=== PATIENT | female | born 1965 | race Caucasian/White ===

== ENCOUNTER 2017-04-27 16:04 | Emergency (ER) | payer BC ==
[~2017-04-27] VITALS: Ht 172.7 cm; Wt 113.4 kg
[~2017-04-27 16:04] MED LIST: AMOX-355 PO; ATRV10T PO; CODE118S2 PO; DOXY-233 PO; EST025TD TD; ESTR0.5T PO; Hydrocodone Bit/Acetaminophen PO; IBP600T1 PO; IPRA3AMP INH; Ibuprofen PO; LACT1CAP8 PO; LEVO500T80 PO; LEVO750T39 PO; LORA10TA76 PO; LOSA1TAB19 PO; LOSA1TAB26 PO; NEBU-140 MC; Simethicone PO; VALS1TAB4 PO; VICODIN PO
--- OUTSIDE RECORDS SUMMARY | 2017-04-27 16:09 | XMS REPORT | Clinical Summary ---
Author Author [facility] Organization [facility] Address Unknown Phone Unavailable Care Team Providers Care Senior Project Manager Engineering Name Role Phone Raad Hernandez MD Unavailable Angely So MD Unavailable Source Comments Some departments are not documenting in the electronic medical record. If you do not see the information that you expected, contact Release of Information in the Health Information Management department at [phone] for further assistance in locating additional records.[facility] Allergies Active Allergy Reactions Severity Noted Date Comments Cephalexin HIVES Medium 08/06/2014 Current Medications Prescription Sig. Disp. Refills Start End Date Status Date losartan/hydrochlorothiaz Take by mouth daily. Active alex (HYZAAR) 100/12.5 mg tablet IBUPROFEN PO Take by mouth. Active cetirizine (ZYRTEC) 10 mg 02/25/19 Active tablet 17 fluticasone (FLONASE) 50 05/08/19 Active mcg/actuation nasal spray 17 Active Problems Problem Noted Date History of optic neuritis 08/06/2014 Overview: Onset May 2014 MRI head 2015 essentially normal- a few tiny scattered white matter lesions. 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 Discussed with patient that she continues to have about a 20% risk of going on to develop MS. Will repeat MRI brain in 1 year. Encouraged healthy lifestyle with diet and exercise. Family History Medical History Relation Name Comments Cataract Father Coronary Artery Disease Father Hypertension Father Neurologic Disorder Maternal Alzheimer's Grandfather Diabetes Maternal Uncle Diabetes Maternal Uncle Blindness Mother prism in glasses, bleed OS Stroke Mother Thyroid Disease Mother Cancer Paternal Aunt Leukemia Cancer Paternal Metastasis to bones Grandfather Neurologic Disorder Paternal Dementia Grandmother Relation Name Status Comments Father Maternal Grandfather Maternal Uncle Maternal Uncle Mother Paternal Aunt Paternal Grandfather Paternal Grandmother Social History Tobacco Use Types Packs/Day Years Used Date Never Smoker Smokeless Tobacco: Never Used Alcohol Use Drinks/Week oz/Week Comments Yes 0 Standard 0.0 ~2x/yr drinks or equivalent Sex Assigned at Date Recorded Not on file Last Filed Vital Signs Vital Sign Reading Time Taken Blood Pressure 138/96 01/20/2015 12:21 PM [facility] Pulse 63 01/20/2015 12:21 PM [facility] Temperature - - Respiratory Rate - - Oxygen Saturation - - Inhaled Oxygen - - Concentration Weight 115 kg (253 lb 8.5 oz) 05/13/2016 1:35 PM CDT Height 172.7 cm (5' 8") 05/13/2016 1:35 PM CDT Body Mass Index 38.55 05/13/2016 1:35 PM CDT Plan of Treatment Health Maintenance Due Date Last Done Comments PHYSICAL (COMPREHENSIVE) 1973 EXAM PERTUSSIS VACCINE 1977 TETANUS VACCINE 04/24/1983 CERVICAL CANCER SCREENING 1996 BREAST CANCER SCREENING 2006 COLORECTAL CANCER 2016 SCREENING INFLUENZA VACCINE 11/21/2017 Results Not on filefrom Last 3 Months
--- OUTSIDE RECORDS SUMMARY | 2017-04-27 16:11 | XMS REPORT | CCD ---
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 Name Role Phone PP Unavailable CCM Unavailable Summary Purpose Interface Exchange Insurance Providers Payer name Policy type / Coverage type Covered constitution party ID Effective Begin Date Effective End Date Blue Cross Blue [facility] Blue Cross/Blue [facility] [id number] Unknown Unknown Family history Grandfather Diagnosis Age At Onset No Family Disease Entered N/A Runs in the family Diagnosis Age At Onset No Family Disease Entered N/A Mother Diagnosis Age At Onset Hypertension Unknown Stroke Unknown Brother Diagnosis Age At Onset Denies: Hypertension Unknown Hyperlipidemia Unknown Father Diagnosis Age At Onset Hypertension Unknown Hypercholesterolemia Unknown Social History Social History Element Codes Description Effective Dates Marital status Unknown 10/03/2012 Employment Unknown Currently employed [employer] 10/03/[address]: 063749740 Never smoker 10/03/[address]: 102795872 Never drinks alcohol 10/03/2012 Has the patient ever used illegal drugs? Unknown Has never used illegal drugs 10/03/2012 Allergies, Adverse Reactions, Alerts Allergies, Adverse Reactions, Alerts data not found Past Medical History Illness Codes Condition Status Onset Date Resolved Date Abrasion of vagina and vulva, initial encounter ICD-9: 911.0 ICD-10: S30.814A Active 11/25/2016 Unknown Encounter for gynecological examination (general) (routine ) without abnormal findings ICD-9: V72.31 ICD-10: Z01.419 Active 11/25/2016 Unknown Allergic rhinitis due to pollen ICD-9: 477.0 ICD-10: J30.1 Active 07/09/2016 Unknown Low back pain ICD-9: 724.2 ICD-10: M54.5 Active 07/09/2016 Unknown Other allergic rhinitis ICD-9: 477.8 ICD-10: J30.89 Active 01/25/2016 Unknown Acute laryngopharyngitis ICD-9: 465.0 ICD-10: J06.0 Active 12/11/2015 Unknown Other acute sinusitis ICD-9: 461.8 ICD-10: J01.80 Active 11/25/2015 Unknown Acute recurrent maxillary sinusitis ICD-9: 461.0 ICD-10: J01.01 Active 06/24/2015 Unknown Acute upper respiratory infection, unspecified ICD-9: 465.9 ICD-10: J06.9 Active 06/24/2015 Unknown Other allergic rhinitis ICD-9: 477.9 ICD-10: J30.89 Active 06/24/2015 Unknown Other obesity due to excess calories ICD-9: 278.00 ICD-10: E66.09 Active 06/24/2015 Unknown Cough ICD-9: 786.2 ICD-10: R05 Active 05/01/2015 Unknown Encounter for follow-up examination after completed treatment for conditions other than malignant neoplasm ICD-9: V67.59 ICD-10: Z09 Active 05/01/2015 Unknown Other specified noninfective gastroenteritis and colitis ICD-9: 558.9 ICD-10: K52.89 Active 05/01/2015 Unknown Unspecified bacterial pneumonia ICD-9: 482.9 ICD-10: J15.9 Active 05/01/2015 Unknown Hypoxemia ICD-9: 799.02 ICD-10: R09.02 Active 04/20/2015 Unknown Nausea with vomiting, unspecified ICD-9: 787.01 ICD-10: R11.2 Active 04/20/2015 Unknown Other acute sinusitis ICD-9: 461.9 ICD-10: J01.80 Active 04/14/2015 Unknown ACUTE SINUSITIS ICD-9 : 461.9 Active 09/02/2014 Unknown ALLERGIC RHINITIS ICD- 9: 477.9 Active 09/02/2014 Unknown Sudden visual loss of left eye ICD-9: 368.11 Active 05/27/2014 Unknown ESSENTIAL HYPERTENSION ICD-9: 401.9 Active 04/30/2014 Unknown MALAISE AND FATIGUE ICD-9: 780.79 Active 04/30/2014 Unknown Menopausal symptoms ICD-9: 627.2 Active 04/30/2014 Unknown ACUTE FRONTAL SINUSITIS ICD-9: 461.1 Active 04/04/2014 Unknown COUGH ICD-9: 786.2 Active 04/04/2014 Unknown HEADACHE ICD-9: 784.0 Active 04/04/2014 Unknown Ovarian mass ICD-9: 620.9 Active 12/04/2013 Unknown Uterine fibroid ICD-9 : 218.9 Active 12/04/2013 Unknown Abdominal pain ICD-9: 789.00 Active 10/25/2013 Unknown Diarrhea ICD-9: 787.91 Active 10/25/2013 Unknown DYSURIA ICD-9: 788.1 Active 10/16/2013 Unknown Hyperlipidemia ICD-9: 272.4 Active 07/30/2013 Unknown ROUTINE GYNE EXAM ICD- 9: V72.31 Active 10/26/2012 Unknown epidural injections Unknown Active 08/21/2007 Unknown herniated disc Unknown Active 10/03/2012 Unknown Hyperlipidemia Unknown Active 10/03/2012 Unknown Hypertension Unknown Active 10/03/2012 Unknown OBESITY ICD-9: 278.00 Active 10/03/2012 Unknown Problems Condition Codes Effective Dates Condition Status Abrasion of vagina and vulva, initial encounter ICD-9: 911.0 ICD-10: S30.814A 11/25/2016 Active Encounter for gynecological examination (general) (routine ) without abnormal findings ICD-9: V72.31 ICD-10: Z01.419 11/25/2016 Active Allergic rhinitis due to pollen ICD-9: 477.0 ICD-10: J30.1 07/09/2016 Active Low back pain ICD-9: 724.2 ICD-10: M54.5 07/09/2016 Active Other allergic rhinitis ICD-9: 477.8 ICD-10: J30.89 01/25/2016 Active Acute laryngopharyngitis ICD-9: 465.0 ICD-10: J06.0 12/11/2015 Active Other acute sinusitis ICD-9: 461.8 ICD-10: J01.80 11/25/2015 Active Acute recurrent maxillary sinusitis ICD-9: 461.0 ICD-10: J01.01 06/24/2015 Active Acute upper respiratory infection, unspecified ICD-9: 465.9 ICD-10: J06.9 06/24/2015 Active Other allergic rhinitis ICD-9: 477.9 ICD-10: J30.89 06/24/2015 Active Other obesity due to excess calories ICD-9: 278.00 ICD-10: E66.09 06/24/2015 Active Cough ICD-9: 786.2 ICD-10: R05 05/01/2015 Active Encounter for follow-up examination after completed treatment for conditions other than malignant neoplasm ICD-9: V67.59 ICD-10: Z09 05/01/2015 Active Other specified noninfective gastroenteritis and colitis ICD-9: 558.9 ICD-10: K52.89 05/01/2015 Active Unspecified bacterial pneumonia ICD-9: 482.9 ICD-10: J15.9 05/01/2015 Active Hypoxemia ICD-9: 799.02 ICD-10: R09.02 04/20/2015 Active Nausea with vomiting, unspecified ICD-9: 787.01 ICD-10: R11.2 04/20/2015 Active Other acute sinusitis ICD-9: 461.9 ICD-10: J01.80 04/14/2015 Active ACUTE SINUSITIS ICD-9 : 461.9 09/02/2014 Active ALLERGIC RHINITIS ICD- 9: 477.9 09/02/2014 Active Sudden visual loss of left eye ICD-9: 368.11 05/27/2014 Active ESSENTIAL HYPERTENSION ICD-9: 401.9 04/30/2014 Active MALAISE AND FATIGUE ICD-9: 780.79 04/30/2014 Active Menopausal symptoms ICD-9: 627.2 04/30/2014 Active ACUTE FRONTAL SINUSITIS ICD-9: 461.1 04/04/2014 Active COUGH ICD-9: 786.2 04/04/2014 Active HEADACHE ICD-9: 784.0 04/04/2014 Active Ovarian mass ICD-9: 620.9 12/04/2013 Active Uterine fibroid ICD-9 : 218.9 12/04/2013 Active Abdominal pain ICD-9: 789.00 10/25/2013 Active Diarrhea ICD-9: 787.91 10/25/2013 Active DYSURIA ICD-9: 788.1 10/16/2013 Active Hyperlipidemia ICD-9: 272.4 07/30/2013 Active ROUTINE GYNE EXAM ICD- 9: V72.31 10/26/2012 Active epidural injections Unknown 08/21/2007 Active herniated disc Unknown 10/03/2012 Active Hyperlipidemia Unknown 10/03/2012 Active Hypertension Unknown 10/03/2012 Active OBESITY ICD-9: 278.00 10/03/2012 Active Medications Medication Codes Instructions Start Date Stop Date Status Fill Instructions Zyrtec 10 mg tablet RxNorm: 6407247 1 TABLET(S) PO DAILY 03/0712/01/2017 Active losartan 100 mg-hydrochlorothiazide 12.5 mg tablet RxNorm: 601717 1 TABLET(S) PO DAILY 02/10/2017 09/07/2017 Active ProAir HFA 90 mcg/actuation aerosol inhaler RxNorm: 907026 1-2 INH PRN shortness of breath 11/25/2016 No Stop Date Active Flonase Allergy Relief 50 mcg/actuation nasal spray, suspension RxNorm: 4733314 1 SPRAY NASAL BID 09/16/2016 No Stop Date Active prednisone 20 mg tablet RxNorm: 189524 1 Tablet(s) PO BID 07/1207/11/2016 Inactive Augmentin 875 mg-125 mg tablet RxNorm: 022892 1 Tablet(s) PO BID 07/12/2016 07/18/2016 Inactive prednisone 20 mg tablet RxNorm: 265681 1 Tablet(s) PO BID 07/1207/16/2016 Inactive Kenalog 40 mg/mL suspension for injection RxNorm: 3950431 1.5 Milliliter(s) Inj 07/09/2016 07/09/2016 Inactive losartan 100 mg-hydrochlorothiazide 12.5 mg tablet RxNorm: 268084 1 Tablet(s) PO daily 06/10/2016 02/04/2017 Inactive Flonase Allergy Relief 50 mcg/actuation nasal spray, suspension RxNorm: 0993405 1 SPRAY NASAL BID 05/07/20162016 Inactive Flonase Allergy Relief 50 mcg/actuation nasal spray, suspension RxNorm: 0006732 1 SPRAY NASAL BID 02/19/20162016 Inactive Levaquin 500 mg tablet RxNorm: 300165 1 Tablet(s) PO daily 08/201502/03/2016 Inactive Flonase Allergy Relief 50 mcg/actuation nasal spray, suspension RxNorm: 5477310 1 Alpha NASAL BID 01/26/20162015 Inactive Zyrtec 10 mg tablet RxNorm: 9468481 1 Tablet(s) PO daily 01/2511/20/2016 Inactive albuterol sulfate 2.5 mg/3 mL (0.083 %) solution for nebulization RxNorm: 410105 1 Milliliter(s) INH 12/12/20152016 Inactive Zyrtec 10 mg tablet RxNorm: 6117347 1 Tablet(s) PO daily 12/1101/10/2016 Inactive Augmentin 875 mg-125 mg tablet RxNorm: 142198 1 Tablet(s) PO BID 12/12/2015 12/21/2015 Inactive Levaquin 500 mg tablet RxNorm: 986655 1 Tablet(s) PO daily 06/201512/02/2015 Inactive Diflucan 150 mg tablet RxNorm: 896330 1 Tablet(s) PO daily start after finished with levaquin 11/26/2015 11/30/2015 Inactive Kenalog 40 mg/mL suspension for injection RxNorm: 7831169 1 Milliliter(s) Inj 11/26/2015 11/26/2015 Inactive losartan 100 mg-hydrochlorothiazide 12.5 mg tablet RxNorm: 895844 1 Tablet(s) PO daily 06/30/2015 06/09/2016 Inactive Augmentin 875 mg-125 mg tablet RxNorm: 007378 1 Tablet(s) PO BID 06/25/2015 07/04/2015 Inactive Kenalog 40 mg/mL suspension for injection RxNorm: 5531158 Milliliter(s) Inj 06/25/2015 06/25/2015 Inactive Levaquin 500 mg tablet RxNorm: 397089 1 Tablet(s) PO daily 04/21/2015 Inactive prednisone 20 mg tablet RxNorm: 392376 2 Tablet(s) PO daily 04/19/2015 Inactive Augmentin 875 mg-125 mg tablet RxNorm: 932277 1 Tablet(s) PO BID 03/11/2015 03/17/2015 Inactive Kenalog 40 mg/mL suspension for injection RxNorm: 8984428 Milliliter(s) Inj 03/11/2015 03/11/2015 Inactive losartan 100 mg-hydrochlorothiazide 12.5 mg tablet RxNorm: 862556 1 TABLET(S) DAILY 1 TABLET(S) PO DAILY 02/11/2015 Inactive losartan 100 mg-hydrochlorothiazide 12.5 mg tablet RxNorm: 532097 1 TABLET(S) DAILY 1 TABLET(S) PO DAILY 10/10/2014 Inactive Kenalog 40 mg/mL suspension for injection RxNorm: 0144040 Milliliter(s) Inj 09/03/2014 09/03/2014 Inactive amoxicillin 500 mg tablet RxNorm: 089335 1 Tablet(s) PO TID 09/12/2014 Inactive Kenalog 40 mg/mL suspension for injection RxNorm: 9980663 2 Milliliter(s) Inj 05/27/2014 05/27/2014 Inactive prednisone 10 mg tablet RxNorm: 351449 6pills days #1-3, 4pills days #4-6, 2pills days#7-9, 1pill days #10-13, 1/2 pill every other day x4 doses then stop taper 05/27/2014 11/25/2015 Inactive losartan 100 mg-hydrochlorothiazide 12.5 mg tablet RxNorm: 641252 1 Tablet(s) daily 1 TABLET(S) PO DAILY 05/06/201401/2015 Inactive estradiol 0.5 mg tablet RxNorm: 177239 1 Tablet(s) PO BID 04/3011/24/2016 Inactive Kenalog 40 mg/mL suspension for injection RxNorm: 1031903 Milliliter(s) Inj 04/04/2014 04/04/2014 Inactive sulfamethoxazole 800 mg-trimethoprim 160 mg tablet RxNorm: 424783 1 Tablet(s) PO BID 04/04/2014 04/13/2014 Inactive losartan 100 mg-hydrochlorothiazide 12.5 mg tablet RxNorm: 279334 1 TABLET(S) PO DAILY 11/05/2013 04/03/2014 Inactive Flagyl 500 mg tablet RxNorm: 947218 1 Tablet(s) PO TID 201310/20/2013 Inactive ciprofloxacin 500 mg tablet RxNorm: 679435 1 Tablet(s) PO BID 10/16/2013 10/22/2013 Inactive fluconazole 150 mg tablet RxNorm: 938258 1 Tablet(s) PO every other day 10/16/2013 10/24/2013 Inactive Lipitor 10 mg tablet RxNorm: 425459 1 TABLET(S) PO QPM TAKE 1 TABLET BY MOUTH DAILY 10/08/2013 10/08/2013 Inactive Lipitor 10 mg tablet RxNorm: 768899 1 Tablet(s) PO QPM TAKE 1 TABLET BY MOUTH DAILY 07/05/2013 10/02/2013 Inactive Lipitor 10 mg tablet RxNorm: 742505 Tablet(s) PO TAKE 1 TABLET BY MOUTH DAILY 07/05/2013 10/02/2013 Inactive Lipitor 10 mg tablet RxNorm: 625906 Tablet(s) PO TAKE 1 TABLET BY MOUTH DAILY 06/04/2013 07/04/2013 Inactive losartan 100 mg-hydrochlorothiazide 12.5 mg tablet RxNorm: 637349 1 Tablet(s) PO daily 05/16/2013 11/04/2013 Inactive Lipitor 10 mg tablet RxNorm: 474179 1 Tablet(s) PO daily 201210/05/2012 Inactive Lipitor 10 mg tablet RxNorm: 844336 1 Tablet(s) PO daily 201205/03/2013 Inactive losartan 100 mg-hydrochlorothiazide 12.5 mg tablet RxNorm: 781850 1 Tablet(s) PO daily No Start Date 05/15/2013 Inactive Medication Administered Medication Codes Instructions Start Date Status Kenalog 40 mg/mL suspension for injection RxNorm: 9397335 1.5Milliliter 07/09/2016 No longer Active Kenalog 40 mg/mL suspension for injection RxNorm: 3606337 1Milliliter 11/26/2015 No longer Active Kenalog 40 mg/mL suspension for injection RxNorm: 8026880 Milliliter 06/25/2015 No longer Active Kenalog 40 mg/mL suspension for injection RxNorm: 0381048 Milliliter 03/11/2015 No longer Active Kenalog 40 mg/mL suspension for injection RxNorm: 6357918 Milliliter 09/03/2014 No longer Active Kenalog 40 mg/mL suspension for injection RxNorm: 8326619 2Milliliter 05/27/2014 No longer Active Kenalog 40 mg/mL suspension for injection RxNorm: 7919534 Milliliter 04/04/2014 No longer Active Immunizations No Immunization data Assessments Condition Codes Effective Dates Encounter for gynecological examination (general) (routine) without abnormal findings ICD-10: Z01.419 ICD-9: V72.31 11/25/2016 Abrasion of vagina and vulva, initial encounter ICD-10: S30.814A ICD-9: 911.0 11/25/2016 Allergic rhinitis due to pollen ICD-10: J30.1 ICD-9: 477.0 07/09/2016 Low back pain ICD-10: M54.5 ICD-9: 724.2 07/09/2016 Other allergic rhinitis ICD-10: J30.89 ICD-9: 477.8 01/26/2016 Acute laryngopharyngitis ICD-10: J06.0 ICD-9: 465.0 12/12/2015 Other acute sinusitis ICD-10: J01.80 ICD-9: 461.8 11/26/2015 Other allergic rhinitis ICD-10: J30.89 ICD-9: 477.9 06/25/2015 Acute recurrent maxillary sinusitis ICD-10: J01.01 ICD-9: 461.0 06/25/2015 Acute upper respiratory infection, unspecified ICD-10: J06.9 ICD-9: 465.9 06/25/2015 Other obesity due to excess calories ICD-10: E66.09 ICD-9: 278.00 06/25/2015 Encounter for follow-up examination after completed treatment for conditions other than malignant neoplasm ICD-10: Z09 ICD-9: V67.59 05/02/2015 Cough ICD-10: R05 ICD-9: 786.2 05/02/2015 Other specified noninfective gastroenteritis and colitis ICD -10: K52.89 ICD-9: 558.9 05/02/2015 Unspecified bacterial pneumonia ICD-10: J15.9 ICD-9: 482.9 05/02/2015 Hypoxemia ICD-10: R09.02 ICD-9: 799.02 04/21/2015 Nausea with vomiting, unspecified ICD-10: R11.2 ICD-9: 787.01 04/21/2015 Other acute sinusitis ICD-10: J01.80 ICD-9: 461.9 04/15/2015 ALLERGIC RHINITIS ICD-9: 477.9 2014 ACUTE SINUSITIS ICD-9: 461.9 09/03/2014 Pentecostalism tenderness ICD-9: 784.0 2014 Sudden visual loss of left eye ICD-9: 368.11 05/27/2014 ESSENTIAL HYPERTENSION ICD-9: 401.9 04/30 MALAISE AND FATIGUE ICD-9: 780.79 2014 Menopausal symptoms ICD-9: 627.2 2014 ACUTE FRONTAL SINUSITIS ICD-9: 461.1 01/2015 COUGH ICD-9: 786.2 04/04/2014 Abdominal pain ICD-9: 789.00 12/04/2013 Uterine fibroid ICD-9: 218.9 12/04/2013 Ovarian mass ICD-9: 620.9 12/04/2013 Diarrhea ICD-9: 787.91 10/25/2013 DYSURIA ICD-9: 788.1 10/16/2013 Hyperlipidemia ICD-9: 272.4 07/30/2013 ROUTINE GYNE EXAM ICD-9: V72.31 2012 OBESITY ICD-9: 278.00 10/03/2012 Reason For Visit Reason For Visit Effective Dates Notes vaginal bleeding 11/25/2016 sinus congestion 07/09/2016 sinus congestion 01/26/2016 sinus congestion 12/12/2015 sinus congestion 11/26/2015 cough 06/25/2015 cough 05/02/2015 cough 04/21/2015 cough 04/15/2015 sinus congestion 03/11/2015 cough 09/03/2014 vision change 05/27/2014 fatigue 04/30/2014 hot flashes sinus congestion 04/04/2014 abdominal pain 12/04/2013 abdominal pain 10/25/2013 dysuria 10/16/2013 hypertension 07/30/2013 well woman exam (40-65 years) 10/26/2012 hypertension 10/03/2012 Results No Results data Review of Systems System Result Effective Dates Constitutional recent illness 11/25/2016 Constitutional No night sweats 2016 Constitutional No chills 11/25/2016 Constitutional No diaphoresis 11/25/2016 Constitutional fatigue 11/25/2016 Constitutional No insomnia 11/25/2016 Constitutional malaise 11/25/2016 Eyes No eye discharge 11/25/2016 Eyes No eye erythema 11/25/2016 Ears/Nose/Throat/Neck No dizziness 2016 Ears/Nose/Throat/Neck No nasal discharge 11/25/2016 Ears/Nose/Throat/Neck No otalgia 2016 Ears/Nose/Throat/Neck No sinus congestion 11/25/2016 Cardiovascular No chest pain/pressure 06/2016 Respiratory No productive sputum 2016 Respiratory No chest congestion 2016 Respiratory cough 11/25/2016 Gastrointestinal No abdominal pain 2016 Gastrointestinal No constipation 2016 Gastrointestinal No diarrhea 11/25/2016 Gastrointestinal No nausea 11/25/2016 Gastrointestinal No vomiting 11/25/2016 Dermatologic No sores 11/25/2016 Psychiatric No anxiety 11/25/2016 Psychiatric No depression 11/25/2016 Respiratory chest tightness 11/25/2016 Genitourinary/Nephrology vaginal discharge 11/25/2016 Constitutional recent illness 07/09/2016 Constitutional No anorexia 07/09/2016 Constitutional No night sweats 2016 Constitutional No chills 07/09/2016 Constitutional No diaphoresis 07/09/2016 Constitutional No fatigue 07/09/2016 Constitutional No fever 07/09/2016 Constitutional No insomnia 07/09/2016 Constitutional No malaise 07/09/2016 Constitutional No weight loss 07/09/2016 Constitutional No weight gain 07/09/2016 Eyes No eye discharge 07/09/2016 Eyes No eye erythema 07/09/2016 Ears/Nose/Throat/Neck nasal allergies Ears/Nose/Throat/Neck nasal discharge Ears/Nose/Throat/Neck otalgia 07/09/2016 Cardiovascular No chest pain/pressure Respiratory No cough 07/09/2016 Gastrointestinal No abdominal pain 2016 Gastrointestinal No constipation 2016 Gastrointestinal No diarrhea 07/09/2016 Musculoskeletal neck pain 07/09/2016 Musculoskeletal myalgias 07/09/2016 Dermatologic No rash 07/09/2016 Dermatologic No sores 07/09/2016 Neurologic No alteration of consciousness 07/09/2016 Constitutional No recent illness 2015 Constitutional No chills 01/26/2016 Constitutional No diaphoresis 01/26/2016 Constitutional No fever 01/26/2016 Eyes No eye erythema 01/26/2016 Ears/Nose/Throat/Neck nasal allergies 06/2015 Ears/Nose/Throat/Neck nasal discharge 06/2015 Cardiovascular No chest pain/pressure 06/2015 Cardiovascular No dyspnea 01/26/2016 Respiratory No cough 01/26/2016 Ears/Nose/Throat/Neck postnasal drip 06/2015 Neurologic No alteration of consciousness 01/26/2016 Neurologic No mental status change 2015 Constitutional recent illness 12/12/2015 Constitutional No chills 12/12/2015 Constitutional No diaphoresis 12/12/2015 Constitutional No fever 12/12/2015 Eyes No eye erythema 12/12/2015 Eyes No vision change 12/12/2015 Ears/Nose/Throat/Neck nasal allergies Ears/Nose/Throat/Neck nasal discharge Ears/Nose/Throat/Neck otalgia 12/12/2015 Ears/Nose/Throat/Neck postnasal drip Ears/Nose/Throat/Neck sinus congestion Cardiovascular No chest pain/pressure Cardiovascular No dyspnea 12/12/2015 Respiratory No chest congestion 2015 Respiratory cough 12/12/2015 Respiratory No dyspnea 12/12/2015 Gastrointestinal No nausea 12/12/2015 Gastrointestinal No vomiting 12/12/2015 Musculoskeletal No joint complaint 2015 Neurologic No alteration of consciousness 12/12/2015 Neurologic No mental status change 2015 Constitutional recent illness 11/26/2015 Constitutional No chills 11/26/2015 Constitutional No diaphoresis 11/26/2015 Constitutional No fever 11/26/2015 Constitutional malaise 11/26/2015 Eyes No vision change 11/26/2015 Ears/Nose/Throat/Neck nasal allergies 06/2015 Ears/Nose/Throat/Neck nasal discharge 06/2015 Ears/Nose/Throat/Neck otalgia 11/26/2015 Ears/Nose/Throat/Neck postnasal drip 06/2015 Ears/Nose/Throat/Neck sinus congestion Cardiovascular No chest pain/pressure 06/2015 Respiratory No chest congestion 2015 Respiratory cough 11/26/2015 Respiratory No dyspnea 11/26/2015 Musculoskeletal No joint complaint 2015 Dermatologic No rash 11/26/2015 Dermatologic No sores 11/26/2015 Neurologic No alteration of consciousness 11/26/2015 Neurologic No mental status change 2015 Eyes No eye erythema 11/26/2015 Ears/Nose/Throat/Neck No sore throat 06/2015 Cardiovascular No dyspnea 11/26/2015 Gastrointestinal No vomiting 11/26/2015 Gastrointestinal No nausea 11/26/2015 Constitutional recent illness 06/25/2015 Constitutional No chills 06/25/2015 Constitutional No diaphoresis 06/25/2015 Constitutional fatigue 06/25/2015 Constitutional No fever 06/25/2015 Constitutional No insomnia 06/25/2015 Constitutional No malaise 06/25/2015 Eyes No vision change 06/25/2015 Ears/Nose/Throat/Neck nasal allergies 05/2015 Ears/Nose/Throat/Neck nasal discharge 05/2015 Ears/Nose/Throat/Neck otalgia 06/25/2015 Ears/Nose/Throat/Neck sinus congestion Cardiovascular No chest pain/pressure 05/2015 Respiratory No chest congestion 2015 Respiratory cough 06/25/2015 Respiratory dyspnea on exertion 2015 Respiratory No dyspnea 06/25/2015 Gastrointestinal No constipation 2015 Genitourinary/Nephrology No dysuria 06/24 Musculoskeletal No joint complaint 2015 Dermatologic No rash 06/25/2015 Dermatologic No sores 06/25/2015 Psychiatric No anxiety 06/25/2015 Psychiatric No depression 06/25/2015 Ears/Nose/Throat/Neck postnasal drip 05/2015 Gastrointestinal No diarrhea 06/25/2015 Neurologic No alteration of consciousness 06/25/2015 Neurologic No mental status change 2015 Constitutional recent illness 05/02/2015 Constitutional No anorexia 05/02/2015 Constitutional night sweats 05/02/2015 Constitutional No chills 05/02/2015 Constitutional No diaphoresis 05/02/2015 Constitutional fatigue 05/02/2015 Constitutional No fever 05/02/2015 Constitutional No insomnia 05/02/2015 Constitutional No malaise 05/02/2015 Constitutional No weight loss 05/02/2015 Constitutional No weight gain 05/02/2015 Constitutional No obesity 05/02/2015 Ears/Nose/Throat/Neck No nasal discharge 05/02/2015 Ears/Nose/Throat/Neck No nasal allergies 05/02/2015 Ears/Nose/Throat/Neck No otalgia 2015 Ears/Nose/Throat/Neck No otitis media 12/2015 Ears/Nose/Throat/Neck No sinus congestion 05/02/2015 Cardiovascular No chest pain/pressure 12/2015 Respiratory cough 05/02/2015 Respiratory dyspnea on exertion 2015 Respiratory No dyspnea 05/02/2015 Respiratory No cigarette smoking 2015 Respiratory No chest tightness 2015 Respiratory No productive sputum 2015 Respiratory No chest congestion 2015 Gastrointestinal diarrhea 05/02/2015 Gastrointestinal No constipation 2015 Genitourinary/Nephrology No dysuria 05/01 Musculoskeletal No joint complaint 2015 Musculoskeletal No muscle weakness 2015 Musculoskeletal No myalgias 05/02/2015 Dermatologic No rash 05/02/2015 Dermatologic No sores 05/02/2015 Psychiatric No depression 05/02/2015 Psychiatric No anxiety 05/02/2015 Eyes No vision change 05/02/2015 Gastrointestinal No constipation 2015 Gastrointestinal diarrhea 04/21/2015 Gastrointestinal nausea 04/21/2015 Gastrointestinal vomiting 04/21/2015 Constitutional recent illness 04/21/2015 Constitutional anorexia 04/21/2015 Constitutional night sweats 04/21/2015 Constitutional chills 04/21/2015 Constitutional diaphoresis 04/21/2015 Constitutional fatigue 04/21/2015 Constitutional fever 04/21/2015 Constitutional insomnia 04/21/2015 Eyes No eye discharge 04/21/2015 Eyes No eye erythema 04/21/2015 Ears/Nose/Throat/Neck No dizziness 2015 Ears/Nose/Throat/Neck No headache 2015 Ears/Nose/Throat/Neck nasal discharge Ears/Nose/Throat/Neck otalgia 04/21/2015 Ears/Nose/Throat/Neck No sore throat Ears/Nose/Throat/Neck No sinus congestion 04/21/2015 Cardiovascular No chest pain/pressure Respiratory productive sputum 04/21/2015 Respiratory cough 04/21/2015 Respiratory dyspnea 04/21/2015 Genitourinary/Nephrology No dysuria Musculoskeletal No joint complaint 2015 Dermatologic No rash 04/21/2015 Neurologic No alteration of consciousness 04/21/2015 Gastrointestinal No abdominal pain 2015 Constitutional recent illness 04/15/2015 Constitutional chills 04/15/2015 Constitutional No diaphoresis 04/15/2015 Constitutional No fatigue 04/15/2015 Constitutional fever 04/15/2015 Constitutional No insomnia 04/15/2015 Eyes No eye discharge 04/15/2015 Eyes No eye erythema 04/15/2015 Ears/Nose/Throat/Neck No dizziness 2015 Ears/Nose/Throat/Neck No headache 2015 Ears/Nose/Throat/Neck nasal discharge Ears/Nose/Throat/Neck otalgia 04/15/2015 Ears/Nose/Throat/Neck sinus congestion Ears/Nose/Throat/Neck sore throat 2015 Cardiovascular No chest pain/pressure Respiratory cough 04/15/2015 Respiratory No dyspnea 04/15/2015 Gastrointestinal No abdominal pain 2015 Gastrointestinal No constipation 2015 Gastrointestinal No nausea 04/15/2015 Gastrointestinal No vomiting 04/15/2015 Genitourinary/Nephrology No dysuria 04/15 Musculoskeletal No joint complaint 2015 Dermatologic No rash 04/15/2015 Neurologic No alteration of consciousness 04/15/2015 Gastrointestinal No diarrhea 04/15/2015 Respiratory No productive sputum 2015 Constitutional recent illness 03/11/2015 Constitutional No anorexia 03/11/2015 Constitutional No night sweats 2015 Constitutional No chills 03/11/2015 Constitutional No diaphoresis 03/11/2015 Constitutional fatigue 03/11/2015 Constitutional No fever 03/11/2015 Constitutional No insomnia 03/11/2015 Constitutional No malaise 03/11/2015 Constitutional No weight loss 03/11/2015 Constitutional No weight gain 03/11/2015 Constitutional obesity 03/11/2015 Eyes No eye pain 03/11/2015 Eyes No eye foreign body 03/11/2015 Eyes eye discharge 03/11/2015 Ears/Nose/Throat/Neck No headache 2015 Ears/Nose/Throat/Neck No dental pain Ears/Nose/Throat/Neck No dizziness 2015 Ears/Nose/Throat/Neck nasal discharge Ears/Nose/Throat/Neck No nasal allergies 03/11/2015 Ears/Nose/Throat/Neck No oral pain 2015 Ears/Nose/Throat/Neck sinus congestion Ears/Nose/Throat/Neck sore throat 2015 Respiratory No cigarette smoking 2015 Respiratory cough 03/11/2015 Respiratory No chest congestion 2015 Respiratory No chest tightness 2015 Respiratory No dyspnea 03/11/2015 Respiratory No dyspnea on exertion 2015 Gastrointestinal No constipation 2015 Gastrointestinal diarrhea 03/11/2015 Gastrointestinal No nausea 03/11/2015 Cardiovascular No chest pain/pressure Genitourinary/Nephrology No dysuria 03/11 Musculoskeletal No joint complaint 2015 Musculoskeletal No muscle weakness 2015 Musculoskeletal No myalgias 03/11/2015 Dermatologic No rash 03/11/2015 Dermatologic No sores 03/11/2015 Psychiatric No depression 03/11/2015 Psychiatric No anxiety 03/11/2015 Constitutional recent illness 09/03/2014 Constitutional No anorexia 09/03/2014 Constitutional night sweats 09/03/2014 Constitutional chills 09/03/2014 Constitutional diaphoresis 09/03/2014 Constitutional fatigue 09/03/2014 Constitutional No fever 09/03/2014 Constitutional insomnia 09/03/2014 Constitutional No malaise 09/03/2014 Constitutional No weight loss 09/03/2014 Constitutional No weight gain 09/03/2014 Eyes No eye discharge 09/03/2014 Eyes No eye erythema 09/03/2014 Ears/Nose/Throat/Neck No dizziness 2014 Ears/Nose/Throat/Neck headache 2014 Ears/Nose/Throat/Neck nasal allergies Ears/Nose/Throat/Neck nasal discharge Ears/Nose/Throat/Neck otalgia 09/03/2014 Ears/Nose/Throat/Neck sinus congestion Ears/Nose/Throat/Neck sore throat 2014 Cardiovascular No chest pain/pressure Respiratory cough 09/03/2014 Gastrointestinal No abdominal pain 2014 Gastrointestinal No constipation 2014 Gastrointestinal No diarrhea 09/03/2014 Genitourinary/Nephrology No dysuria 09/03 Musculoskeletal No joint complaint 2014 Dermatologic No rash 09/03/2014 Constitutional No recent illness 2014 Constitutional No chills 05/27/2014 Constitutional fatigue 05/27/2014 Constitutional No fever 05/27/2014 Constitutional malaise 05/27/2014 Eyes vision change 05/27/2014 Eyes No eye discharge 05/27/2014 Eyes eye floaters 05/27/2014 Eyes eye pain 05/27/2014 Cardiovascular No dyspnea 05/27/2014 Cardiovascular No fatigue 05/27/2014 Cardiovascular hypertension 05/27/2014 Respiratory No cough 05/27/2014 Endocrine No dry or coarse skin 2014 Endocrine No hair loss 05/27/2014 Hematologic/Lymphatic No abnormal ecchymoses 05/27/2014 Hematologic/Lymphatic No abnormal bleeding and bruising 05/27/2014 Constitutional recent illness 04/30/2014 Constitutional No night sweats 2014 Constitutional No chills 04/30/2014 Constitutional No diaphoresis 04/30/2014 Constitutional fatigue 04/30/2014 Constitutional No insomnia 04/30/2014 Constitutional malaise 04/30/2014 Eyes No eye discharge 04/30/2014 Eyes No eye erythema 04/30/2014 Ears/Nose/Throat/Neck No dizziness 2014 Ears/Nose/Throat/Neck No nasal discharge 04/30/2014 Ears/Nose/Throat/Neck No otalgia 2014 Ears/Nose/Throat/Neck No sinus congestion 04/30/2014 Cardiovascular No chest pain/pressure 11/2014 Respiratory No productive sputum 2014 Respiratory No chest congestion 2014 Respiratory No cough 04/30/2014 Gastrointestinal No abdominal pain 2014 Gastrointestinal No constipation 2014 Gastrointestinal No diarrhea 04/30/2014 Gastrointestinal No nausea 04/30/2014 Gastrointestinal No vomiting 04/30/2014 Genitourinary/Nephrology No dysuria 04/30 Musculoskeletal back pain 04/30/2014 Dermatologic rash 04/30/2014 Dermatologic No sores 04/30/2014 Neurologic No alteration of consciousness 04/30/2014 Psychiatric No anxiety 04/30/2014 Psychiatric No depression 04/30/2014 Constitutional No anorexia 04/04/2014 Constitutional No night sweats 2014 Constitutional No chills 04/04/2014 Constitutional No diaphoresis 04/04/2014 Constitutional fatigue 04/04/2014 Eyes No eye discharge 04/04/2014 Eyes No eye erythema 04/04/2014 Ears/Nose/Throat/Neck No dizziness 2014 Ears/Nose/Throat/Neck nasal discharge 01/2015 Ears/Nose/Throat/Neck No otalgia 2014 Ears/Nose/Throat/Neck No sinus congestion 04/04/2014 Cardiovascular No chest pain/pressure 01/2015 Respiratory No productive sputum 2014 Respiratory No chest congestion 2014 Respiratory No cough 04/04/2014 Gastrointestinal No abdominal pain 2014 Gastrointestinal No constipation 2014 Gastrointestinal No diarrhea 04/04/2014 Gastrointestinal No nausea 04/04/2014 Gastrointestinal No vomiting 04/04/2014 Musculoskeletal back pain 04/04/2014 Dermatologic rash 04/04/2014 Dermatologic No sores 04/04/2014 Neurologic No alteration of consciousness 04/04/2014 Psychiatric No anxiety 04/04/2014 Psychiatric No depression 04/04/2014 Constitutional recent illness 04/04/2014 Ears/Nose/Throat/Neck facial pain 2014 Ears/Nose/Throat/Neck headache 2014 Ears/Nose/Throat/Neck sinusitis 2014 Ears/Nose/Throat/Neck sore throat 2014 Cardiovascular fatigue 04/04/2014 Cardiovascular No syncope 04/04/2014 Respiratory chest tightness 04/04/2014 Constitutional No chills 12/04/2013 Constitutional No fatigue 12/04/2013 Constitutional No fever 12/04/2013 Constitutional No insomnia 12/04/2013 Constitutional No malaise 12/04/2013 Ears/Nose/Throat/Neck No dizziness 2013 Ears/Nose/Throat/Neck No dysphagia 2013 Cardiovascular No dyspnea 12/04/2013 Cardiovascular No edema 12/04/2013 Cardiovascular No fatigue 12/04/2013 Respiratory No chest tightness 2013 Respiratory No cigarette smoking 2013 Respiratory No cough 12/04/2013 Respiratory No dyspnea 12/04/2013 Respiratory No pedal edema 12/04/2013 Gastrointestinal No hemorrhoids 2013 Gastrointestinal No constipation 2013 Gastrointestinal No gastroesophageal reflux 12/04/2013 Gastrointestinal No melena 12/04/2013 Gastrointestinal No nausea 12/04/2013 Gastrointestinal vomiting 12/04/2013 Genitourinary/Nephrology No dysuria 12/04 Genitourinary/Nephrology No nocturia Genitourinary/Nephrology No urinary incontinence 12/04/2013 Musculoskeletal No stiffness 12/04/2013 Musculoskeletal No swelling 12/04/2013 Musculoskeletal No muscle weakness 2013 Musculoskeletal No myalgias 12/04/2013 Dermatologic No rash 12/04/2013 Dermatologic No scar 12/04/2013 Neurologic No dizziness 12/04/2013 Neurologic No headache 12/04/2013 Neurologic No neck pain 12/04/2013 Neurologic No syncope 12/04/2013 Psychiatric No anxiety 12/04/2013 Psychiatric No depression 12/04/2013 Gastrointestinal abdominal pain 2013 Constitutional recent illness 10/25/2013 Constitutional No chills 10/25/2013 Constitutional No fatigue 10/25/2013 Constitutional No fever 10/25/2013 Constitutional No insomnia 10/25/2013 Constitutional No malaise 10/25/2013 Eyes No blindness 10/25/2013 Eyes No vision change 10/25/2013 Ears/Nose/Throat/Neck No dental pain 05/2013 Ears/Nose/Throat/Neck No dizziness 2013 Ears/Nose/Throat/Neck No dysphagia 2013 Ears/Nose/Throat/Neck No headache 2013 Ears/Nose/Throat/Neck No hearing loss 05/2013 Ears/Nose/Throat/Neck No nasal allergies 10/25/2013 Ears/Nose/Throat/Neck No sore throat 05/2013 Ears/Nose/Throat/Neck No postnasal drip 10/25/2013 Ears/Nose/Throat/Neck No sinus congestion 10/25/2013 Cardiovascular No chest pain/pressure 05/2013 Cardiovascular No dyspnea 10/25/2013 Cardiovascular No edema 10/25/2013 Cardiovascular No exercise intolerance Cardiovascular No fatigue 10/25/2013 Cardiovascular No near-syncope/dizziness 10/25/2013 Respiratory No chest tightness 2013 Respiratory No cigarette smoking 2013 Respiratory No cough 10/25/2013 Respiratory No dyspnea 10/25/2013 Respiratory No pedal edema 10/25/2013 Respiratory No snoring 10/25/2013 Respiratory No wheezing 10/25/2013 Gastrointestinal No hemorrhoids 2013 Gastrointestinal abdominal pain 2013 Gastrointestinal No constipation 2013 Gastrointestinal diarrhea 10/25/2013 Gastrointestinal No gastroesophageal reflux 10/25/2013 Gastrointestinal No melena 10/25/2013 Gastrointestinal No nausea 10/25/2013 Gastrointestinal vomiting 10/25/2013 Genitourinary/Nephrology No dysuria 10/25 Genitourinary/Nephrology No nocturia 05/2013 Genitourinary/Nephrology No urinary incontinence 10/25/2013 Musculoskeletal No stiffness 10/25/2013 Musculoskeletal No swelling 10/25/2013 Musculoskeletal No muscle weakness 2013 Musculoskeletal No myalgias 10/25/2013 Dermatologic No rash 10/25/2013 Dermatologic No scar 10/25/2013 Neurologic No dizziness 10/25/2013 Neurologic No headache 10/25/2013 Neurologic No neck pain 10/25/2013 Neurologic No syncope 10/25/2013 Psychiatric No anxiety 10/25/2013 Psychiatric No depression 10/25/2013 Genitourinary/Nephrology dysuria 2013 Genitourinary/Nephrology No nocturia Genitourinary/Nephrology No urinary incontinence 10/16/2013 Constitutional recent illness 10/16/2013 Constitutional No anorexia 10/16/2013 Constitutional No night sweats 2013 Constitutional No chills 10/16/2013 Constitutional No diaphoresis 10/16/2013 Constitutional No fatigue 10/16/2013 Constitutional No fever 10/16/2013 Constitutional No insomnia 10/16/2013 Constitutional No malaise 10/16/2013 Constitutional No weight loss 10/16/2013 Constitutional weight gain 10/16/2013 Eyes No eye discharge 10/16/2013 Eyes No eye erythema 10/16/2013 Ears/Nose/Throat/Neck No dizziness 2013 Ears/Nose/Throat/Neck No nasal discharge 10/16/2013 Ears/Nose/Throat/Neck No otalgia 2013 Ears/Nose/Throat/Neck No sinus congestion 10/16/2013 Cardiovascular No chest pain/pressure Respiratory No productive sputum 2013 Respiratory No chest congestion 2013 Respiratory No cough 10/16/2013 Gastrointestinal No abdominal pain 2013 Gastrointestinal No constipation 2013 Gastrointestinal No diarrhea 10/16/2013 Gastrointestinal No nausea 10/16/2013 Gastrointestinal No vomiting 10/16/2013 Musculoskeletal back pain 10/16/2013 Dermatologic No sores 10/16/2013 Neurologic No alteration of consciousness 10/16/2013 Psychiatric No anxiety 10/16/2013 Psychiatric No depression 10/16/2013 Constitutional No recent illness 2013 Constitutional No anorexia 07/30/2013 Constitutional No night sweats 2013 Constitutional No chills 07/30/2013 Constitutional No diaphoresis 07/30/2013 Constitutional No fatigue 07/30/2013 Constitutional No fever 07/30/2013 Constitutional No insomnia 07/30/2013 Constitutional No malaise 07/30/2013 Constitutional No weight loss 07/30/2013 Constitutional weight gain 07/30/2013 Eyes No eye discharge 07/30/2013 Eyes No eye erythema 07/30/2013 Ears/Nose/Throat/Neck No dizziness 2013 Ears/Nose/Throat/Neck No nasal discharge 07/30/2013 Cardiovascular No chest pain/pressure 10/2013 Respiratory No productive sputum 2013 Respiratory No chest congestion 2013 Respiratory No cough 07/30/2013 Ears/Nose/Throat/Neck No otalgia 2013 Ears/Nose/Throat/Neck No sinus congestion 07/30/2013 Gastrointestinal No abdominal pain 2013 Gastrointestinal No constipation 2013 Gastrointestinal No diarrhea 07/30/2013 Gastrointestinal No vomiting 07/30/2013 Gastrointestinal No nausea 07/30/2013 Genitourinary/Nephrology No dysuria 07/30 Dermatologic rash 07/30/2013 Dermatologic No sores 07/30/2013 Musculoskeletal back pain 07/30/2013 Neurologic No alteration of consciousness 07/30/2013 Psychiatric No anxiety 07/30/2013 Psychiatric No depression 07/30/2013 Constitutional No fatigue 10/26/2012 Constitutional No fever 10/26/2012 Constitutional No insomnia 10/26/2012 Constitutional No recent illness 2012 Eyes No eye discharge 10/26/2012 Eyes No eye erythema 10/26/2012 Ears/Nose/Throat/Neck No headache 2012 Cardiovascular No chest pain/pressure 06/2012 Cardiovascular No edema 10/26/2012 Cardiovascular No near-syncope/dizziness 10/26/2012 Cardiovascular No syncope 10/26/2012 Respiratory No chest congestion 2012 Respiratory No chest tightness 2012 Respiratory No cough 10/26/2012 Respiratory No dyspnea 10/26/2012 Respiratory No productive sputum 2012 Gastrointestinal No abdominal pain 2012 Gastrointestinal No constipation 2012 Gastrointestinal No diarrhea 10/26/2012 Genitourinary/Nephrology No breast complaint 10/26/2012 Genitourinary/Nephrology No dysuria 10/26 Genitourinary/Nephrology No hematuria 06/2012 Genitourinary/Nephrology No urinary frequency 10/26/2012 Genitourinary/Nephrology No urinary incontinence 10/26/2012 Genitourinary/Nephrology No urinary urgency 10/26/2012 Genitourinary/Nephrology No vaginal discharge 10/26/2012 Genitourinary/Nephrology No menopausal symptoms 10/26/2012 Genitourinary/Nephrology No nocturia 06/2012 Genitourinary/Nephrology No Pap smear abnormality 10/26/2012 Musculoskeletal No joint complaint 2012 Neurologic No alteration of consciousness 10/26/2012 Constitutional No recent illness 2012 Constitutional No chills 10/03/2012 Constitutional No fatigue 10/03/2012 Constitutional No fever 10/03/2012 Constitutional No insomnia 10/03/2012 Constitutional No malaise 10/03/2012 Eyes No blindness 10/03/2012 Eyes No vision change 10/03/2012 Ears/Nose/Throat/Neck No dental pain Ears/Nose/Throat/Neck No dizziness 2012 Ears/Nose/Throat/Neck No dysphagia 2012 Ears/Nose/Throat/Neck No headache 2012 Ears/Nose/Throat/Neck No hearing loss Ears/Nose/Throat/Neck No nasal allergies 10/03/2012 Ears/Nose/Throat/Neck No sore throat Ears/Nose/Throat/Neck No postnasal drip 10/03/2012 Ears/Nose/Throat/Neck No sinus congestion 10/03/2012 Respiratory No chest tightness 2012 Respiratory No cigarette smoking 2012 Respiratory No cough 10/03/2012 Respiratory No dyspnea 10/03/2012 Respiratory No pedal edema 10/03/2012 Respiratory No snoring 10/03/2012 Respiratory No wheezing 10/03/2012 Genitourinary/Nephrology No dysuria 10/03 Genitourinary/Nephrology No nocturia Genitourinary/Nephrology No urinary incontinence 10/03/2012 Musculoskeletal No stiffness 10/03/2012 Musculoskeletal No swelling 10/03/2012 Musculoskeletal No muscle weakness 2012 Musculoskeletal No myalgias 10/03/2012 Dermatologic No rash 10/03/2012 Dermatologic No scar 10/03/2012 Neurologic No dizziness 10/03/2012 Neurologic No headache 10/03/2012 Neurologic No neck pain 10/03/2012 Neurologic No syncope 10/03/2012 Psychiatric No anxiety 10/03/2012 Psychiatric No depression 10/03/2012 Physical Exam Exam Name System Name Item Name Status Result Effective Dates Notes Full Exam - General 1994 Constitutional general appearance Overall: well developed 11/25/2016 None Full Exam - General 1994 Constitutional general appearance Overall: in no acute distress 11/25/2016 None Full Exam - General 1994 Constitutional general appearance Overall: well nourished 11/25/2016 None Full Exam - General 1994 Eyes pupils and irises Overall: pupils equal, round, reactive to light and accomodation 11/25/2016 None Full Exam - General 1994 Ears/Nose/Throat otoscopic exam Overall: external auditory canals clear 11/25/2016 None Full Exam - General 1994 Ears/Nose/Throat otoscopic exam Overall: tympanic membranes clear 11/25/2016 None Full Exam - General 1994 Ears/Nose/Throat oral cavity/pharynx/larynx Overall: oral mucosa clear 11/25/2016 None Full Exam - General 1994 Ears/Nose/Throat oral cavity/pharynx/larynx Overall: oropharyngeal mucosa clear 11/25/2016 None Full Exam - General 1994 Ears/Nose/Throat oral cavity/pharynx/larynx Overall: no masses 11/25/2016 None Full Exam - General 1994 Respiratory auscultation Overall: breath sounds clear bilaterally 11/25/2016 None Full Exam - General 1994 Cardiovascular extremities Overall: no clubbing 11/25/2016 None Full Exam - General 1994 Cardiovascular auscultation of heart Overall: regular rate 11/25/2016 None Full Exam - General 1994 Cardiovascular auscultation of heart Overall: normal heart sounds 11/25/2016 None Full Exam - General 1994 Cardiovascular auscultation of heart Overall: no murmurs 11/25/2016 None Full Exam - General 1994 Abdomen abdominal exam Overall: no tenderness 11/25/2016 None Full Exam - General 1994 Abdomen abdominal exam Overall: normal bowel sounds 11/25/2016 None Full Exam - General 1994 Musculoskeletal head and neck Overall: head atraumatic 11/25/2016 None Full Exam - General 1994 Musculoskeletal head and neck Overall: cervical spine benign 11/25/2016 None Full Exam - General 1994 Psychiatric mood and affect Overall: normal mood and affect 11/25/2016 None Full Exam - General 1994 Psychiatric mood and affect Mood: happy 11/25/2016 None Full Exam - General 1994 Genitourinary cervix Overall: surgically absent 11/25/2016 None Full Exam - General 1994 Genitourinary uterus Overall: surgically absent 11/25/2016 None Full Exam - General 1994 Genitourinary labia and vagina Overall: normal hair distribution 11/25/2016 None Full Exam - General 1994 Genitourinary labia and vagina Labia: lesions present 11/25/2016 left labia minora - abrasion at 3 oclock Full Exam - ENT Constitutional general appearance Overall: well nourished 07/09/2016 None Full Exam - ENT Constitutional general appearance Overall: well developed 07/09/2016 None Full Exam - ENT Constitutional general appearance Overall: in no acute distress 07/09/2016 None Full Exam - ENT Ears/Nose/Throat otoscopic exam Overall: external auditory canals normal 07/09/2016 None Full Exam - ENT Ears/Nose/Throat otoscopic exam Left tympanic membrane: air -fluid level 07/09/2016 None Full Exam - ENT Ears/Nose/Throat otoscopic exam Right tympanic membrane: air-fluid level 07/09/2016 None Full Exam - ENT Ears/Nose/Throat lips/ teeth/gingiva Overall: benign lips 07/09/2016 None Full Exam - ENT Ears/Nose/Throat oropharynx Overall: oral mucosa clear 07/09/2016 None Full Exam - ENT Ears/Nose/Throat oropharynx Posterior Pharynx: clear post nasal drainage 07/09/2016 None Full Exam - ENT Respiratory inspection Overall: no retractions 07/09/2016 None Full Exam - ENT Respiratory inspection Overall: normal rate None Full Exam - ENT Respiratory auscultation Overall: breath sounds clear bilaterally 07/09/2016 None Full Exam - ENT Cardiovascular auscultation of heart Overall: regular rate 07/09/2016 None Full Exam - ENT Cardiovascular auscultation of heart Overall: normal heart sounds 07/09/2016 None Full Exam - ENT Neurologic mood and affect Overall: normal mood 07/09/2016 None Full Exam - ENT Neurologic mood and affect Overall: normal affect 07/09/2016 None Full Exam - ENT Neurologic orientation Overall: oriented to person, place and time 07/09/2016 None Full Exam - ENT Lymphatic palpation of lymph nodes Overall: shotty lymphadenopathy 07/09/2016 on the right , no rash noted Full Exam - ENT Musculoskeletal head and neck Overall: cervical spine benign 07/09/2016 right neck muscles tender to palpation Full Exam - ENT Constitutional general appearance Overall: well nourished 01/26/2016 None Full Exam - ENT Constitutional general appearance Overall: well developed 01/26/2016 None Full Exam - ENT Constitutional general appearance Overall: in no acute distress 01/26/2016 None Full Exam - ENT Ears/Nose/Throat lips/ teeth/gingiva Overall: benign lips 01/26/2016 None Full Exam - ENT Ears/Nose/Throat otoscopic exam Overall: external auditory canals normal 01/26/2016 None Full Exam - ENT Ears/Nose/Throat otoscopic exam Left tympanic membrane: air -fluid level 01/26/2016 None Full Exam - ENT Ears/Nose/Throat otoscopic exam Right tympanic membrane: air-fluid level 01/26/2016 None Full Exam - ENT Ears/Nose/Throat oropharynx Overall: oral mucosa clear 01/26/2016 None Full Exam - ENT Ears/Nose/Throat oropharynx Posterior Pharynx: clear post nasal drainage 01/26/2016 None Full Exam - ENT Respiratory inspection Overall: no retractions 01/26/2016 None Full Exam - ENT Respiratory inspection Overall: normal rate 06/2015 None Full Exam - ENT Respiratory auscultation Overall: breath sounds clear bilaterally 01/26/2016 None Full Exam - ENT Cardiovascular auscultation of heart Overall: regular rate 01/26/2016 None Full Exam - ENT Cardiovascular auscultation of heart Overall: normal heart sounds 01/26/2016 None Full Exam - ENT Lymphatic palpation of lymph nodes Overall: anterior cervical chain benign 01/26/2016 None Full Exam - ENT Lymphatic palpation of lymph nodes Overall: posterior cervical chain benign 01/26/2016 None Full Exam - ENT Neurologic mood and affect Overall: normal mood 01/26/2016 None Full Exam - ENT Neurologic mood and affect Overall: normal affect 01/26/2016 None Full Exam - ENT Neurologic orientation Overall: oriented to person, place and time 01/26/2016 None Full Exam - General 1994 Constitutional general appearance Overall: well developed 12/12/2015 None Full Exam - General 1994 Constitutional general appearance Overall: in no acute distress 12/12/2015 None Full Exam - General 1994 Constitutional general appearance Overall: well nourished 12/12/2015 None Full Exam - General 1994 Eyes conjunctiva /eyelids Overall: conjunctiva clear 12/12/2015 None Full Exam - General 1994 Eyes conjunctiva /eyelids Overall: cornea clear 12/12/2015 None Full Exam - General 1994 Eyes conjunctiva /eyelids Overall: eyelids normal 12/12/2015 None Full Exam - General 1994 Eyes pupils and irises Overall: pupils equal, round, reactive to light and accomodation 12/12/2015 None Full Exam - General 1994 Ears/Nose/Throat otoscopic exam Overall: external auditory canals clear 12/12/2015 None Full Exam - General 1994 Ears/Nose/Throat lips/teeth/gingiva Overall: benign lips 12/12/2015 None Full Exam - General 1994 Ears/Nose/Throat lips/teeth/gingiva Overall: normal dentition 12/12/2015 None Full Exam - General 1994 Ears/Nose/Throat oral cavity/pharynx/larynx Overall: oral mucosa clear 12/12/2015 None Full Exam - General 1994 Ears/Nose/Throat oral cavity/pharynx/larynx Posterior Pharynx: clear post nasal drainage 12/12/2015 None Full Exam - General 1994 Respiratory auscultation Overall: breath sounds clear bilaterally 12/12/2015 None Full Exam - General 1994 Respiratory respiratory effort/rhythm Overall: no retractions 12/12/2015 None Full Exam - General 1994 Respiratory respiratory effort/rhythm Overall: normal rate 12/12/2015 None Full Exam - General 1994 Cardiovascular extremities Overall: no clubbing 12/12/2015 None Full Exam - General 1994 Cardiovascular auscultation of heart Overall: regular rate 12/12/2015 None Full Exam - General 1994 Cardiovascular auscultation of heart Overall: normal heart sounds 12/12/2015 None Full Exam - General 1994 Musculoskeletal gait and station Overall: normal gait 12/12/2015 None Full Exam - General 1994 Musculoskeletal gait and station Overall: normal station 12/12/2015 None Full Exam - General 1994 Neurologic cranial nerves Overall: crainial nerves 2 - 12 grossly intact 12/12/2015 None Full Exam - General 1994 Psychiatric orientation/consciousness Overall: oriented to person, place and time 12/12/2015 None Full Exam - General 1994 Psychiatric mood and affect Overall: normal mood and affect 12/12/2015 None Full Exam - General 1994 Psychiatric appearance Overall: well-groomed, good eye contact 12/12/2015 None Full Exam - General 1994 Ears/Nose/Throat otoscopic exam Tympanic membrane: air- fluid level 12/12/2015 None Full Exam - General 1994 Ears/Nose/Throat internal nose Sinus tenderness: right maxillary 12/12/2015 None Full Exam - General 1994 Ears/Nose/Throat internal nose Sinus tenderness: left maxillary 12/12/2015 None Full Exam - General 1994 Musculoskeletal head and neck Overall: head atraumatic 12/12/2015 None Full Exam - General 1994 Respiratory auscultation Lower lung field: expiratory wheezes 12/12/2015 None Full Exam - General 1994 Constitutional general appearance Overall: well developed 11/26/2015 None Full Exam - General 1994 Constitutional general appearance Overall: in no acute distress 11/26/2015 None Full Exam - General 1994 Constitutional general appearance Overall: well nourished 11/26/2015 None Full Exam - General 1994 Eyes conjunctiva /eyelids Overall: conjunctiva clear 11/26/2015 None Full Exam - General 1994 Eyes conjunctiva /eyelids Overall: cornea clear 11/26/2015 None Full Exam - General 1994 Eyes conjunctiva /eyelids Overall: eyelids normal 11/26/2015 None Full Exam - General 1994 Eyes pupils and irises Overall: pupils equal, round, reactive to light and accomodation 11/26/2015 None Full Exam - General 1994 Ears/Nose/Throat otoscopic exam Overall: external auditory canals clear 11/26/2015 None Full Exam - General 1994 Ears/Nose/Throat internal nose Sinus tenderness: left maxillary 11/26/2015 None Full Exam - General 1994 Ears/Nose/Throat internal nose Sinus tenderness: right maxillary 11/26/2015 None Full Exam - General 1994 Ears/Nose/Throat lips/teeth/gingiva Overall: benign lips 11/26/2015 None Full Exam - General 1994 Ears/Nose/Throat lips/teeth/gingiva Overall: normal dentition 11/26/2015 None Full Exam - General 1994 Ears/Nose/Throat oral cavity/pharynx/larynx Overall: oral mucosa clear 11/26/2015 None Full Exam - General 1994 Ears/Nose/Throat oral cavity/pharynx/larynx Posterior Pharynx: clear post nasal drainage 11/26/2015 None Full Exam - General 1994 Respiratory auscultation Overall: breath sounds clear bilaterally 11/26/2015 None Full Exam - General 1994 Respiratory respiratory effort/rhythm Overall: no retractions 11/26/2015 None Full Exam - General 1994 Respiratory respiratory effort/rhythm Overall: normal rate 11/26/2015 None Full Exam - General 1994 Cardiovascular extremities Overall: no clubbing 11/26/2015 None Full Exam - General 1994 Cardiovascular auscultation of heart Overall: regular rate 11/26/2015 None Full Exam - General 1994 Cardiovascular auscultation of heart Overall: normal heart sounds 11/26/2015 None Full Exam - General 1994 Musculoskeletal gait and station Overall: normal gait 11/26/2015 None Full Exam - General 1994 Musculoskeletal gait and station Overall: normal station 11/26/2015 None Full Exam - General 1994 Integument inspection of skin Overall: no rash, lesions 11/26/2015 None Full Exam - General 1994 Psychiatric orientation/consciousness Overall: oriented to person, place and time 11/26/2015 None Full Exam - General 1994 Psychiatric mood and affect Overall: normal mood and affect 11/26/2015 None Full Exam - General 1994 Psychiatric appearance Overall: well-groomed, good eye contact 11/26/2015 None Full Exam - General 1994 Ears/Nose/Throat otoscopic exam Tympanic membrane: bulging 11/26/2015 None Full Exam - General 1994 Ears/Nose/Throat otoscopic exam Tympanic membrane: air- fluid level 11/26/2015 None Full Exam - General 1994 Ears/Nose/Throat otoscopic exam Tympanic membrane: effusion 11/26/2015 None Full Exam - General 1994 Ears/Nose/Throat internal nose Sinus tenderness: right frontal 11/26/2015 None Full Exam - General 1994 Ears/Nose/Throat internal nose Sinus tenderness: left frontal 11/26/2015 None Full Exam - General 1994 Ears/Nose/Throat oral cavity/pharynx/larynx Oropharynx: erythema 11/26/2015 None Full Exam - General 1994 Neurologic cranial nerves Overall: crainial nerves 2 - 12 grossly intact 11/26/2015 None Full Exam - General 1994 Constitutional general appearance Overall: well developed 06/25/2015 None Full Exam - General 1994 Constitutional general appearance Overall: in no acute distress 06/25/2015 None Full Exam - General 1994 Constitutional general appearance Overall: well nourished 06/25/2015 None Full Exam - General 1994 Constitutional general appearance Hygiene/Attention to Grooming: good hygiene 06/25/2015 None Full Exam - General 1994 Eyes conjunctiva /eyelids Overall: conjunctiva clear 06/25/2015 None Full Exam - General 1994 Eyes conjunctiva /eyelids Overall: cornea clear 06/25/2015 None Full Exam - General 1994 Eyes conjunctiva /eyelids Overall: eyelids normal 06/25/2015 None Full Exam - General 1994 Eyes pupils and irises Overall: pupils equal, round, reactive to light and accomodation 06/25/2015 None Full Exam - General 1994 Ears/Nose/Throat otoscopic exam Overall: external auditory canals clear 06/25/2015 None Full Exam - General 1994 Ears/Nose/Throat lips/teeth/gingiva Overall: benign lips 06/25/2015 None Full Exam - General 1994 Ears/Nose/Throat oral cavity/pharynx/larynx Overall: oral mucosa clear 06/25/2015 None Full Exam - General 1994 Respiratory auscultation Overall: breath sounds clear bilaterally 06/25/2015 None Full Exam - General 1994 Cardiovascular extremities Overall: no clubbing 06/25/2015 None Full Exam - General 1994 Cardiovascular auscultation of heart Overall: regular rate 06/25/2015 None Full Exam - General 1994 Cardiovascular auscultation of heart Overall: normal heart sounds 06/25/2015 None Full Exam - General 1994 Musculoskeletal gait and station Overall: normal gait 06/25/2015 None Full Exam - General 1994 Musculoskeletal gait and station Overall: normal station 06/25/2015 None Full Exam - General 1994 Integument inspection of skin Overall: no rash, lesions 06/25/2015 None Full Exam - General 1994 Psychiatric orientation/consciousness Overall: oriented to person, place and time 06/25/2015 None Full Exam - General 1994 Psychiatric mood and affect Overall: normal mood and affect 06/25/2015 None Full Exam - General 1994 Psychiatric appearance Overall: well-groomed, good eye contact 06/25/2015 None Full Exam - General 1994 Ears/Nose/Throat otoscopic exam Tympanic membrane: air- fluid level 06/25/2015 None Full Exam - General 1994 Ears/Nose/Throat lips/teeth/gingiva Overall: normal dentition 06/25/2015 None Full Exam - General 1994 Ears/Nose/Throat oral cavity/pharynx/larynx Overall: oropharyngeal mucosa clear 06/25/2015 None Full Exam - General 1994 Ears/Nose/Throat oral cavity/pharynx/larynx Posterior Pharynx: clear post nasal drainage 06/25/2015 None Full Exam - General 1994 Respiratory respiratory effort/rhythm Overall: no retractions 06/25/2015 None Full Exam - General 1994 Respiratory respiratory effort/rhythm Overall: normal rate 06/25/2015 None Full Exam - General 1994 Ears/Nose/Throat internal nose Sinus tenderness: left maxillary 06/25/2015 None Full Exam - General 1994 Ears/Nose/Throat internal nose Sinus tenderness: right maxillary 06/25/2015 None Full Exam - General 1994 Constitutional general appearance Overall: well nourished 05/02/2015 None Full Exam - General 1994 Constitutional general appearance Overall: well developed 05/02/2015 None Full Exam - General 1994 Constitutional general appearance Overall: in no acute distress 05/02/2015 None Full Exam - General 1994 Constitutional general appearance Hygiene/Attention to Grooming: good hygiene 05/02/2015 None Full Exam - General 1994 Eyes pupils and irises Overall: pupils equal, round, reactive to light and accomodation 05/02/2015 None Full Exam - General 1994 Eyes conjunctiva /eyelids Overall: conjunctiva clear 05/02/2015 None Full Exam - General 1994 Eyes conjunctiva /eyelids Overall: eyelids normal 05/02/2015 None Full Exam - General 1994 Eyes conjunctiva /eyelids Overall: cornea clear 05/02/2015 None Full Exam - General 1994 Ears/Nose/Throat oral cavity/pharynx/larynx Overall: oropharyngeal mucosa clear 05/02/2015 None Full Exam - General 1994 Ears/Nose/Throat oral cavity/pharynx/larynx Overall: no masses 05/02/2015 None Full Exam - General 1994 Ears/Nose/Throat oral cavity/pharynx/larynx Overall: oral mucosa clear 05/02/2015 None Full Exam - General 1994 Ears/Nose/Throat lips/teeth/gingiva Overall: benign gingiva 05/02/2015 None Full Exam - General 1994 Ears/Nose/Throat lips/teeth/gingiva Overall: no masses 05/02/2015 None Full Exam - General 1994 Ears/Nose/Throat lips/teeth/gingiva Overall: normal dentition 05/02/2015 None Full Exam - General 1994 Ears/Nose/Throat lips/teeth/gingiva Overall: benign lips 05/02/2015 None Full Exam - General 1994 Ears/Nose/Throat otoscopic exam Overall: tympanic membranes clear 05/02/2015 None Full Exam - General 1994 Ears/Nose/Throat otoscopic exam Overall: external auditory canals clear 05/02/2015 None Full Exam - General 1994 Respiratory auscultation Overall: breath sounds clear bilaterally 05/02/2015 None Full Exam - General 1994 Cardiovascular auscultation of heart Overall: regular rate 05/02/2015 None Full Exam - General 1994 Cardiovascular auscultation of heart Overall: normal heart sounds 05/02/2015 None Full Exam - General 1994 Cardiovascular auscultation of heart Overall: no murmurs 05/02/2015 None Full Exam - General 1994 Cardiovascular extremities Overall: no clubbing 05/02/2015 None Full Exam - General 1994 Integument inspection of skin Overall: no rash, lesions 05/02/2015 None Full Exam - General 1994 Musculoskeletal gait and station Overall: normal station 05/02/2015 None Full Exam - General 1994 Musculoskeletal gait and station Overall: normal gait 05/02/2015 None Full Exam - General 1994 Psychiatric orientation/consciousness Overall: oriented to person, place and time 05/02/2015 None Full Exam - General 1994 Psychiatric appearance Overall: well-groomed, good eye contact 05/02/2015 None Full Exam - General 1994 Psychiatric mood and affect Overall: normal mood and affect 05/02/2015 None Full Exam - General 1994 Constitutional general appearance Overall: well developed 04/21/2015 None Full Exam - General 1994 Constitutional general appearance Overall: well nourished 04/21/2015 None Full Exam - General 1994 Eyes pupils and irises Overall: pupils equal, round, reactive to light and accomodation 04/21/2015 None Full Exam - General 1994 Ears/Nose/Throat otoscopic exam Overall: external auditory canals clear 04/21/2015 None Full Exam - General 1994 Ears/Nose/Throat otoscopic exam Overall: tympanic membranes clear 04/21/2015 None Full Exam - General 1994 Cardiovascular extremities Overall: no clubbing 04/21/2015 None Full Exam - General 1994 Cardiovascular auscultation of heart Overall: regular rate 04/21/2015 None Full Exam - General 1994 Cardiovascular auscultation of heart Overall: normal heart sounds 04/21/2015 None Full Exam - General 1994 Cardiovascular auscultation of heart Overall: no murmurs 04/21/2015 None Full Exam - General 1994 Abdomen abdominal exam Overall: no tenderness 04/21/2015 None Full Exam - General 1994 Abdomen abdominal exam Overall: normal bowel sounds 04/21/2015 None Full Exam - General 1994 Musculoskeletal head and neck Overall: head atraumatic 04/21/2015 None Full Exam - General 1994 Musculoskeletal head and neck Overall: cervical spine benign 04/21/2015 None Full Exam - General 1994 Psychiatric mood and affect Overall: normal mood and affect 04/21/2015 None Full Exam - General 1994 Psychiatric mood and affect Mood: happy 04/21/2015 None Full Exam - General 1994 Constitutional general appearance Evidence of Distress: mild distress 04/21/2015 ill appearing Full Exam - General 1994 Respiratory auscultation Lower lung field: crackles 04/21/2015 None Full Exam - General 1994 Integument inspection of skin Overall: few scattered moles, no gross abnormalities 04/21/2015 None Full Exam - General 1994 Respiratory auscultation Right middle lung field: crackles 04/21/2015 None Full Exam - General 1994 Respiratory respiratory effort/rhythm Overall: no retractions 04/21/2015 None Full Exam - General 1994 Respiratory respiratory effort/rhythm Overall: normal rate 04/21/2015 None Full Exam - General 1994 Neurologic deep tendon reflexes Overall: deep tendon reflexes intact 04/21/2015 None Full Exam - General 1994 Lymphatic neck nodes Overall: anterior cervical chain benign 04/21/2015 None Full Exam - General 1994 Lymphatic neck nodes Overall: posterior cervical chain benign 04/21/2015 None Full Exam - General 1994 Respiratory auscultation Right lower lung field: crackles 04/21/2015 None Full Exam - General 1994 Constitutional general appearance Overall: well developed 04/15/2015 None Full Exam - General 1994 Constitutional general appearance Overall: well nourished 04/15/2015 None Full Exam - General 1994 Eyes pupils and irises Overall: pupils equal, round, reactive to light and accomodation 04/15/2015 None Full Exam - General 1994 Ears/Nose/Throat otoscopic exam Overall: external auditory canals clear 04/15/2015 None Full Exam - General 1994 Ears/Nose/Throat otoscopic exam Overall: tympanic membranes clear 04/15/2015 None Full Exam - General 1994 Respiratory respiratory effort/rhythm Overall: no retractions 04/15/2015 None Full Exam - General 1994 Respiratory respiratory effort/rhythm Overall: normal rate 04/15/2015 None Full Exam - General 1994 Cardiovascular extremities Overall: no clubbing 04/15/2015 None Full Exam - General 1994 Cardiovascular auscultation of heart Overall: regular rate 04/15/2015 None Full Exam - General 1994 Cardiovascular auscultation of heart Overall: normal heart sounds 04/15/2015 None Full Exam - General 1994 Cardiovascular auscultation of heart Overall: no murmurs 04/15/2015 None Full Exam - General 1994 Abdomen abdominal exam Overall: no tenderness 04/15/2015 None Full Exam - General 1994 Abdomen abdominal exam Overall: normal bowel sounds 04/15/2015 None Full Exam - General 1994 Lymphatic neck nodes Overall: anterior cervical chain benign 04/15/2015 None Full Exam - General 1994 Lymphatic neck nodes Overall: posterior cervical chain benign 04/15/2015 None Full Exam - General 1994 Musculoskeletal head and neck Overall: head atraumatic 04/15/2015 None Full Exam - General 1994 Musculoskeletal head and neck Overall: cervical spine benign 04/15/2015 None Full Exam - General 1994 Integument inspection of skin Overall: few scattered moles, no gross abnormalities 04/15/2015 None Full Exam - General 1994 Psychiatric mood and affect Overall: normal mood and affect 04/15/2015 None Full Exam - General 1994 Constitutional general appearance Overall: in no acute distress 04/15/2015 None Full Exam - General 1994 Ears/Nose/Throat internal nose Sinus tenderness: left maxillary 04/15/2015 None Full Exam - General 1994 Ears/Nose/Throat internal nose Sinus tenderness: right maxillary 04/15/2015 None Full Exam - General 1994 Ears/Nose/Throat oral cavity/pharynx/larynx Overall: oral mucosa clear 04/15/2015 None Full Exam - General 1994 Ears/Nose/Throat oral cavity/pharynx/larynx Overall: oropharyngeal mucosa clear 04/15/2015 None Full Exam - General 1994 Ears/Nose/Throat oral cavity/pharynx/larynx Overall: no masses 04/15/2015 None Full Exam - General 1994 Respiratory auscultation Overall: breath sounds clear bilaterally 04/15/2015 None Full Exam - General 1994 Neurologic cranial nerves Overall: crainial nerves 2 - 12 grossly intact 04/15/2015 None Full Exam - General 1994 Psychiatric orientation/consciousness Overall: oriented to person, place and time 04/15/2015 None Full Exam - General 1994 Respiratory auscultation Right lower lung field: expiratory wheezes 04/15/2015 None Full Exam - General 1994 Constitutional general appearance Overall: well nourished 03/11/2015 None Full Exam - General 1994 Constitutional general appearance Overall: well developed 03/11/2015 None Full Exam - General 1994 Constitutional general appearance Overall: in no acute distress 03/11/2015 None Full Exam - General 1994 Eyes pupils and irises Overall: pupils equal, round, reactive to light and accomodation 03/11/2015 None Full Exam - General 1994 Ears/Nose/Throat otoscopic exam Overall: external auditory canals clear 03/11/2015 None Full Exam - General 1994 Ears/Nose/Throat otoscopic exam Overall: tympanic membranes clear 03/11/2015 None Full Exam - General 1994 Ears/Nose/Throat oral cavity/pharynx/larynx Overall: no masses 03/11/2015 None Full Exam - General 1994 Respiratory auscultation Overall: breath sounds clear bilaterally 03/11/2015 None Full Exam - General 1994 Cardiovascular extremities Overall: no clubbing 03/11/2015 None Full Exam - General 1994 Cardiovascular auscultation of heart Overall: regular rate 03/11/2015 None Full Exam - General 1994 Cardiovascular auscultation of heart Overall: normal heart sounds 03/11/2015 None Full Exam - General 1994 Cardiovascular auscultation of heart Overall: no murmurs 03/11/2015 None Full Exam - General 1994 Psychiatric mood and affect Overall: normal mood and affect 03/11/2015 None Full Exam - General 1994 Psychiatric mood and affect Mood: happy 03/11/2015 None Full Exam - General 1994 Eyes conjunctiva /eyelids Overall: conjunctiva clear 03/11/2015 None Full Exam - General 1994 Eyes conjunctiva /eyelids Overall: eyelids normal 03/11/2015 None Full Exam - General 1994 Eyes conjunctiva /eyelids Overall: cornea clear 03/11/2015 None Full Exam - General 1994 Eyes conjunctiva /eyelids Conjunctiva: erythema 03/11/2015 MILD Full Exam - General 1994 Respiratory respiratory effort/rhythm Overall: normal rate 03/11/2015 None Full Exam - General 1994 Respiratory respiratory effort/rhythm Overall: no retractions 03/11/2015 None Full Exam - General 1994 Ears/Nose/Throat oral cavity/pharynx/larynx Oropharynx: erythema 03/11/2015 None Full Exam - General 1994 Ears/Nose/Throat oral cavity/pharynx/larynx Overall: oral mucosa clear 03/11/2015 None Full Exam - General 1994 Ears/Nose/Throat external ear Overall: no masses 03/11/2015 None Full Exam - General 1994 Ears/Nose/Throat external ear Overall: normal appearance 03/11/2015 None Full Exam - General 1994 Ears/Nose/Throat external ear Overall: normal mastoids 03/11/2015 None Full Exam - General 1994 Ears/Nose/Throat external nose Overall: benign appearance 03/11/2015 None Full Exam - General 1994 Ears/Nose/Throat external nose Overall: non-tender 03/11/2015 None Full Exam - General 1994 Ears/Nose/Throat external nose Overall: no masses 03/11/2015 None Full Exam - General 1994 Ears/Nose/Throat lips/teeth/gingiva Overall: benign gingiva 03/11/2015 None Full Exam - General 1994 Ears/Nose/Throat lips/teeth/gingiva Overall: no masses 03/11/2015 None Full Exam - General 1994 Ears/Nose/Throat lips/teeth/gingiva Overall: normal dentition 03/11/2015 None Full Exam - General 1994 Ears/Nose/Throat lips/teeth/gingiva Overall: benign lips 03/11/2015 None Full Exam - General 1994 Ears/Nose/Throat internal nose Sinus tenderness: right maxillary 03/11/2015 None Full Exam - General 1994 Ears/Nose/Throat internal nose Sinus tenderness: left maxillary 03/11/2015 None Full Exam - General 1994 Ears/Nose/Throat internal nose Drainage: thick 03/11/2015 GREEN Full Exam - General 1994 Integument inspection of skin Overall: no rash, lesions 03/11/2015 None Full Exam - General 1994 Lymphatic neck nodes Overall: anterior cervical chain benign 03/11/2015 None Full Exam - General 1994 Lymphatic neck nodes Overall: posterior cervical chain benign 03/11/2015 None Full Exam - General 1994 Musculoskeletal gait and station Overall: normal station 03/11/2015 None Full Exam - General 1994 Musculoskeletal gait and station Overall: normal gait 03/11/2015 None Full Exam - General 1994 Ears/Nose/Throat oral cavity/pharynx/larynx Submandibular gland: nontender 03/11/2015 None Full Exam - General 1994 Constitutional general appearance Overall: well developed 09/03/2014 None Full Exam - General 1994 Constitutional general appearance Overall: in no acute distress 09/03/2014 None Full Exam - General 1994 Constitutional general appearance Overall: well nourished 09/03/2014 None Full Exam - General 1994 Eyes pupils and irises Overall: pupils equal, round, reactive to light and accomodation 09/03/2014 None Full Exam - General 1994 Ears/Nose/Throat otoscopic exam Overall: external auditory canals clear 09/03/2014 None Full Exam - General 1994 Ears/Nose/Throat otoscopic exam Overall: tympanic membranes clear 09/03/2014 None Full Exam - General 1994 Ears/Nose/Throat oral cavity/pharynx/larynx Overall: oral mucosa clear 09/03/2014 None Full Exam - General 1994 Ears/Nose/Throat oral cavity/pharynx/larynx Overall: oropharyngeal mucosa clear 09/03/2014 None Full Exam - General 1994 Ears/Nose/Throat oral cavity/pharynx/larynx Overall: no masses 09/03/2014 None Full Exam - General 1994 Respiratory auscultation Overall: breath sounds clear bilaterally 09/03/2014 None Full Exam - General 1994 Cardiovascular extremities Overall: no clubbing 09/03/2014 None Full Exam - General 1994 Cardiovascular auscultation of heart Overall: regular rate 09/03/2014 None Full Exam - General 1994 Cardiovascular auscultation of heart Overall: normal heart sounds 09/03/2014 None Full Exam - General 1994 Cardiovascular auscultation of heart Overall: no murmurs 09/03/2014 None Full Exam - General 1994 Psychiatric mood and affect Overall: normal mood and affect 09/03/2014 None Full Exam - General 1994 Psychiatric mood and affect Mood: happy 09/03/2014 None Full Exam - General 1994 Constitutional general appearance Overall: well nourished 05/27/2014 None Full Exam - General 1994 Constitutional general appearance Overall: well developed 05/27/2014 None Full Exam - General 1994 Constitutional general appearance Overall: in no acute distress 05/27/2014 None Full Exam - General 1994 Eyes conjunctiva /eyelids Overall: conjunctiva clear 05/27/2014 None Full Exam - General 1994 Eyes conjunctiva /eyelids Overall: eyelids normal 05/27/2014 pupils dilated from recent eye exam at Dr. Ford's office Full Exam - General 1994 Ears/Nose/Throat otoscopic exam Overall: tympanic membranes clear 05/27/2014 None Full Exam - General 1994 Ears/Nose/Throat otoscopic exam Overall: external auditory canals clear 05/27/2014 None Full Exam - General 1994 Ears/Nose/Throat oral cavity/pharynx/larynx Overall: oropharyngeal mucosa clear 05/27/2014 None Full Exam - General 1994 Ears/Nose/Throat oral cavity/pharynx/larynx Overall: no masses 05/27/2014 None Full Exam - General 1994 Ears/Nose/Throat oral cavity/pharynx/larynx Overall: oral mucosa clear 05/27/2014 None Full Exam - General 1994 Psychiatric orientation/consciousness Overall: oriented to person, place and time 05/27/2014 None Full Exam - General 1994 Cardiovascular auscultation of heart Overall: regular rate 05/27/2014 None Full Exam - General 1994 Cardiovascular auscultation of heart Overall: normal heart sounds 05/27/2014 None Full Exam - General 1994 Cardiovascular auscultation of heart Overall: no murmurs 05/27/2014 None Full Exam - General 1994 Cardiovascular extremities Overall: no clubbing 05/27/2014 None Full Exam - General 1994 Respiratory respiratory effort/rhythm Overall: normal rate 05/27/2014 None Full Exam - General 1994 Respiratory respiratory effort/rhythm Overall: no retractions 05/27/2014 None Full Exam - General 1994 Respiratory auscultation Overall: breath sounds clear bilaterally 05/27/2014 None Full Exam - General 1994 Lymphatic neck nodes Overall: anterior cervical chain benign 05/27/2014 None Full Exam - General 1994 Lymphatic neck nodes Overall: posterior cervical chain benign 05/27/2014 None Full Exam - General 1994 Musculoskeletal head and neck Overall: cervical spine benign 05/27/2014 None Full Exam - General 1994 Musculoskeletal head and neck Overall: head atraumatic 05/27/2014 None Full Exam - General 1994 Musculoskeletal gait and station Overall: normal station 05/27/2014 None Full Exam - General 1994 Musculoskeletal gait and station Overall: normal gait 05/27/2014 None Full Exam - General 1994 Musculoskeletal spine, ribs and pelvis Overall: good posture 05/27/2014 None Full Exam - General 1994 Musculoskeletal spine, ribs and pelvis Overall: sacroiliac joint benign 05/27/2014 None Full Exam - General 1994 Musculoskeletal spine, ribs and pelvis Overall: spine benign 05/27/2014 None Full Exam - General 1994 Neurologic deep tendon reflexes Overall: deep tendon reflexes intact 05/27/2014 None Full Exam - General 1994 Neurologic gait Overall: no ataxia, no unsteadiness 05/27/2014 None Full Exam - General 1994 Neurologic cranial nerves Overall: crainial nerves 2 - 12 grossly intact 05/27/2014 None Full Exam - General 1994 Neurologic coordination Overall: no tremors 05/27/2014 None Full Exam - General 1994 Neurologic coordination Overall: no dysdiadochokinesis, no dysmetria 05/27/2014 None Full Exam - General 1994 Neurologic motor Overall: normal bulk, tone 05/27/2014 None Full Exam - General 1994 Constitutional general appearance Overall: well developed 04/30/2014 None Full Exam - General 1994 Constitutional general appearance Overall: in no acute distress 04/30/2014 None Full Exam - General 1994 Constitutional general appearance Overall: well nourished 04/30/2014 None Full Exam - General 1994 Eyes pupils and irises Overall: pupils equal, round, reactive to light and accomodation 04/30/2014 None Full Exam - General 1994 Ears/Nose/Throat otoscopic exam Overall: external auditory canals clear 04/30/2014 None Full Exam - General 1994 Ears/Nose/Throat otoscopic exam Overall: tympanic membranes clear 04/30/2014 None Full Exam - General 1994 Ears/Nose/Throat oral cavity/pharynx/larynx Overall: oral mucosa clear 04/30/2014 None Full Exam - General 1994 Ears/Nose/Throat oral cavity/pharynx/larynx Overall: oropharyngeal mucosa clear 04/30/2014 None Full Exam - General 1994 Ears/Nose/Throat oral cavity/pharynx/larynx Overall: no masses 04/30/2014 None Full Exam - General 1994 Respiratory auscultation Overall: breath sounds clear bilaterally 04/30/2014 None Full Exam - General 1994 Cardiovascular extremities Overall: no clubbing 04/30/2014 None Full Exam - General 1994 Cardiovascular auscultation of heart Overall: regular rate 04/30/2014 None Full Exam - General 1994 Cardiovascular auscultation of heart Overall: normal heart sounds 04/30/2014 None Full Exam - General 1994 Cardiovascular auscultation of heart Overall: no murmurs 04/30/2014 None Full Exam - General 1994 Psychiatric mood and affect Overall: normal mood and affect 04/30/2014 None Full Exam - General 1994 Psychiatric mood and affect Mood: happy 04/30/2014 None Full Exam - General 1994 Abdomen abdominal exam Overall: no tenderness 04/30/2014 None Full Exam - General 1994 Abdomen abdominal exam Overall: normal bowel sounds 04/30/2014 None Full Exam - General 1994 Musculoskeletal head and neck Overall: cervical spine benign 04/30/2014 None Full Exam - General 1994 Musculoskeletal head and neck Overall: head atraumatic 04/30/2014 None Full Exam - General 1994 Constitutional general appearance Overall: well developed 04/04/2014 None Full Exam - General 1994 Constitutional general appearance Overall: in no acute distress 04/04/2014 None Full Exam - General 1994 Constitutional general appearance Overall: well nourished 04/04/2014 None Full Exam - General 1994 Eyes pupils and irises Overall: pupils equal, round, reactive to light and accomodation 04/04/2014 None Full Exam - General 1994 Ears/Nose/Throat otoscopic exam Overall: external auditory canals clear 04/04/2014 None Full Exam - General 1994 Ears/Nose/Throat otoscopic exam Overall: tympanic membranes clear 04/04/2014 None Full Exam - General 1994 Ears/Nose/Throat oral cavity/pharynx/larynx Overall: oral mucosa clear 04/04/2014 None Full Exam - General 1994 Ears/Nose/Throat oral cavity/pharynx/larynx Overall: oropharyngeal mucosa clear 04/04/2014 None Full Exam - General 1994 Ears/Nose/Throat oral cavity/pharynx/larynx Overall: no masses 04/04/2014 None Full Exam - General 1994 Respiratory auscultation Overall: breath sounds clear bilaterally 04/04/2014 None Full Exam - General 1994 Cardiovascular extremities Overall: no clubbing 04/04/2014 None Full Exam - General 1994 Cardiovascular auscultation of heart Overall: regular rate 04/04/2014 None Full Exam - General 1994 Cardiovascular auscultation of heart Overall: normal heart sounds 04/04/2014 None Full Exam - General 1994 Cardiovascular auscultation of heart Overall: no murmurs 04/04/2014 None Full Exam - General 1994 Psychiatric mood and affect Overall: normal mood and affect 04/04/2014 None Full Exam - General 1994 Psychiatric mood and affect Mood: happy 04/04/2014 None Full Exam - General 1994 Constitutional general appearance Overall: well developed 12/04/2013 None Full Exam - General 1994 Constitutional general appearance Overall: in no acute distress 12/04/2013 None Full Exam - General 1994 Constitutional general appearance Overall: well nourished 12/04/2013 None Full Exam - General 1994 Eyes pupils and irises Overall: pupils equal, round, reactive to light and accomodation 12/04/2013 None Full Exam - General 1994 Ears/Nose/Throat oral cavity/pharynx/larynx Overall: oral mucosa clear 12/04/2013 None Full Exam - General 1994 Ears/Nose/Throat oral cavity/pharynx/larynx Overall: oropharyngeal mucosa clear 12/04/2013 None Full Exam - General 1994 Ears/Nose/Throat oral cavity/pharynx/larynx Overall: no masses 12/04/2013 None Full Exam - General 1994 Respiratory auscultation Overall: breath sounds clear bilaterally 12/04/2013 None Full Exam - General 1994 Cardiovascular extremities Overall: no clubbing 12/04/2013 None Full Exam - General 1994 Cardiovascular auscultation of heart Overall: regular rate 12/04/2013 None Full Exam - General 1994 Cardiovascular auscultation of heart Overall: normal heart sounds 12/04/2013 None Full Exam - General 1994 Cardiovascular auscultation of heart Overall: no murmurs 12/04/2013 None Full Exam - General 1994 Abdomen abdominal exam Bowel sounds: a normal exam 12/04/2013 None Full Exam - General 1994 Abdomen abdominal exam Lower quadrant: tender to palpation 12/04/2013 None Full Exam - General 1994 Psychiatric mood and affect Overall: normal mood and affect 12/04/2013 None Full Exam - General 1994 Psychiatric mood and affect Mood: happy 12/04/2013 None Full Exam - General 1994 Constitutional general appearance Overall: well developed 10/25/2013 None Full Exam - General 1994 Constitutional general appearance Overall: in no acute distress 10/25/2013 None Full Exam - General 1994 Constitutional general appearance Overall: well nourished 10/25/2013 None Full Exam - General 1994 Eyes pupils and irises Overall: pupils equal, round, reactive to light and accomodation 10/25/2013 None Full Exam - General 1994 Ears/Nose/Throat otoscopic exam Overall: external auditory canals clear 10/25/2013 None Full Exam - General 1994 Ears/Nose/Throat otoscopic exam Overall: tympanic membranes clear 10/25/2013 None Full Exam - General 1994 Ears/Nose/Throat oral cavity/pharynx/larynx Overall: oral mucosa clear 10/25/2013 None Full Exam - General 1994 Ears/Nose/Throat oral cavity/pharynx/larynx Overall: oropharyngeal mucosa clear 10/25/2013 None Full Exam - General 1994 Ears/Nose/Throat oral cavity/pharynx/larynx Overall: no masses 10/25/2013 None Full Exam - General 1994 Respiratory auscultation Overall: breath sounds clear bilaterally 10/25/2013 None Full Exam - General 1994 Cardiovascular extremities Overall: no clubbing 10/25/2013 None Full Exam - General 1994 Cardiovascular auscultation of heart Overall: regular rate 10/25/2013 None Full Exam - General 1994 Cardiovascular auscultation of heart Overall: normal heart sounds 10/25/2013 None Full Exam - General 1994 Cardiovascular auscultation of heart Overall: no murmurs 10/25/2013 None Full Exam - General 1994 Psychiatric mood and affect Overall: normal mood and affect 10/25/2013 None Full Exam - General 1994 Psychiatric mood and affect Mood: happy 10/25/2013 None Full Exam - General 1994 Abdomen abdominal exam Bowel sounds: a normal exam 10/25/2013 None Full Exam - General 1994 Abdomen abdominal exam Upper quadrant: tender to palpation 10/25/2013 None Full Exam - General 1994 Abdomen abdominal exam Lower quadrant: tender to palpation 10/25/2013 None Full Exam - General 1994 Constitutional general appearance Overall: well developed 10/16/2013 None Full Exam - General 1994 Constitutional general appearance Overall: in no acute distress 10/16/2013 None Full Exam - General 1994 Constitutional general appearance Overall: well nourished 10/16/2013 None Full Exam - General 1994 Eyes pupils and irises Overall: pupils equal, round, reactive to light and accomodation 10/16/2013 None Full Exam - General 1994 Ears/Nose/Throat otoscopic exam Overall: external auditory canals clear 10/16/2013 None Full Exam - General 1994 Ears/Nose/Throat otoscopic exam Overall: tympanic membranes clear 10/16/2013 None Full Exam - General 1994 Ears/Nose/Throat oral cavity/pharynx/larynx Overall: oral mucosa clear 10/16/2013 None Full Exam - General 1994 Ears/Nose/Throat oral cavity/pharynx/larynx Overall: oropharyngeal mucosa clear 10/16/2013 None Full Exam - General 1994 Ears/Nose/Throat oral cavity/pharynx/larynx Overall: no masses 10/16/2013 None Full Exam - General 1994 Respiratory auscultation Overall: breath sounds clear bilaterally 10/16/2013 None Full Exam - General 1994 Cardiovascular extremities Overall: no clubbing 10/16/2013 None Full Exam - General 1994 Cardiovascular auscultation of heart Overall: regular rate 10/16/2013 None Full Exam - General 1994 Cardiovascular auscultation of heart Overall: normal heart sounds 10/16/2013 None Full Exam - General 1994 Cardiovascular auscultation of heart Overall: no murmurs 10/16/2013 None Full Exam - General 1994 Psychiatric mood and affect Overall: normal mood and affect 10/16/2013 None Full Exam - General 1994 Psychiatric mood and affect Mood: happy 10/16/2013 None Full Exam - General 1994 Constitutional general appearance Overall: well developed 07/30/2013 None Full Exam - General 1994 Constitutional general appearance Overall: in no acute distress 07/30/2013 None Full Exam - General 1994 Constitutional general appearance Overall: well nourished 07/30/2013 None Full Exam - General 1994 Eyes pupils and irises Overall: pupils equal, round, reactive to light and accomodation 07/30/2013 None Full Exam - General 1994 Ears/Nose/Throat otoscopic exam Overall: external auditory canals clear 07/30/2013 None Full Exam - General 1994 Ears/Nose/Throat otoscopic exam Overall: tympanic membranes clear 07/30/2013 None Full Exam - General 1994 Ears/Nose/Throat oral cavity/pharynx/larynx Overall: oral mucosa clear 07/30/2013 None Full Exam - General 1994 Ears/Nose/Throat oral cavity/pharynx/larynx Overall: oropharyngeal mucosa clear 07/30/2013 None Full Exam - General 1994 Ears/Nose/Throat oral cavity/pharynx/larynx Overall: no masses 07/30/2013 None Full Exam - General 1994 Psychiatric mood and affect Mood: happy 07/30/2013 None Full Exam - General 1994 Psychiatric mood and affect Overall: normal mood and affect 07/30/2013 None Full Exam - General 1994 Respiratory auscultation Overall: breath sounds clear bilaterally 07/30/2013 None Full Exam - General 1994 Cardiovascular extremities Overall: no clubbing 07/30/2013 None Full Exam - General 1994 Cardiovascular auscultation of heart Overall: regular rate 07/30/2013 None Full Exam - General 1994 Cardiovascular auscultation of heart Overall: normal heart sounds 07/30/2013 None Full Exam - General 1994 Cardiovascular auscultation of heart Overall: no murmurs 07/30/2013 None Full Exam - Genitourinary/Female Constitutional general appearance Overall: well nourished 10/26/2012 None Full Exam - Genitourinary/Female Constitutional general appearance Overall: well developed 10/26/2012 None Full Exam - Genitourinary/Female Constitutional general appearance Overall: in no acute distress 10/26/2012 None Full Exam - Genitourinary/Female Eyes conjunctiva/eyelids Overall: conjunctiva clear 10/26/2012 None Full Exam - Genitourinary/Female Eyes pupils and irises Overall: pupils equal, round, reactive to light and accomodation 10/26/2012 None Full Exam - Genitourinary/Female Ears/Nose/Throat otoscopic exam Overall: external auditory canals clear 10/26/2012 None Full Exam - Genitourinary/Female Ears/Nose/Throat otoscopic exam Overall: tympanic membranes clear 10/26/2012 None Full Exam - Genitourinary/Female Ears/Nose/Throat oral cavity/pharynx/larynx Overall: oral mucosa clear 10/26/2012 None Full Exam - Genitourinary/Female Respiratory auscultation Overall: breath sounds clear bilaterally 10/26/2012 None Full Exam - Genitourinary/Female Respiratory respiratory effort/rhythm Overall: no retractions 10/26/2012 None Full Exam - Genitourinary/Female Respiratory respiratory effort/rhythm Overall: normal rate 10/26/2012 None Full Exam - Genitourinary/Female Cardiovascular auscultation of heart Overall: regular rate 10/26/2012 None Full Exam - Genitourinary/Female Cardiovascular auscultation of heart Overall: normal heart sounds 10/26/2012 None Full Exam - Genitourinary/Female Cardiovascular examination of vasculature Overall: no clubbing, cyanosis, edema 10/26/2012 None Full Exam - Genitourinary/Female Abdomen abdominal exam Overall: non tender, non distended 10/26/2012 None Full Exam - Genitourinary/Female Abdomen abdominal exam Overall: normal bowel sounds 10/26/2012 None Full Exam - Genitourinary/Female Abdomen abdominal exam Overall: no mass lesions 10/26/2012 None Full Exam - Genitourinary/Female Genitourinary breast inspection & palpation Overall: breasts symmetric and without lesions 10/26/2012 None Full Exam - Genitourinary/Female Genitourinary breast inspection & palpation Overall: breasts non-tender, no mass lesions 10/26/2012 None Full Exam - Genitourinary/Female Genitourinary breast inspection & palpation Overall: no nipple discharge 10/26/2012 None Full Exam - Genitourinary/Female Genitourinary external genitalia Overall: no discharge 10/26/2012 None Full Exam - Genitourinary/Female Genitourinary external genitalia Overall: no lesions 10/26/2012 None Full Exam - Genitourinary/Female Genitourinary urethral meatus Overall: normal size and location 10/26/2012 None Full Exam - Genitourinary/Female Genitourinary bladder Palpation: non-tender 10/26/2012 None Full Exam - Genitourinary/Female Genitourinary bladder Palpation: no masses 10/26/2012 None Full Exam - Genitourinary/Female Genitourinary vagina Overall: no discharge 10/26/2012 None Full Exam - Genitourinary/Female Genitourinary vagina Overall: no lesions 10/26/2012 None Full Exam - Genitourinary/Female Genitourinary vagina Overall: normal tone 10/26/2012 None Full Exam - Genitourinary/Female Genitourinary vagina Overall: normal pelvic support 10/26/2012 None Full Exam - Genitourinary/Female Genitourinary vagina Introitus: normal appearance 10/26/2012 None Full Exam - Genitourinary/Female Genitourinary vagina Vaginal discharge: absent 10/26/2012 None Full Exam - Genitourinary/Female Genitourinary vagina Vagina: no lesions present 10/26/2012 None Full Exam - Genitourinary/Female Genitourinary vagina Vaginal tone: a normal exam 10/26/2012 None Full Exam - Genitourinary/Female Genitourinary cervix Inspection: normal os 10/26/2012 None Full Exam - Genitourinary/Female Genitourinary uterus Overall: normal size 10/26/2012 None Full Exam - Genitourinary/Female Genitourinary uterus Overall: non tender 10/26/2012 None Full Exam - Genitourinary/Female Lymphatic inspection and palpation of nodes Overall: anterior cervical chain benign 10/26/2012 None Full Exam - Genitourinary/Female Lymphatic inspection and palpation of nodes Overall: posterior cervical chain benign 10/26/2012 None Full Exam - Genitourinary/Female Musculoskeletal head and neck Overall: head atraumatic 10/26/2012 None Full Exam - Genitourinary/Female Musculoskeletal gait and station Overall: normal gait 10/26/2012 None Full Exam - Genitourinary/Female Musculoskeletal gait and station Overall: normal station 10/26/2012 None Full Exam - Genitourinary/Female Integument inspection and palpation of skin Overall: no rash, lesions 10/26/2012 None Full Exam - Genitourinary/Female Neurologic mood and affect Overall: normal mood 10/26/2012 None Full Exam - Genitourinary/Female Neurologic mood and affect Overall: normal affect 10/26/2012 None Full Exam - Genitourinary/Female Neurologic orientation Overall: oriented to person, place and time 10/26/2012 None Full Exam - Genitourinary/Female Psychiatric orientation/consciousness Overall: oriented to person, place and time 10/26/2012 None Full Exam - General 1995 Psychiatric mood and affect Mood: happy 10/03/2012 None Full Exam - General 1994 Psychiatric mood and affect Overall: normal mood and affect 10/03/2012 None Full Exam - General 1995 Psychiatric orientation/consciousness Overall: oriented to person, place and time 10/03/2012 None Full Exam - General 1994 Neurologic cranial nerves Overall: crainial nerves 2 - 12 grossly intact 10/03/2012 None Full Exam - General 1994 Neurologic deep tendon reflexes Overall: deep tendon reflexes intact 10/03/2012 None Full Exam - General 1994 Integument inspection of skin Overall: no rash, lesions 10/03/2012 None Full Exam - General 1994 Musculoskeletal head and neck Overall: cervical spine benign 10/03/2012 None Full Exam - General 1994 Neck thyroid Overall: normal consistency 10/03/2012 None Full Exam - General 1995 Ears/Nose/Throat oral cavity/pharynx/larynx Overall: oropharyngeal mucosa clear 10/03/2012 None Full Exam - General 1995 Ears/Nose/Throat oral cavity/pharynx/larynx Overall: no masses 10/03/2012 None Full Exam - General 1995 Ears/Nose/Throat oral cavity/pharynx/larynx Overall: oral mucosa clear 10/03/2012 None Full Exam - General 1994 Ears/Nose/Throat otoscopic exam Overall: tympanic membranes clear 10/03/2012 None Full Exam - General 1994 Ears/Nose/Throat otoscopic exam Overall: external auditory canals clear 10/03/2012 None Full Exam - General 1994 Eyes pupils and irises Overall: pupils equal, round, reactive to light and accomodation 10/03/2012 None Full Exam - General 1994 Constitutional general appearance Overall: well nourished 10/03/2012 None Full Exam - General 1994 Constitutional general appearance Overall: well developed 10/03/2012 None Full Exam - General 1994 Constitutional general appearance Overall: in no acute distress 10/03/2012 None Full Exam - General 1994 Abdomen abdominal exam Upper quadrant: non-tender to palpation 10/03/2012 None Full Exam - General 1994 Abdomen abdominal exam Lower quadrant: dull pain 10/03/2012 None Full Exam - General 1994 Abdomen abdominal exam Lower quadrant: no guarding 10/03/2012 None Full Exam - General 1994 Abdomen abdominal exam Lower quadrant: non-tender to palpation 10/03/2012 None Full Exam - General 1994 Musculoskeletal head and neck Overall: head atraumatic 10/03/2012 None Full Exam - General 1994 Musculoskeletal gait and station Overall: normal station 10/03/2012 None Full Exam - General 1994 Musculoskeletal gait and station Overall: normal gait 10/03/2012 None Full Exam - General 1994 Abdomen abdominal exam Overall: normal bowel sounds 10/03/2012 None Full Exam - General 1994 Abdomen liver and spleen exam Overall: no hepatosplenomegaly 10/03/2012 None Full Exam - General 1994 Abdomen liver and spleen exam Overall: no stigmata of chronic liver disease 10/03/2012 None Full Exam - General 1994 Cardiovascular auscultation of heart Overall: regular rate 10/03/2012 None Full Exam - General 1994 Cardiovascular auscultation of heart Overall: normal heart sounds 10/03/2012 None Full Exam - General 1994 Cardiovascular auscultation of heart Overall: no murmurs 10/03/2012 None Full Exam - General 1994 Cardiovascular extremities Overall: no clubbing 10/03/2012 None Full Exam - General 1994 Respiratory auscultation Overall: breath sounds clear bilaterally 10/03/2012 None Full Exam - General 1994 Neck thyroid Overall: nontender 2012 None Full Exam - General 1994 Neck thyroid Overall: normal size None Full Exam - General 1994 Neck thyroid Overall: no mass lesions 10/03/2012 None Procedures Procedure Codes Date TRIAMCINOLONE ACET INJ NOS CPT-4: J3301 07/09/2016 TRIAMCINOLONE ACET INJ NOS CPT-4: J3301 11/26/2015 TRIAMCINOLONE ACET INJ NOS CPT-4: J3301 06/25/2015 TRIAMCINOLONE ACET INJ NOS CPT-4: J3301 03/11/2015 TRIAMCINOLONE ACET INJ NOS CPT-4: J3301 09/03/2014 THER/PROPH/DIAG INJ SC/IM CPT-4: 17028 04/04/2014 TRIAMCINOLONE ACET INJ NOS CPT-4: J3301 04/04/2014 C URINE RT (URINE CULTURE/COLONY COUNT) CPT-4: 45753 10/16/2013 URINALYSIS NONAUTO W/O SCOPE CPT-4: 86321 10/16/2013 PREV VISIT EST AGE 40-64 CPT-4: 54594 10/26/2012 Vital Signs Date Vital 11/25/2016 Blood Pressure 1: 134/94 Code : 8480-6 BMI: 37.5 Code : 41139-7 Heart Rate 1 : 78 bpm Height: 5'8" SpO2: 95% Weight: 250 lbs 07/09/2016 Blood Pressure 1: 138/90 Code : 8480-6 BMI: 37.9 Code : 73582-3 Heart Rate 1 : 84 bpm Height: 5'8" SpO2: 98% Weight: 253 lbs 01/26/2016 Blood Pressure 1: 138/88 Code : 8480-6 BMI: 37.8 Code : 52918-9 Heart Rate 1 : 72 bpm Height: 5'8" SpO2: 97% Weight: 252 lbs 12/12/2015 Blood Pressure 1: 124/80 Code : 8480-6 BMI: 37.8 Code : 20270-4 Heart Rate 1 : 99 bpm Height: 5'8" SpO2: 97% Weight: 252 lbs 11/26/2015 Blood Pressure 1: 164/100 Code: 8480-6 Blood Pressure 1: 128/82 Code: 8480-6 BMI: 38.8 Code: 23814-7 Heart Rate 1: 84 bpm Height: 5'8" SpO2: 97% Weight: 259 lbs 06/25/2015 Blood Pressure 1: 120/84 Code : 8480-6 BMI: 38.1 Code : 87278-3 Heart Rate 1 : 88 bpm Height: 5'8" SpO2: 97% Weight: 254 lbs 05/02/2015 Blood Pressure 1: 124/90 Code : 8480-6 Heart Rate 1: 98 bpm Height: SpO2: 97% Temperature: 36.8 (C) / 98.2 (F) Weight: 04/21/2015 Blood Pressure 1: 108/68 Code : 8480-6 BMI: 36.6 Code : 55085-9 Heart Rate 1 : 103 bpm Height: 5'8" SpO2: 87% Temperature: 37.5 (C) / 99.5 (F) Weight: 244 lbs 04/15/2015 Blood Pressure 1: 146/100 Code: 8480-6 BMI: 37.5 Code: 93410-5 Heart Rate 1: 96 bpm Height: 5'8" Weight: 250 lbs 03/11/2015 Blood Pressure 1: 126/78 Code : 8480-6 BMI: 37.8 Code : 61961-7 Heart Rate 1 : 68 bpm Height: 5'8" Respiratory Rate: 18 bpm SpO2: 97% Temperature: 36.7 (C) / 98.0 (F ) Weight: 252 lbs 09/03/2014 Blood Pressure 1: 130/92 Code : 8480-6 BMI: 37.6 Code : 02307-6 Heart Rate 1 : 84 bpm Height: 5'8" Temperature: 37.1 (C) / 98.7 (F) Weight: 251 lbs 05/27/2014 Blood Pressure 1: 128/80 Code : 8480-6 BMI: 37.3 Code : 52358-0 Heart Rate 1 : 84 bpm Height: 5'8" Weight: 249 lbs 04/30/2014 Blood Pressure 1: 130/78 Code : 8480-6 BMI: 37.3 Code : 02392-9 Heart Rate 1 : 88 bpm Height: 5'8" Weight: 249 lbs 04/04/2014 Blood Pressure 1: 122/76 Code : 8480-6 BMI: 37.6 Code : 36241-3 Heart Rate 1 : 72 bpm Height: 5'8" Temperature: 36.7 (C) / 98.1 (F) Weight: 251 lbs 12/04/2013 Blood Pressure 1: 132/88 Code : 8480-6 BMI: 38.4 Code : 73611-5 Heart Rate 1 : 81 bpm Height: 5'8" SpO2: 98% Weight: 256 lbs 10/25/2013 Blood Pressure 1: 122/76 Code : 8480-6 BMI: 37.8 Code : 32827-1 Heart Rate 1 : 88 bpm Height: 5'8" SpO2: 96% Weight: 252 lbs 10/16/2013 Blood Pressure 1: 124/88 Code : 8480-6 BMI: 38.5 Code : 42356-5 Heart Rate 1 : 84 bpm Height: 5'8" Weight: 257 lbs 07/30/2013 Blood Pressure 1: 130/80 Code : 8480-6 BMI: 39.0 Code : 01896-3 Heart Rate 1 : 88 bpm Height: 5'8" Weight: 260 lbs 10/26/2012 Blood Pressure 1: 112/84 Code : 8480-6 BMI: 37.2 Code : 47116-0 Heart Rate 1 : 80 bpm Height: 5'8" Weight: 248 lbs 10/03/2012 Blood Pressure 1: 136/94 Code : 8480-6 BMI: 37.3 Code : 84148-4 Heart Rate 1 : 76 bpm Height: 5'8" Weight: 249 lbs Functional Status No Functional Status data History of Present Illness Symptom Name Status Result Effective Date Notes vaginal bleeding Quality acute 11/25/2016 None vaginal bleeding Quality red 11/25/2016 None vaginal bleeding Quality small 11/25/2016 None vaginal bleeding Onset and Resolution sudden in onset 11/25/2016 None vaginal bleeding Onset of Symptom 1 days ago 11/25/2016 None vaginal bleeding Severity mild 11/25/2016 None vaginal bleeding Timing of Episodes in the morning 11/25/2016 None vaginal bleeding Triggers no known associated factors 11/25/2016 None chest tightness Quality acute 11/25/2016 heaviness chest tightness Onset and Resolution sudden in onset 11/25/2016 None chest tightness Pertinent Findings cough 11/25/2016 None sinus congestion Onset and Resolution ongoing 07/09/2016 None sinus congestion Onset of Symptom _ days ago 07/09/2016 None sinus congestion Severity mild 07/09/2016 None sinus congestion Frequency of Episodes increasing 07/09/2016 None sinus congestion Significant Medical Conditions allergic rhinitis 07/09/2016 None sinus congestion Significant Medications nasal spray 07/09/2016 None sinus congestion Triggers allergens 07/09/2016 None sinus congestion Pertinent Findings Denies cough 07/09/2016 None sinus congestion Pertinent Findings Denies decreased energy level 07/09/2016 None sinus congestion Pertinent Findings Denies fever 07/09/2016 None sinus congestion Location on the right 07/09/2016 None sinus congestion Quality acute 07/09/2016 None sinus congestion Onset and Resolution sudden in onset 01/26/2016 None sinus congestion Onset of Symptom 3 days ago 01/26/2016 None sinus congestion Pertinent Findings cough 01/26/2016 None sinus congestion Pertinent Findings hoarseness 01/26/2016 None sinus congestion Location on both sides 01/26/2016 None sinus congestion Quality constant 01/26/2016 None sinus congestion Quality fullness 01/26/2016 None sinus congestion Quality pressure 01/26/2016 None earache Location both ears 01/26/2016 None earache Onset and Resolution sudden in onset 01/26/2016 None earache Onset of Symptom 4 days ago 01/26/2016 None earache Triggers no known triggers 01/26/2016 None sinus congestion Onset and Resolution sudden in onset 12/12/2015 None sinus congestion Onset of Symptom 3 days ago 12/12/2015 None sinus congestion Pertinent Findings cough 12/12/2015 None sinus congestion Pertinent Findings hoarseness 12/12/2015 None sinus congestion Location on both sides 12/12/2015 None sinus congestion Quality constant 12/12/2015 None sinus congestion Quality fullness 12/12/2015 None sinus congestion Quality pressure 12/12/2015 None earache Location both ears 12/12/2015 None earache Onset and Resolution sudden in onset 12/12/2015 None earache Onset of Symptom 4 days ago 12/12/2015 None earache Triggers no known triggers 12/12/2015 None sinus congestion Onset and Resolution sudden in onset 11/26/2015 None sinus congestion Onset of Symptom 3 days ago 11/26/2015 None sinus congestion Pertinent Findings cough 11/26/2015 None sinus congestion Pertinent Findings hoarseness 11/26/2015 None sinus congestion Location on both sides 11/26/2015 None sinus congestion Quality fullness 11/26/2015 None sinus congestion Quality constant 11/26/2015 None sinus congestion Quality pressure 11/26/2015 None earache Location both ears 11/26/2015 None earache Onset and Resolution sudden in onset 11/26/2015 None earache Onset of Symptom 4 days ago 11/26/2015 None earache Triggers no known triggers 11/26/2015 None cough Location in the throat 06/25/2015 None cough Quality dry 05/2015 None cough Quality hacking 06/25/2015 None cough Onset and Resolution sudden in onset 06/25/2015 None cough Onset of Symptom 10 days ago 06/25/2015 None cough Frequency of Episodes daily 06/25/2015 None sinus congestion Onset and Resolution sudden in onset 06/25/2015 None sinus congestion Onset of Symptom 10 days ago 06/25/2015 None sinus congestion Pertinent Findings cough 06/25/2015 None sinus congestion Pertinent Findings hoarseness 06/25/2015 None sinus congestion Location on both sides 06/25/2015 None sinus congestion Quality fullness 06/25/2015 None sinus congestion Quality pressure 06/25/2015 None earache Location both ears 06/25/2015 None earache Onset and Resolution sudden in onset 06/25/2015 None earache Onset of Symptom 10 days ago 06/25/2015 None earache Frequency of Episodes daily 06/25/2015 None cough Quality intermittent 05/02/2015 None cough Quality improving 05/02/2015 None cough Onset and Resolution gradual in onset 05/02/2015 None cough Onset of Symptom _ weeks ago 05/02/2015 None shortness of breath Quality improving 05/02/2015 None shortness of breath Onset and Resolution gradual in onset 05/02/2015 None shortness of breath Onset of Symptom _ weeks ago 05/02/2015 None Hospital Follow Up _ pneumonia 05/02/2015 None Hospital Follow Up Quality acute illness 05/02/2015 None Hospital Follow Up Location diffusely 05/02/2015 None cough Location in the throat 04/21/2015 None cough Quality worsening 04/21/2015 None cough Onset and Resolution ongoing 04/21/2015 None cough Frequency of Episodes daily 04/21/2015 None cough Frequency of Episodes hourly 04/21/2015 None cough Length of Episodes 2 weeks 04/21/2015 None cough Pertinent Findings Denies chest discomfort 04/21/2015 None cough Pertinent Findings Denies apnea 04/21/2015 None cough Pertinent Findings dyspnea 04/21/2015 None cough Pertinent Findings fever 04/21/2015 None dyspnea Quality chest tightness 04/21/2015 None dyspnea Quality worsening 04/21/2015 None dyspnea Onset of Symptom 1 weeks ago 04/21/2015 None dyspnea Pertinent Findings Denies chest discomfort 04/21/2015 None dyspnea Pertinent Findings cough 04/21/2015 None dyspnea Pertinent Findings fever 04/21/2015 None dyspnea Limitation on Activities moderately limits activities 04/21/2015 None dyspnea Frequency of Episodes increasing 04/21/2015 None cough Location in the throat 04/15/2015 None cough Quality hacking 04/15/2015 None cough Quality productive 04/15/2015 None cough Onset and Resolution sudden in onset 04/15/2015 None cough Onset of Symptom 2 days ago 04/15/2015 None cough Frequency of Episodes daily 04/15/2015 None cough Pertinent Findings chest discomfort 04/15/2015 None cough Pertinent Findings fever 04/15/2015 None cough Pertinent Findings hoarseness 04/15/2015 None cough Pertinent Findings nasal congestion 04/15/2015 None sinus congestion Location on both sides 04/15/2015 None sinus congestion Quality fullness 04/15/2015 None sinus congestion Onset and Resolution sudden in onset 04/15/2015 None sinus congestion Onset of Symptom 2 days ago 04/15/2015 None sinus congestion Frequency of Episodes daily 04/15/2015 None sinus congestion Pertinent Findings cough 04/15/2015 None sinus congestion Pertinent Findings fever 04/15/2015 None sinus congestion Pertinent Findings hoarseness 04/15/2015 None sore throat Location on both sides 04/15/2015 None sore throat Quality dull 04/15/2015 None sore throat Quality scratchy 04/15/2015 None sore throat Onset and Resolution sudden in onset 04/15/2015 None sore throat Onset of Symptom 2 days ago 04/15/2015 None sore throat Frequency of Episodes daily 04/15/2015 None sore throat Pertinent Findings cough 04/15/2015 None sore throat Pertinent Findings fever 04/15/2015 None sore throat Pertinent Findings nasal congestion 04/15/2015 None sinus congestion Onset and Resolution sudden in onset 03/11/2015 None sinus congestion Onset of Symptom 1 weeks ago 03/11/2015 None sinus congestion Severity mild 03/11/2015 None cough Onset of Symptom 2 days ago 09/03/2014 None cough Pertinent Findings chest discomfort 09/03/2014 feels fullness in chest cough Pertinent Findings Denies dyspnea 09/03/2014 None sinus congestion Onset of Symptom 2 days ago 09/03/2014 None sinus congestion Pertinent Findings Denies facial pain 09/03/2014 pressure sinus congestion Pertinent Findings decreased energy level 09/03/2014 None sinus congestion Pertinent Findings cough 09/03/2014 None headache Onset of Symptom 2 days ago 09/03/2014 intermittent headache Location in the frontal area 09/03/2014 also back left side headache Pertinent Findings cough 09/03/2014 None headache Pertinent Findings Denies dyspnea 09/03/2014 None cough Onset and Resolution ongoing 09/03/2014 None cough Quality acute None cough Limitation on Activities does not limit activities 09/03/2014 None cough Frequency of Episodes increasing 09/03/2014 None sinus congestion Severity moderate 09/03/2014 None sinus congestion Frequency of Episodes increasing 09/03/2014 None sinus congestion Significant Medical Conditions allergic rhinitis 09/03/2014 None sinus congestion Triggers allergens 09/03/2014 None sinus congestion Location on both sides 09/03/2014 None sinus congestion Quality acute 09/03/2014 None vision change Location in the left eye 05/27/2014 None vision change Quality blurred vision 05/27/2014 None vision change Onset of Symptom 4 days ago 05/27/2014 None vision change Frequency of Episodes daily 05/27/2014 None vision change Pertinent Findings Denies dyspnea 05/27/2014 None vision change Pertinent Findings Denies fever 05/27/2014 None fatigue Onset of Symptom 6+ months ago 04/30/2014 None fatigue Pertinent Findings back pain 04/30/2014 chronic- 2 herniated discs ~generic Onset of Symptom _ weeks ago 04/30/2014 hysterectomy in December. Reports still having hot flashes and she hasnt had any blood work done since that time. ~generic Severity moderate 04/30/2014 None sinus congestion Onset of Symptom 1 weeks ago 04/04/2014 None sinus congestion Pertinent Findings cough 04/04/2014 None sinus congestion Pertinent Findings decreased energy level 04/04/2014 None sinus congestion Pertinent Findings Denies fever 04/04/2014 None earache Location right ear 04/04/2014 None earache Onset of Symptom _ days ago 04/04/2014 this morning sore throat Location on the right 04/04/2014 None sore throat Onset of Symptom _ days ago 04/04/2014 this morning sore throat Pertinent Findings cough 04/04/2014 None sore throat Pertinent Findings decreased energy level 04/04/2014 None sore throat Pertinent Findings Denies fever 04/04/2014 None cough Location in the lung 04/04/2014 None cough Location in the larynx 04/04/2014 None cough Quality acute None cough Limitation on Activities moderately limits activities 04/04/2014 None cough Triggers ill contacts 04/04/2014 None cough Triggers post nasal drip 04/04/2014 None cough Pertinent Findings Denies chills 04/04/2014 None cough Pertinent Findings Denies chest discomfort 04/04/2014 None abdominal pain Location in the RUQ 12/04/2013 None abdominal pain Radiating the back 12/04/2013 None abdominal pain Quality intermittent 12/04/2013 None abdominal pain Onset of Symptom 5 days ago 12/04/2013 None abdominal pain Frequency of Episodes daily 12/04/2013 None abdominal pain Timing of Episodes all day long 12/04/2013 None abdominal pain Alleviating Factors position change 12/04/2013 None abdominal pain Exacerbating Factors eating 12/04/2013 greasy foods abdominal pain Pertinent Findings Denies chills 12/04/2013 None abdominal pain Pertinent Findings dyspepsia 12/04/2013 None abdominal pain Pertinent Findings Denies fever 12/04/2013 None abdominal pain Pertinent Findings heartburn 12/04/2013 None abdominal pain Pertinent Findings Denies nausea 12/04/2013 None abdominal pain Pertinent Findings Denies vomiting 12/04/2013 ate a greasy omelet around 10am, vomited around 5pm abdominal pain Location in the RUQ 10/25/2013 None abdominal pain Radiating the back 10/25/2013 None abdominal pain Quality intermittent 10/25/2013 None abdominal pain Onset of Symptom 5 days ago 10/25/2013 None abdominal pain Frequency of Episodes daily 10/25/2013 None abdominal pain Timing of Episodes all day long 10/25/2013 None abdominal pain Alleviating Factors position change 10/25/2013 None abdominal pain Exacerbating Factors eating 10/25/2013 greasy foods abdominal pain Pertinent Findings dyspepsia 10/25/2013 None abdominal pain Pertinent Findings Denies fever 10/25/2013 None abdominal pain Pertinent Findings Denies chills 10/25/2013 None abdominal pain Pertinent Findings heartburn 10/25/2013 None abdominal pain Pertinent Findings Denies nausea 10/25/2013 None abdominal pain Pertinent Findings vomiting 10/25/2013 ate a greasy omelet around 10am, vomited around 5pm dysuria Onset and Resolution sudden in onset 10/16/2013 None dysuria Onset of Symptom 5 days ago 10/16/2013 None dysuria Pertinent Findings pelvic pain 10/16/2013 None dysuria Quality acute 10/16/2013 None hypertension Quality improving 07/30/2013 None hypertension Blood Pressure Values patient checking blood pressure at home - did not bring in readings 07/30/2013 None hypertension Pertinent Findings edema 07/30/2013 None hypertension Pertinent Findings Denies dyspnea 07/30/2013 None hypertension Pertinent Findings Denies dizziness 07/30/2013 None hypertension Pertinent Findings tachycardia 07/30/2013 None hypertension Onset of Symptom during adulthood 07/30/2013 None hypertension Severity not consistently severe symptoms, the symptoms fluctuate from no symptoms to anxiety and headaches 07/30/2013 None hypertension Triggers no known associated factors 07/30/2013 None hypertension Alleviating Factors medication 07/30/2013 None hypertension Pertinent Findings obesity 07/30/2013 None well woman exam (40-65 years) Pap Smear normal results 10/26/2012 None well woman exam (40-65 years) Menstrual History regular menses 10/26/2012 None well woman exam (40-65 years) Menstrual History period length of 7 days 10/26/2012 None well woman exam (40-65 years) Menstrual History 28 days between periods 10/26/2012 None well woman exam (40-65 years) Menstrual History last menstrual period last week 10/26/2012 None well woman exam (40-65 years) Menstrual History normal flow 10/26/2012 None hypertension Quality chronic 10/26/2012 None hypertension Quality stable 10/26/2012 None hypertension Onset and Resolution ongoing 10/26/2012 None well woman exam (40-65 years) Cardiovascular Risk Factors family history of cardiovascular disease None well woman exam (40-65 years) Cardiovascular Risk Factors hypertension 10/26/2012 None well woman exam (40-65 years) Cardiovascular Risk Factors lifestyle 10/26/2012 None well woman exam (40-65 years) Cardiovascular Risk Factors obesity 10/26/2012 None well woman exam (40-65 years) Health Guidance baseline mammogram 10/26/2012 None well woman exam (40-65 years) Health Guidance colonoscopy/sigmoidoscopy 10/26/2012 None well woman exam (40-65 years) Health Guidance depression symptoms 10/26/2012 None well woman exam (40-65 years) Health Guidance self-breast exam 10/26/2012 None well woman exam (40-65 years) Immunizations influenza vaccine (annually over 50 y.o.) 10/26/2012 None well woman exam (40-65 years) Nutrition and Exercise balanced nutrition 10/26/2012 None well woman exam (40-65 years) Nutrition and Exercise minimal exercise 10/26/2012 None well woman exam (40-65 years) Obstetrical History 0 total pregnancies 10/26/2012 None hypertension Blood Pressure Values pt checking blood pressure - see scanned document 10/26/2012 None hypertension Pertinent Findings Denies dyspnea 10/26/2012 None hypertension Pertinent Findings Denies dizziness 10/26/2012 None hypertension Pertinent Findings Denies decreased energy 10/26/2012 None hypertension Pertinent Findings Denies edema 10/26/2012 None hypertension Pertinent Findings tachycardia 10/26/2012 None hypertension Pertinent Findings Denies palpitations 10/26/2012 None hypertension Pertinent Findings Denies orthostatic hypotension 10/26/2012 None well woman exam (40-65 years) Lifestyle no history of physical abuse 10/26/2012 None well woman exam (40-65 years) Lifestyle no history of sexual abuse 10/26/2012 None well woman exam (40-65 years) Lifestyle no history of verbal abuse 10/26/2012 None well woman exam (40-65 years) Lifestyle regular seatbelt use 10/26/2012 None well woman exam (40-65 years) Lifestyle family supportive of relationship 10/26/2012 None well woman exam (40-65 years) Lifestyle satisfactory marriage/partner relationship 10/26/2012 None well woman exam (40-65 years) Control partner S/P vasectomy 10/26/2012 None well woman exam (40-65 years) Nutrition and Exercise overweight 10/26/2012 None well woman exam (40-65 years) Sexual Activity experiences sexual satisfaction 10/26/2012 None well woman exam (40-65 years) Sexual Activity is monogamous 10/26/2012 None well woman exam (40-65 years) Cardiovascular Risk Factors dyslipidemia 10/26/2012 None hypertension Quality chronic 10/03/2012 None hypertension Onset and Resolution ongoing 10/03/2012 None hypertension Blood Pressure Values not checking blood pressure at home 10/03/2012 None abdominal pain Location in the RUQ 10/03/2012 None abdominal pain Onset of Symptom 2 years ago 10/03/2012 None abdominal pain Frequency of Episodes weekly 10/03/2012 thinks it may be related to ovary abdominal pain Frequency of Episodes increasing 10/03/2012 None abdominal pain Pertinent Findings Denies abdominal distension 10/03/2012 None hypertension Severity mild 10/03/2012 None hypertension Pertinent Findings Denies abdominal mass 10/03/2012 None hypertension Pertinent Findings Denies anxiety 10/03/2012 None hypertension Pertinent Findings decreased energy 10/03/2012 None Advance Directives No Advance Directive data Encounters Encounter Performer Location Codes Date ([id number]) PREV VISIT EST AGE 40-64 Diagnosis: Encounter for gynecological examination (general) (routine) without abnormal findings[ICD10: Z01.419] [facility] CPT-4: 72336 11/25/2016 ([id number]) 09505 EST. PATIENT, LEVEL III Diagnosis: Low back pain[ICD10: M54.5] Diagnosis: Allergic rhinitis due to pollen[ICD10: J30.1] [facility] CPT-4: 30205 07/09/2016 06613 EST. PATIENT, LEVEL III Diagnosis: Other allergic rhinitis[ICD10: J30.89] [facility] CPT-4: 11764 01/26/2016 [id number] EST. PATIENT, LEVEL IV Diagnosis: Other allergic rhinitis[ICD10: J30.89] Diagnosis: Acute laryngopharyngitis[ICD10: J06.0] Janie Preciado MD, [facility] CPT-4: 36041 12/12/2015 [id number] EST. PATIENT, LEVEL IV Diagnosis: Other acute sinusitis[ICD10: J01.80] Diagnosis: Acute laryngopharyngitis[ICD10: J06.0] Diagnosis: Other allergic rhinitis[ICD10: J30.89] Janie Preciado MD, [facility] CPT-4: 80588 11/26/2015 91777 EST. PATIENT, LEVEL IV Diagnosis: Acute recurrent maxillary sinusitis[ICD10: J01.01] Diagnosis: Acute upper respiratory infection, unspecified[ICD10: J06.9] Diagnosis: Other allergic rhinitis[ICD10: J30.89] Diagnosis: Other obesity due to excess calories[ICD10: E66.09] Ibis Preciado MD [facility] CPT-4: 59064 06/25/2015 28907 EST. PATIENT, LEVEL III Diagnosis: Cough[ICD10: R05] Diagnosis: Unspecified bacterial pneumonia[ICD10: J15.9] Diagnosis: Encounter for follow-up examination after completed treatment for conditions other than malignant neoplasm[ICD10: Z09] Diagnosis: Other specified noninfective gastroenteritis and colitis[ICD10: K52.89] Sabrina Preciado MD, [facility] CPT-4: 97353 12/2015 ([id number]) Patient admitted to the hospital from clinic (NO CHARGE) Diagnosis: Cough[ICD10: R05] Diagnosis: Unspecified bacterial pneumonia[ICD10: J15.9] Diagnosis: Hypoxemia[ICD10: R09.02] Diagnosis: Nausea with vomiting, unspecified[ICD10: R11.2] Ibis Preciado MD, [facility] CPT-4: 82207H 04/21/2015 19827 EST. PATIENT, LEVEL IV Diagnosis: Other acute sinusitis[ICD10: J01.80] Diagnosis: Cough[ICD10: R05] Diagnosis: Acute upper respiratory infection, unspecified[ICD10: J06.9] Janie Preciado MD , [facility] CPT-4: 74825 04/15/2015 ([id number]) 92858 EST. PATIENT, LEVEL III Diagnosis: Acute recurrent maxillary sinusitis[ICD10: J01.01] Ibis Precidao MD [facility] CPT-4: 52398 03/11/2015 ([id number]) 69946 EST. PATIENT, LEVEL III Diagnosis: ACUTE SINUSITIS[ICD9: 461.9] Diagnosis: ALLERGIC RHINITIS[ICD9: 477.9] Sabrina Preciado MD [facility] CPT-4: 08117 09/03/2014 ([id number]) 02595 EST. PATIENT, LEVEL IV Diagnosis: Sudden visual loss of left eye[ICD9: 368.11] Diagnosis: Pentecostalism tenderness[ICD9: 784.0] Ibis Preciado MD [facility] CPT- 4: 80316 05/27/2014 ([id number]) 25802 EST. PATIENT, LEVEL IV Diagnosis: Menopausal symptoms[ICD9: 627.2] Diagnosis: ESSENTIAL HYPERTENSION[ICD9: 401.9] Diagnosis: MALAISE AND FATIGUE[ICD9: 780.79] Ibis Preciado MD [facility] CPT-4: 93108 04/30/2014 ([id number]) 33015 EST. PATIENT, LEVEL III Diagnosis: ACUTE FRONTAL SINUSITIS[ICD9: 461.1] Diagnosis: HEADACHE[ICD9: 784.0] Diagnosis: COUGH[ICD9: 786.2] Ibis Preciado MD [facility] CPT-4: 65218 04/04/2014 ([id number]) 80982 EST. PATIENT, LEVEL III Diagnosis: Ovarian mass[ICD9: 620.9] Diagnosis: Uterine fibroid[ICD9: 218.9] Diagnosis: Abdominal pain[ICD9: 789.00] Ibis Preciado MD [facility] CPT- 4: 44578 12/04/2013 ([id number]) 26849 EST. PATIENT, LEVEL III Diagnosis: Abdominal pain[ICD9: 789.00] Diagnosis: Diarrhea[ICD9: 787.91] Ibis Preciado MD [facility] CPT-4: 38408 10/25/2013 ([id number]) 98083 EST. PATIENT, LEVEL III Diagnosis: DYSURIA[ICD9: 788.1] Ibis Preciado MD, [facility] CPT-4: 44821 10/16/2013 ([id number]) 50978 EST. PATIENT, LEVEL III Diagnosis: ESSENTIAL HYPERTENSION[SNOMED: 64335225] Diagnosis: Hyperlipidemia[ICD9: 272.4] bIis Preciado MD, [facility] CPT- 4: 26418 07/30/2013 ([id number]) OFFICE VISIT, NEW - LEVEL 3 Diagnosis: ESSENTIAL HYPERTENSION[SNOMED: 43652237] Diagnosis: OBESITY[ICD9: 278.00] Diagnosis: Abdominal pain[ICD9: 789.00] Ibis Preciado MD, [facility] CPT- 4: 61374 10/03/2012 Plan of Care Planned Activity Notes Codes Status Date Visit Plan: Well Adult - pt was counseled about diet, exercise, and encouraged to follow a heart healthy diet and increase activity level. The patient was instructed to RTC yearly for well adult exams and PRN for acute illnesses. The pt was also instructed to have yearly labs for check of cholesterol, thyroid, chem panel, CBC, and renal functioning. Abrasion of vagina - recommended patient to use [place] oils to help decrease friction with intercourse. 11/25/2016 Appointment: Ibis Preciado WPtel: [address] [place], [place] [id number] (15 min) Moderate 11/25/2016 Patient Education: Patient Medication Summary Completed 11/25/2016 Visit Plan: Chronic allergies-sinus congestion-right earache/neck pain-kenalog injection today - recommended pt to use allergy medication as prescribed. Pt has been counseled as to the appropriate use of the medication. Pt to call if allergy symptoms are not controlled with the medication. If using nasal spray, instructions as follows: Nasal spray- use twice daily, one spray per nostril twice daily, after 30 minutes, rinse out nose with saline spray.. Use opposite hand per nostril to spray in the nasal steroid allergy spray. Chronic low back pain-history of ruptured L5-S1-had injections in the past 8-9 years ago-refer to Dr Hall for evaluation for epidural injection. 07/09/2016 Visit Plan: Chronic allergies-sinus congestion-right earache/neck pain-kenalog injection today - recommended pt to use allergy medication as prescribed. Pt has been counseled as to the appropriate use of the medication. Pt to call if allergy symptoms are not controlled with the medication. If using nasal spray, instructions as follows: Nasal spray- use twice daily, one spray per nostril twice daily, after 30 minutes, rinse out nose with saline spray.. Use opposite hand per nostril to spray in the nasal steroid allergy spray. Chronic low back pain-history of ruptured L5-S1-had injections in the past 8-9 years ago-refer to Dr Hall for evaluation for epidural injection. 07/09/2016 Appointment: Sabrina Davidson WPtel: [address] [place], [place] [phone] (30 min) [facility] 07/09/2016 Patient Education: Patient Medication Summary Completed 07/09/2016 Care Plan: Referral Order history of ruptured disc L5-S1- had injections 8 or 9 years ago that were helpful SNOMED-CT : [id number] Pending 07/09/2016 Visit Plan: Allergies - chronic - recommended pt to use allergy medication as prescribed. Pt has been counseled as to the appropriate use of the medication. Pt to call if allergy symptoms are not controlled with the medication. If using nasal spray, instructions as follows: Nasal spray- use twice daily, one spray per nostril twice daily, after 30 minutes, rinse out nose with saline spray.. Use opposite hand per nostril to spray in the nasal steroid allergy spray. 01/26/2016 Patient Education: Patient Medication Summary Completed 01/26/2016 Patient Education: Obesity Completed 01/26/2016 Visit Plan: Allergies - chronic - recommended pt to use allergy medication as prescribed. Pt has been counseled as to the appropriate use of the medication. Pt to call if allergy symptoms are not controlled with the medication. If using nasal spray, instructions as follows: Nasal spray- use twice daily, one spray per nostril twice daily, after 30 minutes, rinse out nose with saline spray.. Use opposite hand per nostril to spray in the nasal steroid allergy spray. URI - Pt advised to increase fluids, vitamin C. Discussed natural and expected course of this diagnosis and need to alert me if symptoms do not follow expected course, or if any worse. RX sent to patient's pharmacy. 12/12/2015 Appointment: Sab[facility]el[phone] [phone] (10 min) Simple 12/12/2015 Patient Education: Patient Medication Summary Completed 12/12/2015 Visit Plan: Sinusitis - Pt has acute infection - pain in face, maxillary region, Pt informed to use decongestant, RX given to patient, sinus rinses also recommended. Call if symptoms do not show improvement. URI - Pt advised to increase fluids, vitamin C. Discussed natural and expected course of this diagnosis and need to alert me if symptoms do not follow expected course , or if any worse. RX sent to patient's pharmacy. Allergies - chronic - recommended pt to use allergy medication as prescribed. Pt has been counseled as to the appropriate use of the medication. Pt to call if allergy symptoms are not controlled with the medication. If using nasal spray, instructions as follows: Nasal spray- use twice daily, one spray per nostril twice daily, after 30 minutes, rinse out nose with saline spray.. Use opposite hand per nostril to spray in the nasal steroid allergy spray. 11/26/2015 Visit Plan: Sinusitis - Pt has acute infection - pain in face, maxillary region, Pt informed to use decongestant, RX given to patient, sinus rinses also recommended. Call if symptoms do not show improvement. URI - Pt advised to increase fluids, vitamin C. Discussed natural and expected course of this diagnosis and need to alert me if symptoms do not follow expected course , or if any worse. RX sent to patient's pharmacy. Allergies - chronic - recommended pt to use allergy medication as prescribed. Pt has been counseled as to the appropriate use of the medication. Pt to call if allergy symptoms are not controlled with the medication. If using nasal spray, instructions as follows: Nasal spray- use twice daily, one spray per nostril twice daily, after 30 minutes, rinse out nose with saline spray.. Use opposite hand per nostril to spray in the nasal steroid allergy spray. 11/26/2015 Appointment: Sabrina Davidson WPtel: [phone] (15 min) Moderate 11/26/2015 Patient Education: Patient Medication Summary Completed 11/26/2015 Care Plan: BMI Above normal followup SELF-MGMT EDUC & TRAIN 1 PT Pending 2015 Visit Plan: URI - Pt advised to increase fluids, vitamin C. Discussed natural and expected course of this diagnosis and need to alert me if symptoms do not follow expected course, or if any worse. RX sent to patient' s pharmacy. Sinusitis - Pt has acute infection - pain in face, maxillary region , Pt informed to use decongestant, RX given to patient, sinus rinses also recommended. Call if symptoms do not show improvement. Allergies - chronic - recommended pt to use allergy medication as prescribed. Pt has been counseled as to the appropriate use of the medication. Pt to call if allergy symptoms are not controlled with the medication. If using nasal spray, instructions as follows: Nasal spray- use twice daily, one spray per nostril twice daily, after 30 minutes, rinse out nose with saline spray.. Use opposite hand per nostril to spray in the nasal steroid allergy spray. BMI 38 - The pt has been counseled about diet changes, calorie restriction, and need to exercise. Pt will RTC for weight check. 06/25/2015 Patient Education: Patient Medication Summary Completed 06/25/2015 Patient Education: Obesity Completed 06/25/2015 Visit Plan: Pneumonia-hospital follow up-pnuemonia resolved -no further treatment needed-call with any questions or concerns Diarrhea- improved-continue probiotics as directed-call if diarrhea does not completely resolve or if any worse 05/02/2015 Appointment: Sabrina Davidson WPtel: [address] [place], [place] [phone] (15 min) Moderate 05/02/2015 Patient Education: Patient Medication Summary Completed 05/02/2015 Patient Education: Obesity Completed 05/02/2015 Care Plan: BMI NOT CALCULATED Ordered 05/02/2015 Visit Plan: ADMIT FROM CLINIC TO HOSPITAL - PT IS ACUTELY ILL, REQUIRES HOSPITALIZATION. THE PATIENT HAS BEEN EVALUATED IN CLINIC AND THIS STANDS THE HOSPITAL HISTORY AND PHYSICAL EXAMINATION. THE PATIENT HAS BEEN SENT TO THE HOSPITAL WITH WRITTEN ORDERS FOR TREATMENT AND EVALUATION OF THE ACUTE ILLNESS. PNEUMONIA-HYPOXEMIA- PT IS CLINICALLY SYMPTOMATIC FOR PNEUMONIA - A CHEST XRAY, SPUTUM C AND S, BLOOD CULTURES, AND LABS HAVE BEEN ORDERED IN ORDER TO FURTHER WORK-UP THE ACUTE ILLNESS. NAUSEA EMESIS AND DIARRHEA - PT WITH RECENT GI SYMPTOMS - SHE HAS RESOLUTION OF DIARRHEA - BUT IS ADMITTED TO THE HOSPTIAL FOR FURTHER TREATMENT OF HER PNEUMONIA AND WILL ORDER FLUIDS FOR REHYDRATION. 04/21/2015 Visit Plan: PNEUMONIA-HYPOXEMIA- PT IS CLINICALLY SYMPTOMATIC FOR PNEUMONIA - A CHEST XRAY, SPUTUM C AND S, BLOOD CULTURES, AND LABS HAVE BEEN ORDERED IN ORDER TO FURTHER WORK-UP THE ACUTE ILLNESS. 04/21/2015 Patient Education: Patient Medication Summary Completed 04/21/2015 Visit Plan: URI - Pt advised to increase fluids, vitamin C. Discussed natural and expected course of this diagnosis and need to alert me if symptoms do not follow expected course, or if any worse. RX sent to patient' s pharmacy. Sinusitis - Pt has acute infection - pain in face, maxillary region , Pt informed to use decongestant, RX given to patient, sinus rinses also recommended. Call if symptoms do not show improvement. 04/15/2015 Appointment: (30 min) Complex 04/15/2015 Patient Education: Patient Medication Summary Completed 04/15/2015 Visit Plan: Sinusitis - Pt has acute infection - pain in face, maxillary region, Pt informed to use decongestant, RX given to patient, sinus rinses also recommended. Call if symptoms do not show improvement. Kenalog injection today in the office 03/11/2015 Appointment: Sabrina Davidson WPtel: [address] [place], [place] [phone] (15 min) Moderate 03/11/2015 Patient Education: Patient Medication Summary Completed 03/11/2015 Visit Plan: Sinusitis - Pt has acute infection - pain in face, maxillary region, Pt informed to use decongestant, RX given to patient, sinus rinses also recommended. Call if symptoms do not show improvement. 09/03/2014 Appointment: Sabrina Davidson WPtel: [phone] (15 min) Moderate 09/03/2014 Patient Education: Patient Medication Summary Completed 09/03/2014 Visit Plan: Suspect Giant Cell Arteritis - RX for prednisone given to patient, stat labs today cbc, cmp, esr, crp, abebe panca, canca, antids dna, ra factor - Shot of kenalog 80mg IM today, MRI scheduled for tomorrow Morning 8AM. (tried for stat MRI, hospital reports that they do not do stat outpatient MRI's I will see if pt needs biopsy once reports are back in my office for review. Addendum:- - report of very mildly elevated ESR/CRP, and MRI with nonspecific findings- may be a demyelinating process versus normal aging process. 05/27/2014 Appointment: Ibis Preciado WPtel: [phone] [facility] Follow up 05/27/2014 Patient Education: Patient Medication Summary Completed 05/27/2014 Visit Plan: Menopausal symptoms - recommended pt to start on estradiol tablets, call if symptoms do not improve. Hypertension - well controlled - continue with current medications, continue with no added salt diet. Pt has been encouraged to exercise daily. The pt has been advised to call the office if there are any acute concerns about change in blood pressure readings at home. 04/30/2014 Appointment: Ibis Preciado WPtel: [address] [place], [place] [phone] Follow up 04/30/2014 Patient Education: Patient Medication Summary Completed 04/30/2014 Patient Education: Hypertension Completed 04/30/2014 Visit Plan: Sinusitis - Pt has acute infection - pain in face, maxillary region, Pt informed to use decongestant, RX given to patient, sinus rinses also recommended. Call if symptoms do not show improvement. 04/04/2014 Appointment: Ibis Preciado WPtel: [facility] Sick 04/04/2014 Patient Education: Patient Medication Summary Completed 04/04/2014 Visit Plan: Mass in right ovary - discussed report results with the patient - appt with Dr. Curry - 12/11/13 @ 1100 12/04/2013 Appointment: Ibis Preciado [facility]Ptel[phone] Follow up 12/04/2013 Patient Education: Patient Medication Summary Completed 12/04/2013 Visit Plan: Abdominal pain, diarrhea - recommended pt to finish antibiotic, monitor I/O, start on probiotics,, and check scan of abdomen. 10/25/2013 Appointment: Ibis Preciado WPtel: [phone] [facility] Sick 10/25/2013 Patient Education: Patient Medication Summary Completed 10/25/2013 Visit Plan: UTI - pt with positive urinalysis - culture sent if appropriate. Antibiotic electronically prescribed to pt's pharmacy of choice. Pt to call if symptoms do not improve. 10/16/2013 Appointment: Ibis Preciado WPtel: [phone] [facility] Sick 10/16/2013 Patient Education: Patient Medication Summary Completed 10/16/2013 Visit Plan: Hypertension - well controlled - continue with current medications, continue with no added salt diet. Pt has been encouraged to exercise daily. The pt has been advised to call the office if there are any acute concerns about change in blood pressure readings at home. Hyperlipidemia - pt has been counseled about appropriate diet, exercise, and need for low fat food choices. I have discussed the need for the patient to take medications as prescribed. If the patient has negative side effects from the medication, they are to CALL the office and not abruptly discontinue the medication without discussion with a practicioner in the office. We will check labs in 3-6 months for follow up on the patient's chronic medical problem and to assure normal liver response to medications. 07/30/2013 Appointment: Sab[facility] Davidson [facility]Ptel[facility] [phone] [phone] Follow up 07/30/2013 Patient Education: Patient Medication Summary Completed 07/30/2013 Patient Education: Hypertension Completed 07/30/2013 Visit Plan: Well Adult Female - exam completed. Pap and gc/ chlamydia and breast exam completed. Pt will be called with results of her testing. She was advised to continue with yearly annual exams. Safe sex practices discussed during office visit today. Call if any abnormal gynecologic issues during the next year, otherwise, RTC yearly or prn. 10/26/2012 Appointment: Ibis Preciado WPtel: [phone] [facility] Pap Only 10/26/2012 Patient Education: Patient Medication Summary Completed 10/26/2012 Visit Plan: Hypertension - uncontrolled - The patient has been counseled to cut back on salt in diet for a no added salt diet, low fat diet, start an exercise program with low weight bearing exercises and higher aerobic activity for heart health. The patient is to check blood pressure readings as an outpatient and either fax, drop off or call the readings to the office next week for practicioner to review. The pt is to call for acute concerns. Recommended pt to return to clinic for a pelvic exam, and then we will determine further steps to take in regard to her abdominal discomfort. 10/03/2012 Appointment: Ibis Preciado [facility]Ptel[phone] New Patient 10/03/2012 Patient Education: Patient Medication Summary Completed 10/03/2012 Patient Education: Hypertension Completed 10/03/2012 Referral: Trenton Hall Referral Appointment Requested Instructions Comment . UTI - pt with positive urinalysis - culture sent if appropriate. Antibiotic electronically prescribed to pt's pharmacy of choice. Pt to call if symptoms do not improve. . Well Adult - pt was counseled about diet, exercise, and encouraged to follow a heart healthy diet and increase activity level. The patient was instructed to RTC yearly for well adult exams and PRN for acute illnesses. The pt was also instructed to have yearly labs for check of cholesterol, thyroid, chem panel, CBC, and renal functioning. Abrasion of vagina - recommended patient to use [place] oils to help decrease friction with intercourse. . Allergies - chronic - recommended pt to use allergy medication as prescribed. Pt has been counseled as to the appropriate use of the medication. Pt to call if allergy symptoms are not controlled with the medication. If using nasal spray, instructions as follows: Nasal spray- use twice daily, one spray per nostril twice daily, after 30 minutes, rinse out nose with saline spray.. Use opposite hand per nostril to spray in the nasal steroid allergy spray. . Hypertension - uncontrolled - The patient has been counseled to cut back on salt in diet for a no added salt diet, low fat diet, start an exercise program with low weight bearing exercises and higher aerobic activity for heart health. The patient is to check blood pressure readings as an outpatient and either fax , drop off or call the readings to the office next week for practicioner to review. The pt is to call for acute concerns. Recommended pt to return to clinic for a pelvic exam, and then we will determine further steps to take in regard to her abdominal discomfort. . Abdominal pain, diarrhea - recommended pt to finish antibiotic, monitor I/O, start on probiotics,, and check scan of abdomen. . URI - Pt advised to increase fluids, vitamin C. Discussed natural and expected course of this diagnosis and need to alert me if symptoms do not follow expected course, or if any worse. RX sent to patient's pharmacy. Sinusitis - Pt has acute infection - pain in face, maxillary region, Pt informed to use decongestant, RX given to patient, sinus rinses also recommended. Call if symptoms do not show improvement. . Suspect Giant Cell Arteritis - RX for prednisone given to patient, stat labs today cbc, cmp, esr, crp, abebe panca, canca, antids dna, ra factor - Shot of kenalog 80mg IM today, MRI scheduled for tomorrow Morning 8AM. (tried for stat MRI, hospital reports that they do not do stat outpatient MRI's I will see if pt needs biopsy once reports are back in my office for review. Addendum:- - report of very mildly elevated ESR/CRP, and MRI with nonspecific findings- may be a demyelinating process versus normal aging process. . Sinusitis - Pt has acute infection - pain in face, maxillary region, Pt informed to use decongestant, RX given to patient, sinus rinses also recommended. Call if symptoms do not show improvement. Kenalog injection today in the office . Well Adult Female - exam completed. Pap and gc/ chlamydia and breast exam completed. Pt will be called with results of her testing. She was advised to continue with yearly annual exams. Safe sex practices discussed during office visit today. Call if any abnormal gynecologic issues during the next year, otherwise, RTC yearly or prn. . URI - Pt advised to increase fluids, vitamin C. Discussed natural and expected course of this diagnosis and need to alert me if symptoms do not follow expected course, or if any worse. RX sent to patient's pharmacy. Sinusitis - Pt has acute infection - pain in face, maxillary region, Pt informed to use decongestant, RX given to patient, sinus rinses also recommended. Call if symptoms do not show improvement. Allergies - chronic - recommended pt to use allergy medication as prescribed. Pt has been counseled as to the appropriate use of the medication. Pt to call if allergy symptoms are not controlled with the medication. If using nasal spray, instructions as follows: Nasal spray- use twice daily, one spray per nostril twice daily, after 30 minutes, rinse out nose with saline spray.. Use opposite hand per nostril to spray in the nasal steroid allergy spray. BMI 38 - The pt has been counseled about diet changes, calorie restriction, and need to exercise. Pt will RTC for weight check. . Sinusitis - Pt has acute infection - pain in face, maxillary region, Pt informed to use decongestant, RX given to patient, sinus rinses also recommended. Call if symptoms do not show improvement. URI - Pt advised to increase fluids, vitamin C. Discussed natural and expected course of this diagnosis and need to alert me if symptoms do not follow expected course, or if any worse. RX sent to patient's pharmacy. Allergies - chronic - recommended pt to use allergy medication as prescribed. Pt has been counseled as to the appropriate use of the medication. Pt to call if allergy symptoms are not controlled with the medication. If using nasal spray, instructions as follows: Nasal spray- use twice daily, one spray per nostril twice daily, after 30 minutes, rinse out nose with saline spray.. Use opposite hand per nostril to spray in the nasal steroid allergy spray. . Sinusitis - Pt has acute infection - pain in face, maxillary region, Pt informed to use decongestant, RX given to patient, sinus rinses also recommended. Call if symptoms do not show improvement. URI - Pt advised to increase fluids, vitamin C. Discussed natural and expected course of this diagnosis and need to alert me if symptoms do not follow expected course, or if any worse. RX sent to patient's pharmacy. Allergies - chronic - recommended pt to use allergy medication as prescribed. Pt has been counseled as to the appropriate use of the medication. Pt to call if allergy symptoms are not controlled with the medication. If using nasal spray, instructions as follows: Nasal spray- use twice daily, one spray per nostril twice daily, after 30 minutes, rinse out nose with saline spray.. Use opposite hand per nostril to spray in the nasal steroid allergy spray. . Allergies - chronic - recommended pt to use allergy medication as prescribed. Pt has been counseled as to the appropriate use of the medication. Pt to call if allergy symptoms are not controlled with the medication. If using nasal spray, instructions as follows: Nasal spray- use twice daily, one spray per nostril twice daily, after 30 minutes, rinse out nose with saline spray.. Use opposite hand per nostril to spray in the nasal steroid allergy spray. URI - Pt advised to increase fluids, vitamin C. Discussed natural and expected course of this diagnosis and need to alert me if symptoms do not follow expected course, or if any worse. RX sent to patient's pharmacy. . Mass in right ovary - discussed report results with the patient - appt with Dr. Curry - 12/11/13 @ 1100 . Sinusitis - Pt has acute infection - pain in face, maxillary region, Pt informed to use decongestant, RX given to patient, sinus rinses also recommended. Call if symptoms do not show improvement. . Chronic allergies-sinus congestion-right earache/neck pain-kenalog injection today - recommended pt to use allergy medication as prescribed. Pt has been counseled as to the appropriate use of the medication. Pt to call if allergy symptoms are not controlled with the medication. If using nasal spray, instructions as follows: Nasal spray- use twice daily, one spray per nostril twice daily, after 30 minutes, rinse out nose with saline spray.. Use opposite hand per nostril to spray in the nasal steroid allergy spray. Chronic low back pain-history of ruptured L5-S1-had injections in the past 8-9 years ago-refer to Dr Hall for evaluation for epidural injection. . Chronic allergies-sinus congestion-right earache/neck pain-kenalog injection today - recommended pt to use allergy medication as prescribed. Pt has been counseled as to the appropriate use of the medication. Pt to call if allergy symptoms are not controlled with the medication. If using nasal spray, instructions as follows: Nasal spray- use twice daily, one spray per nostril twice daily, after 30 minutes, rinse out nose with saline spray.. Use opposite hand per nostril to spray in the nasal steroid allergy spray. Chronic low back pain-history of ruptured L5-S1-had injections in the past 8-9 years ago-refer to Dr Hall for evaluation for epidural injection. . Hypertension - well controlled - continue with current medications, continue with no added salt diet. Pt has been encouraged to exercise daily. The pt has been advised to call the office if there are any acute concerns about change in blood pressure readings at home. Hyperlipidemia - pt has been counseled about appropriate diet, exercise, and need for low fat food choices. I have discussed the need for the patient to take medications as prescribed. If the patient has negative side effects from the medication, they are to CALL the office and not abruptly discontinue the medication without discussion with a practicioner in the office. We will check labs in 3-6 months for follow up on the patient's chronic medical problem and to assure normal liver response to medications. . Pneumonia-hospital follow up-pnuemonia resolved-no further treatment needed-call with any questions or concerns Lmchhzlf-mvaubwlu-lqvhtoxj probiotics as directed-call if diarrhea does not completely resolve or if any worse . Menopausal symptoms - recommended pt to start on estradiol tablets, call if symptoms do not improve. Hypertension - well controlled - continue with current medications, continue with no added salt diet. Pt has been encouraged to exercise daily. The pt has been advised to call the office if there are any acute concerns about change in blood pressure readings at home. . ADMIT FROM CLINIC TO HOSPITAL - PT IS ACUTELY ILL, REQUIRES HOSPITALIZATION. THE PATIENT HAS BEEN EVALUATED IN CLINIC AND THIS STANDS THE HOSPITAL HISTORY AND PHYSICAL EXAMINATION. THE PATIENT HAS BEEN SENT TO THE HOSPITAL WITH WRITTEN ORDERS FOR TREATMENT AND EVALUATION OF THE ACUTE ILLNESS. PNEUMONIA-HYPOXEMIA- PT IS CLINICALLY SYMPTOMATIC FOR PNEUMONIA - A CHEST XRAY, SPUTUM C AND S, BLOOD CULTURES, AND LABS HAVE BEEN ORDERED IN ORDER TO FURTHER WORK-UP THE ACUTE ILLNESS. NAUSEA EMESIS AND DIARRHEA - PT WITH RECENT GI SYMPTOMS - SHE HAS RESOLUTION OF DIARRHEA - BUT IS ADMITTED TO THE HOSPTIAL FOR FURTHER TREATMENT OF HER PNEUMONIA AND WILL ORDER FLUIDS FOR REHYDRATION. . PNEUMONIA-HYPOXEMIA- PT IS CLINICALLY SYMPTOMATIC FOR PNEUMONIA - A CHEST XRAY, SPUTUM C AND S, BLOOD CULTURES, AND LABS HAVE BEEN ORDERED IN ORDER TO FURTHER WORK-UP THE ACUTE ILLNESS. . Sinusitis - Pt has acute infection - pain in face, maxillary region, Pt informed to use decongestant, RX given to patient, sinus rinses also recommended. Call if symptoms do not show improvement.
--- OUTSIDE RECORDS SUMMARY | 2017-04-27 16:14 | XMS REPORT | CCD ---
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 Unknown Has never used illegal drugs 10/03/2012 Allergies, Adverse Reactions, Alerts Allergies, Adverse Reactions, Alerts data not found Past Medical History Illness Codes Condition Status Onset Date Resolved Date Acute laryngopharyngitis ICD-9: 465.0 ICD-10: J06.0 Active 12/11/2015 Unknown Cough ICD-9: 786.2 ICD-10: R05 Active 05/01/2015 Unknown Other acute sinusitis ICD-9: 461.8 ICD-10: J01.80 Active 11/25/2015 Unknown Other allergic rhinitis ICD-9: 477.8 ICD-10: J30.89 Active 01/25/2016 Unknown Abrasion of vagina and vulva, initial encounter ICD-9: 911.0 ICD-10: S30.814A Active 11/25/2016 Unknown Encounter for gynecological examination (general) (routine ) without abnormal findings ICD-9: V72.31 ICD-10: Z01.419 Active 11/25/2016 Unknown Allergic rhinitis due to pollen ICD-9: 477.0 ICD-10: J30.1 Active 07/09/2016 Unknown Low back pain ICD-9: 724.2 ICD-10: M54.5 Active 07/09/2016 Unknown Acute recurrent maxillary sinusitis ICD-9: 461.0 ICD-10: J01.01 Active 06/24/2015 Unknown Acute upper respiratory infection, unspecified ICD-9: 465.9 ICD-10: J06.9 Active 06/24/2015 Unknown Other allergic rhinitis ICD-9: 477.9 ICD-10: J30.89 Active 06/24/2015 Unknown Other obesity due to excess calories ICD-9: 278.00 ICD-10: E66.09 Active 06/24/2015 Unknown Encounter for follow-up examination after completed [...] Problems Condition Codes Effective Dates Condition Status Acute laryngopharyngitis ICD-9: 465.0 ICD-10: J06.0 12/11/2015 Active Cough ICD-9: 786.2 ICD-10: R05 05/01/2015 Active Other acute sinusitis ICD-9: 461.8 ICD-10: J01.80 11/25/2015 Active Other allergic rhinitis ICD-9: 477.8 ICD-10: J30.89 01/25/2016 Active Abrasion of vagina and vulva, initial encounter ICD-9: 911.0 ICD-10: S30.814A 11/25/2016 Active Encounter for gynecological examination (general) (routine ) without abnormal findings ICD-9: V72.31 ICD-10: Z01.419 11/25/2016 Active Allergic rhinitis due to pollen ICD-9: 477.0 ICD-10: J30.1 07/09/2016 Active Low back pain ICD-9: 724.2 ICD-10: M54.5 07/09/2016 Active Acute recurrent maxillary sinusitis ICD-9: 461.0 ICD-10: J01.01 06/24/2015 Active Acute upper respiratory infection, unspecified ICD-9: 465.9 ICD-10: J06.9 06/24/2015 Active Other allergic rhinitis ICD-9: 477.9 ICD-10: J30.89 06/24/2015 Active Other obesity due to excess calories ICD-9: 278.00 ICD-10: E66.09 06/24/2015 Active Encounter for follow-up examination after completed [...] Start Date Stop Date Status Fill Instructions Augmentin 875 mg-125 mg tablet RxNorm: 899201 1 Tablet(s) PO BID 04/06/2017 04/15/2017 Active Zyrtec 10 mg tablet RxNorm: 8872782 1 TABLET(S) PO DAILY 03/0712/01/2017 Active losartan 100 mg-hydrochlorothiazide 12.5 mg tablet RxNorm: 906862 1 TABLET(S) PO DAILY 02/10/2017 09/07/2017 Active ProAir HFA 90 mcg/actuation aerosol inhaler RxNorm: 241247 1-2 INH PRN shortness of breath 11/25/2016 No Stop Date Active Flonase Allergy Relief 50 mcg/actuation nasal spray, suspension RxNorm: 6352916 1 SPRAY NASAL BID 09/16/2016 No Stop Date Active prednisone 20 mg tablet RxNorm: 292909 1 Tablet(s) PO BID 07/1207/11/2016 Inactive Augmentin 875 mg-125 mg tablet RxNorm: 330808 1 Tablet(s) PO BID 07/12/2016 07/18/2016 Inactive prednisone 20 mg tablet RxNorm: 613840 1 Tablet(s) PO BID 07/1207/16/2016 Inactive Kenalog 40 mg/mL suspension for injection RxNorm: 3424237 1.5 Milliliter(s) Inj 07/09/2016 07/09/2016 Inactive losartan 100 mg-hydrochlorothiazide 12.5 mg tablet RxNorm: 968208 1 Tablet(s) PO daily 06/10/2016 02/04/2017 Inactive Flonase Allergy Relief 50 mcg/actuation nasal spray, suspension RxNorm: 6032325 1 SPRAY NASAL BID 05/07/20162016 Inactive Flonase Allergy Relief 50 mcg/actuation nasal spray, suspension RxNorm: 8922768 1 SPRAY NASAL BID 02/19/20162016 Inactive Levaquin 500 mg tablet RxNorm: 312112 1 Tablet(s) PO daily 08/201502/03/2016 Inactive Flonase Allergy Relief 50 mcg/actuation nasal spray, suspension RxNorm: 5690158 1 [place] NASAL BID 01/26/20162015 Inactive Zyrtec 10 mg tablet RxNorm: 1650182 1 Tablet(s) PO daily 01/2511/20/2016 Inactive albuterol sulfate 2.5 mg/3 mL (0.083 %) solution for nebulization RxNorm: 077801 1 Milliliter(s) INH 12/12/20152016 Inactive Zyrtec 10 mg tablet RxNorm: 6838210 1 Tablet(s) PO daily 12/1101/10/2016 Inactive Augmentin 875 mg-125 mg tablet RxNorm: 819177 1 Tablet(s) PO BID 12/12/2015 12/21/2015 Inactive Levaquin 500 mg tablet RxNorm: 094504 1 Tablet(s) PO daily 06/201512/02/2015 Inactive Diflucan 150 mg tablet RxNorm: 744212 1 Tablet(s) PO daily start after finished with levaquin 11/26/2015 11/30/2015 Inactive Kenalog 40 mg/mL suspension for injection RxNorm: 9117410 1 Milliliter(s) Inj 11/26/2015 11/26/2015 Inactive losartan 100 mg-hydrochlorothiazide 12.5 mg tablet RxNorm: 351196 1 Tablet(s) PO daily 06/30/2015 06/09/2016 Inactive Augmentin 875 mg-125 mg tablet RxNorm: 557043 1 Tablet(s) PO BID 06/25/2015 07/04/2015 Inactive Kenalog 40 mg/mL suspension for injection RxNorm: 5115437 Milliliter(s) Inj 06/25/2015 06/25/2015 Inactive Levaquin 500 mg tablet RxNorm: 265358 1 Tablet(s) PO daily 04/21/2015 Inactive prednisone 20 mg tablet RxNorm: 228885 2 Tablet(s) PO daily 04/19/2015 Inactive Augmentin 875 mg-125 mg tablet RxNorm: 472762 1 Tablet(s) PO BID 03/11/2015 03/17/2015 Inactive Kenalog 40 mg/mL suspension for injection RxNorm: 6328164 Milliliter(s) Inj 03/11/2015 03/11/2015 Inactive losartan 100 mg-hydrochlorothiazide 12.5 mg tablet RxNorm: 620809 1 TABLET(S) DAILY 1 TABLET(S) PO DAILY 02/11/2015 Inactive losartan 100 mg-hydrochlorothiazide 12.5 mg tablet RxNorm: 416053 1 TABLET(S) DAILY 1 TABLET(S) PO DAILY 10/10/2014 Inactive Kenalog 40 mg/mL suspension for injection RxNorm: 0512628 Milliliter(s) Inj 09/03/2014 09/03/2014 Inactive amoxicillin 500 mg tablet RxNorm: 436450 1 Tablet(s) PO TID 09/12/2014 Inactive Kenalog 40 mg/mL suspension for injection RxNorm: 2722156 2 Milliliter(s) Inj 05/27/2014 05/27/2014 Inactive prednisone 10 mg tablet RxNorm: 905210 6pills days #1-3, 4pills days #4-6, 2pills days#7-9, 1pill days #10-13, 1/2 pill every other day x4 doses then stop taper 05/27/2014 11/25/2015 Inactive losartan 100 mg-hydrochlorothiazide 12.5 mg tablet RxNorm: 874523 1 Tablet(s) daily 1 TABLET(S) PO DAILY 05/06/201401/2015 Inactive estradiol 0.5 mg tablet RxNorm: 465026 1 Tablet(s) PO BID 04/3011/24/2016 Inactive Kenalog 40 mg/mL suspension for injection RxNorm: 5356516 Milliliter(s) Inj 04/04/2014 04/04/2014 Inactive sulfamethoxazole 800 mg-trimethoprim 160 mg tablet RxNorm: 260276 1 Tablet(s) PO BID 04/04/2014 04/13/2014 Inactive losartan 100 mg-hydrochlorothiazide 12.5 mg tablet RxNorm: 002593 1 TABLET(S) PO DAILY 11/05/2013 04/03/2014 Inactive Flagyl 500 mg tablet RxNorm: 493712 1 Tablet(s) PO TID 201310/20/2013 Inactive ciprofloxacin 500 mg tablet RxNorm: 688515 1 Tablet(s) PO BID 10/16/2013 10/22/2013 Inactive fluconazole 150 mg tablet RxNorm: 897487 1 Tablet(s) PO every other day 10/16/2013 10/24/2013 Inactive Lipitor 10 mg tablet RxNorm: 916330 1 TABLET(S) PO QPM TAKE 1 TABLET BY MOUTH DAILY 10/08/2013 10/08/2013 Inactive Lipitor 10 mg tablet RxNorm: 389452 1 Tablet(s) PO QPM TAKE 1 TABLET BY MOUTH DAILY 07/05/2013 10/02/2013 Inactive Lipitor 10 mg tablet RxNorm: 890422 Tablet(s) PO TAKE 1 TABLET BY MOUTH DAILY 07/05/2013 10/02/2013 Inactive Lipitor 10 mg tablet RxNorm: 233779 Tablet(s) PO TAKE 1 TABLET BY MOUTH DAILY 06/04/2013 07/04/2013 Inactive losartan 100 mg-hydrochlorothiazide 12.5 mg tablet RxNorm: 538153 1 Tablet(s) PO daily 05/16/2013 11/04/2013 Inactive Lipitor 10 mg tablet RxNorm: 108319 1 Tablet(s) PO daily 201210/05/2012 Inactive Lipitor 10 mg tablet RxNorm: 081328 1 Tablet(s) PO daily 201205/03/2013 Inactive losartan 100 mg-hydrochlorothiazide 12.5 mg tablet RxNorm: 397251 1 Tablet(s) PO daily No Start Date 05/15/2013 Inactive Medication Administered Medication Codes Instructions Start Date Status Kenalog 40 mg/mL suspension for injection RxNorm: 9489248 1.5Milliliter 07/09/2016 No longer Active Kenalog 40 mg/mL suspension for injection RxNorm: 6218608 1Milliliter 11/26/2015 No longer Active Kenalog 40 mg/mL suspension for injection RxNorm: 7751935 Milliliter 06/25/2015 No longer Active Kenalog 40 mg/mL suspension for injection RxNorm: 0600563 Milliliter 03/11/2015 No longer Active Kenalog 40 mg/mL suspension for injection RxNorm: 9185155 Milliliter 09/03/2014 No longer Active Kenalog 40 mg/mL suspension for injection RxNorm: 0614146 2Milliliter 05/27/2014 No longer Active Kenalog 40 mg/mL suspension for injection RxNorm: 6569372 Milliliter 04/04/2014 No longer Active Immunizations No Immunization data Assessments Condition Codes Effective Dates Acute laryngopharyngitis ICD-10: J06.0 ICD-9: 465.0 04/06/2017 Cough ICD-10: R05 ICD-9: 786.2 04/06/2017 Other allergic rhinitis ICD-10: J30.89 ICD-9: 477.8 04/06/2017 Encounter for gynecological examination (general) (routine) without abnormal findings ICD-10: Z01.419 ICD-9: V72.31 11/25/2016 Abrasion of vagina and vulva, initial encounter ICD-10: S30.814A ICD-9: 911.0 11/25/2016 Allergic rhinitis due to pollen ICD-10: J30.1 ICD-9: 477.0 07/09/2016 Low back pain ICD-10: M54.5 ICD-9: 724.2 07/09/2016 Other acute sinusitis ICD-10: J01.80 ICD-9: 461.8 11/26/2015 Other obesity due to excess calories ICD-10: E66.09 ICD-9: 278.00 06/25/2015 Acute upper respiratory infection, unspecified ICD-10: J06.9 ICD-9: 465.9 06/25/2015 Acute recurrent maxillary sinusitis ICD-10: J01.01 ICD-9: 461.0 06/25/2015 Other allergic rhinitis ICD-10: J30.89 ICD-9: 477.9 06/25/2015 Unspecified bacterial pneumonia ICD-10: J15.9 ICD-9: 482.9 05/02/2015 Encounter for follow-up examination after completed treatment for conditions other than malignant neoplasm ICD-10: Z09 ICD-9: V67.59 05/02/2015 Other specified noninfective gastroenteritis and colitis ICD -10: K52.89 ICD-9: 558.9 05/02/2015 Nausea with vomiting, unspecified ICD-10: R11.2 ICD-9: 787.01 04/21/2015 Hypoxemia ICD-10: R09.02 ICD-9: 799.02 04/21/2015 Other acute sinusitis ICD-10: J01.80 ICD-9: 461.9 04/15/2015 ALLERGIC RHINITIS ICD-9: 477.9 2014 ACUTE SINUSITIS ICD-9: 461.9 09/03/2014 Islam tenderness ICD-9: 784.0 2014 Sudden visual loss of left eye ICD-9: 368.11 05/27/2014 ESSENTIAL HYPERTENSION ICD-9: 401.9 04/30 MALAISE AND FATIGUE ICD-9: 780.79 2014 Menopausal symptoms ICD-9: 627.2 2014 ACUTE FRONTAL SINUSITIS ICD-9: 461.1 01/2015 COUGH ICD-9: 786.2 04/04/2014 Ovarian mass ICD-9: 620.9 12/04/2013 Uterine fibroid ICD-9: 218.9 12/04/2013 Abdominal pain ICD-9: 789.00 12/04/2013 Diarrhea ICD-9: 787.91 10/25/2013 DYSURIA ICD-9: 788.1 10/16/2013 Hyperlipidemia ICD-9: 272.4 07/30/2013 ROUTINE GYNE EXAM ICD-9: V72.31 2012 OBESITY ICD-9: 278.00 10/03/2012 Reason For Visit Reason For Visit Effective Dates Notes cough 04/06/2017 vaginal bleeding 11/25/2016 sinus congestion 07/09/2016 sinus [...] System Result Effective Dates Constitutional recent illness 04/06/2017 Constitutional No chills 04/06/2017 Constitutional No diaphoresis 04/06/2017 Constitutional No fever 04/06/2017 Eyes No eye erythema 04/06/2017 Ears/Nose/Throat/Neck nasal allergies Ears/Nose/Throat/Neck nasal discharge Ears/Nose/Throat/Neck postnasal drip Ears/Nose/Throat/Neck sinus congestion Ears/Nose/Throat/Neck sore throat 2017 Cardiovascular No chest pain/pressure Cardiovascular No dyspnea 04/06/2017 Respiratory No chest congestion 2017 Respiratory cough 04/06/2017 Respiratory No dyspnea 04/06/2017 Gastrointestinal No abdominal pain 2017 Gastrointestinal No constipation 2017 Gastrointestinal No diarrhea 04/06/2017 Gastrointestinal No nausea 04/06/2017 Gastrointestinal No vomiting 04/06/2017 Dermatologic No rash 04/06/2017 Neurologic No alteration of consciousness 04/06/2017 Neurologic No mental status change 2017 Constitutional recent illness 11/25/2016 Constitutional No night [...] Result Effective Dates Notes Full Exam - ENT Constitutional general appearance Overall: well nourished 04/06/2017 None Full Exam - ENT Constitutional general appearance Overall: well developed 04/06/2017 None Full Exam - ENT Constitutional general appearance Overall: in no acute distress 04/06/2017 None Full Exam - ENT Ears/Nose/Throat otoscopic exam Overall: external auditory canals normal 04/06/2017 None Full Exam - ENT Ears/Nose/Throat otoscopic exam Left tympanic membrane: air -fluid level 04/06/2017 None Full Exam - ENT Ears/Nose/Throat nasal mucosa, septum, turbinates Drainage: clear 04/06/2017 None Full Exam - ENT Ears/Nose/Throat nasal mucosa, septum, turbinates Drainage: yellow 04/06/2017 None Full Exam - ENT Ears/Nose/Throat lips/ teeth/gingiva Overall: benign lips 04/06/2017 None Full Exam - ENT Ears/Nose/Throat oropharynx Posterior Pharynx: clear post nasal drainage 04/06/2017 None Full Exam - ENT Face and Head palpation Left maxillary sinus: tender 04/06/2017 None Full Exam - ENT Face and Head palpation Right maxillary sinus: tender 04/06/2017 None Full Exam - ENT Respiratory inspection Overall: no retractions 04/06/2017 None Full Exam - ENT Respiratory inspection Overall: normal rate None Full Exam - ENT Respiratory auscultation Overall: breath sounds clear bilaterally 04/06/2017 None Full Exam - ENT Cardiovascular auscultation of heart Overall: regular rate 04/06/2017 None Full Exam - ENT Cardiovascular auscultation of heart Overall: normal heart sounds 04/06/2017 None Full Exam - ENT Lymphatic palpation of lymph nodes Overall: anterior cervical chain benign 04/06/2017 None Full Exam - ENT Lymphatic palpation of lymph nodes Overall: posterior cervical chain benign 04/06/2017 None Full Exam - ENT Neurologic mood and affect Overall: normal mood 04/06/2017 None Full Exam - ENT Neurologic mood and affect Overall: normal affect 04/06/2017 None Full Exam - ENT Neurologic orientation Overall: oriented to person, place and time 04/06/2017 None Full Exam - ENT Ears/Nose/Throat otoscopic exam Right tympanic membrane: bulging 04/06/2017 None Full Exam - ENT Ears/Nose/Throat oropharynx Posterior Pharynx: erythema 04/06/2017 None Full Exam - General 1994 Constitutional [...] clear 10/16/2013 None Full Exam - General 1995 Ears/Nose/Throat [...] time 10/26/2012 None Full Exam - General 1994 Psychiatric mood and affect Mood: happy 10/03/2012 None Full Exam - General 1994 Psychiatric mood and affect Overall: normal mood and affect 10/03/2012 None Full Exam - General 1994 [...] consistency 10/03/2012 None Full Exam - General 1994 [...] CPT-4: J3301 09/03/2014 THER/PROPH/DIAG INJ SC/IM CPT-4: 66870 04/04/2014 TRIAMCINOLONE ACET INJ NOS CPT-4: J3301 04/04/2014 C URINE RT (URINE CULTURE/COLONY COUNT) CPT-4: 66427 10/16/2013 URINALYSIS NONAUTO W/O SCOPE CPT-4: 77986 10/16/2013 PREV VISIT EST AGE 40-64 CPT-4: 72102 10/26/2012 Vital Signs Date Vital 04/06/2017 Blood Pressure 1: 120/64 Code : 8480-6 BMI: 37.6 Code : 81199-3 Heart Rate 1 : 101 bpm Height: 5'8" SpO2: 97% Weight: 251 lbs 11/25/2016 Blood Pressure 1: 134/94 Code : 8480-6 BMI: 37.5 Code : 47306-4 Heart Rate 1 : 78 bpm Height: 5'8" SpO2: 95% Weight: 250 lbs 07/09/2016 Blood Pressure 1: 138/90 Code : 8480-6 BMI: 37.9 Code : 51046-2 Heart Rate 1 : 84 bpm Height: 5'8" SpO2: 98% Weight: 253 lbs 01/26/2016 Blood Pressure 1: 138/88 Code : 8480-6 BMI: 37.8 Code : 72944-0 Heart Rate 1 : 72 bpm Height: 5'8" SpO2: 97% Weight: 252 lbs 12/12/2015 Blood Pressure 1: 124/80 Code : 8480-6 BMI: 37.8 Code : 45119-5 Heart Rate 1 : 99 bpm Height: 5'8" SpO2: 97% Weight: 252 lbs 11/26/2015 Blood Pressure 1: 164/100 Code: 8480-6 Blood Pressure 1: 128/82 Code: 8480-6 BMI: 38.8 Code: 11231-5 Heart Rate 1: 84 bpm Height: 5'8" SpO2: 97% Weight: 259 lbs 06/25/2015 Blood Pressure 1: 120/84 Code : 8480-6 BMI: 38.1 Code : 12900-9 Heart Rate 1 : 88 bpm Height: 5'8" SpO2: 97% Weight: 254 lbs 05/02/2015 Blood Pressure 1: 124/90 Code : 8480-6 Heart Rate 1: 98 bpm Height: SpO2: 97% Temperature: 36.8 (C) / 98.2 (F) Weight: 04/21/2015 Blood Pressure 1: 108/68 Code : 8480-6 BMI: 36.6 Code : 29793-4 Heart Rate 1 : 103 bpm Height: 5'8" SpO2: 87% Temperature: 37.5 (C) / 99.5 (F) Weight: 244 lbs 04/15/2015 Blood Pressure 1: 146/100 Code: 8480-6 BMI: 37.5 Code: 64267-9 Heart Rate 1: 96 bpm Height: 5'8" Weight: 250 lbs 03/11/2015 Blood Pressure 1: 126/78 Code : 8480-6 BMI: 37.8 Code : 95132-4 Heart Rate 1 : 68 bpm Height: 5'8" Respiratory Rate: 18 bpm SpO2: 97% Temperature: 36.7 (C) / 98.0 (F ) Weight: 252 lbs 09/03/2014 Blood Pressure 1: 130/92 Code : 8480-6 BMI: 37.6 Code : 79892-8 Heart Rate 1 : 84 bpm Height: 5'8" Temperature: 37.1 (C) / 98.7 (F) Weight: 251 lbs 05/27/2014 Blood Pressure 1: 128/80 Code : 8480-6 BMI: 37.3 Code : 06448-2 Heart Rate 1 : 84 bpm Height: 5'8" Weight: 249 lbs 04/30/2014 Blood Pressure 1: 130/78 Code : 8480-6 BMI: 37.3 Code : 67483-2 Heart Rate 1 : 88 bpm Height: 5'8" Weight: 249 lbs 04/04/2014 Blood Pressure 1: 122/76 Code : 8480-6 BMI: 37.6 Code : 32064-0 Heart Rate 1 : 72 bpm Height: 5'8" Temperature: 36.7 (C) / 98.1 (F) Weight: 251 lbs 12/04/2013 Blood Pressure 1: 132/88 Code : 8480-6 BMI: 38.4 Code : 96436-7 Heart Rate 1 : 81 bpm Height: 5'8" SpO2: 98% Weight: 256 lbs 10/25/2013 Blood Pressure 1: 122/76 Code : 8480-6 BMI: 37.8 Code : 34880-0 Heart Rate 1 : 88 bpm Height: 5'8" SpO2: 96% Weight: 252 lbs 10/16/2013 Blood Pressure 1: 124/88 Code : 8480-6 BMI: 38.5 Code : 09401-1 Heart Rate 1 : 84 bpm Height: 5'8" Weight: 257 lbs 07/30/2013 Blood Pressure 1: 130/80 Code : 8480-6 BMI: 39.0 Code : 51278-3 Heart Rate 1 : 88 bpm Height: 5'8" Weight: 260 lbs 10/26/2012 Blood Pressure 1: 112/84 Code : 8480-6 BMI: 37.2 Code : 14420-5 Heart Rate 1 : 80 bpm Height: 5'8" Weight: 248 lbs 10/03/2012 Blood Pressure 1: 136/94 Code : 8480-6 BMI: 37.3 Code : 61086-9 Heart Rate 1 : 76 bpm Height: 5'8" Weight: 249 lbs Functional Status No Functional Status data History of Present Illness Symptom Name Status Result Effective Date Notes cough Location in the throat 04/06/2017 None cough Quality constant 04/06/2017 None cough Quality dry None cough Onset and Resolution sudden in onset 04/06/2017 None cough Onset of Symptom 2 days ago 04/06/2017 None cough Frequency of Episodes daily 04/06/2017 None sore throat Location diffusely 04/06/2017 None sore throat Quality aching 04/06/2017 None sore throat Quality scratchy 04/06/2017 None sore throat Quality constant 04/06/2017 None sore throat Onset and Resolution sudden in onset 04/06/2017 None sore throat Onset of Symptom 1 days ago 04/06/2017 None sore throat Frequency of Episodes daily 04/06/2017 None vaginal bleeding Quality acute 11/25/2016 None vaginal [...] data Encounters Encounter Performer Location Codes Date 21817 EST. PATIENT, LEVEL IV Diagnosis: Acute laryngopharyngitis[ICD10: J06.0] Diagnosis: Cough[ICD10: R05] Diagnosis: Other allergic rhinitis[ICD10: J30.89] [facility] CPT-4: 53739 04/06/2017 ([id number]) PREV VISIT EST AGE 40-64 Diagnosis: Encounter for gynecological examination (general) (routine) without abnormal findings[ICD10: Z01.419] [facility] CPT-4: 66157 11/25/2016 ([id number]) 67178 EST. PATIENT, LEVEL III Diagnosis: Low back pain[ICD10: M54.5] Diagnosis: Allergic rhinitis due to pollen[ICD10: J30.1] [facility] CPT-4: 81470 07/09/2016 95927 EST. PATIENT, LEVEL III Diagnosis: Other allergic rhinitis[ICD10: J30.89] Janie Preciado MD [facility] CPT-4: 71435 01/26/2016 81073 EST. PATIENT, LEVEL IV Diagnosis: Other allergic rhinitis[ICD10: J30.89] Diagnosis: Acute laryngopharyngitis[ICD10: J06.0] Janie Preciado MD [facility] CPT-4: 38480 12/12/2015 71071 EST. PATIENT, LEVEL IV Diagnosis: Other acute sinusitis[ICD10: J01.80] Diagnosis: Acute laryngopharyngitis[ICD10: J06.0] Diagnosis: Other allergic rhinitis[ICD10: J30.89] Janie Preciado MD, [facility] CPT-4: 20037 11/26/2015 33400 EST. PATIENT, LEVEL IV Diagnosis: Acute recurrent maxillary sinusitis[ICD10: J01.01] Diagnosis: Acute upper respiratory infection, unspecified[ICD10: J06.9] Diagnosis: Other allergic rhinitis[ICD10: J30.89] Diagnosis: Other obesity due to excess calories[ICD10: E66.09] Ibis Preciado MD, [facility] CPT-4: 34636 06/25/2015 65769 EST. PATIENT, LEVEL III Diagnosis: Cough[ICD10: R05] Diagnosis: Unspecified bacterial pneumonia[ICD10: J15.9] Diagnosis: Encounter for follow-up examination after completed treatment for conditions other than malignant neoplasm[ICD10: Z09] Diagnosis: Other specified noninfective gastroenteritis and colitis[ICD10: K52.89] Sabrina Preciado MD, [facility] CPT-4: 89730 12/2015 ([id number]) Patient admitted to the hospital from clinic (NO CHARGE) Diagnosis: Cough[ICD10: R05] Diagnosis: Unspecified bacterial pneumonia[ICD10: J15.9] Diagnosis: Hypoxemia[ICD10: R09.02] Diagnosis: Nausea with vomiting, unspecified[ICD10: R11.2] Ibis Preciado MD, [facility] CPT-4: 51328R 04/21/2015 51611 EST. PATIENT, LEVEL IV Diagnosis: Other acute sinusitis[ICD10: J01.80] Diagnosis: Cough[ICD10: R05] Diagnosis: Acute upper respiratory infection, unspecified[ICD10: J06.9] Janie Preciado MD [facility] CPT-4: 85388 04/15/2015 ([id number]) 23565 EST. PATIENT, LEVEL III Diagnosis: Acute recurrent maxillary sinusitis[ICD10: J01.01] Ibis Preciado MD [facility] CPT-4: 58524 03/11/2015 ([id number]) 13908 EST. PATIENT, LEVEL III Diagnosis: ACUTE SINUSITIS[ICD9: 461.9] Diagnosis: ALLERGIC RHINITIS[ICD9: 477.9] Sabrina Preciado MD [facility] CPT-4: 25618 09/03/2014 ([id number]) 43365 EST. PATIENT, LEVEL IV Diagnosis: Sudden visual loss of left eye[ICD9: 368.11] Diagnosis: Islam tenderness[ICD9: 784.0] Ibis Preciado MD [facility] CPT- 4: 48170 05/27/2014 ([id number]) 26882 EST. PATIENT, LEVEL IV Diagnosis: Menopausal symptoms[ICD9: 627.2] Diagnosis: ESSENTIAL HYPERTENSION[ICD9: 401.9] Diagnosis: MALAISE AND FATIGUE[ICD9: 780.79] Ibis Preciado MD [facility] CPT-4: 04402 04/30/2014 ([id number]) 52921 EST. PATIENT, LEVEL III Diagnosis: ACUTE FRONTAL SINUSITIS[ICD9: 461.1] Diagnosis: HEADACHE[ICD9: 784.0] Diagnosis: COUGH[ICD9: 786.2] Ibis Preciado MD, [facility] CPT-4: 55624 04/04/2014 ([id number]) 81964 EST. PATIENT, LEVEL III Diagnosis: Ovarian mass[ICD9: 620.9] Diagnosis: Uterine fibroid[ICD9: 218.9] Diagnosis: Abdominal pain[ICD9: 789.00] Ibis Preciado MD, [facility] CPT- 4: 15807 12/04/2013 ([id number]) 81817 EST. PATIENT, LEVEL III Diagnosis: Abdominal pain[ICD9: 789.00] Diagnosis: Diarrhea[ICD9: 787.91] [facility] CPT-4: 14452 10/25/2013 ([id number]) 69383 EST. PATIENT, LEVEL III Diagnosis: DYSURIA[ICD9: 788.1] JOLYNN Michel MD CPT-4: 06809 10/16/2013 ([id number]) 71026 EST. PATIENT, LEVEL III Diagnosis: ESSENTIAL HYPERTENSION[SNOMED: 45055916] Diagnosis: Hyperlipidemia[ICD9: 272.4] Ibis Preciado MD, [facility] CPT- 4: 48374 07/30/2013 ([id number]) OFFICE VISIT, NEW - LEVEL 3 Diagnosis: ESSENTIAL HYPERTENSION[SNOMED: 73168928] Diagnosis: OBESITY[ICD9: 278.00] Diagnosis: Abdominal pain[ICD9: 789.00] [facility] CPT- 4: 01248 10/03/2012 Plan of Care Planned Activity Notes Codes Status Date Visit Plan: URI - Pt advised to increase fluids, vitamin C. Discussed natural and expected course of this diagnosis and need to alert me if symptoms do not follow expected course, or if any worse. RX sent to patient' s pharmacy. Allergies - chronic - recommended pt [...] spray in the nasal steroid allergy spray. 04/06/2017 Appointment: Janie Grayson WPtel: [address] [place], [place] [id number] (15 min) Moderate 04/06/2017 Patient Education: Patient Medication Summary Completed 04/06/2017 Visit Plan: Well Adult - pt was [...] with intercourse. 11/25/2016 Appointment[facility] Prec[phone] [facility] (15 min) Moderate 11/25/2016 Patient Education: Patient [...] epidural injection. 07/09/2016 App[facility]ment: [phone] [phone] [place] (30 min) Complex 07/09/2016 Patient Education: Patient Medication Summary Completed 07/09/2016 Care Plan: Referral Order history of ruptured disc L5-S1- had injections 8 or 9 years ago that were helpful SNOMED-CT : 085875146 Pending 07/09/2016 Visit Plan: Allergies - chronic [...] patient's pharmacy. 12/12/2015 Appointment: Sabrina Davidson WPtel: [address] [place], [place] [phone] (10 min) Simple 12/12/2015 Patient Education: Patient [...] allergy spray. 11/26/2015 Appointment: Sabrina Davidson WPtel: [address] [place], [place] [phone] (15 min) Moderate 11/26/2015 Patient Education: Patient [...] any worse 05/02/2015 Appointment: Sab[facility] Davidson [facility]el[facility] [phone] [phone] (15 min) Moderate 05/02/2015 Patient Education: Patient [...] the office 03/11/2015 Appointment: Sabrina Davidson WPtel: [facility] [place] [phone] (15 min) Moderate 03/11/2015 Patient Education: Patient Medication Summary Completed 03/11/2015 Visit Plan: Sinusitis - Pt has acute infection - pain in face, maxillary region, Pt informed to use decongestant, RX given to patient, sinus rinses also recommended. Call if symptoms do not show improvement. 09/03/2014 Appointment: Sabrina Davidson WPtel: [phone] (15 min) Moderate 09/03/2014 Patient Education: Patient [...] aging process. 05/27/2014 Appointment: Ibis Preciado WPtel: [address] [place] [address] Follow up 05/27/2014 Patient Education: Patient Medication [...] at home. 04/30/2014 Appointment: Ibis Preciado WPtel: [facility] Follow up 04/30/2014 Patient Education: Patient Medication Summary Completed 04/30/2014 Patient Education: Hypertension Completed 04/30/2014 Visit Plan: Sinusitis - Pt has acute infection - pain in face, maxillary region, Pt informed to use decongestant, RX given to patient, sinus rinses also recommended. Call if symptoms do not show improvement. 04/04/2014 Appointment: Ibis Preciado WPtel: [facility] Sick 04/04/2014 Patient Education: Patient Medication Summary Completed 04/04/2014 Visit Plan: Mass in right ovary - discussed report results with the patient - appt with Dr. Curry - 12/11/13 @ 1100 12/04/2013 Appointment: Ibis Preciado WPtel: [address] [place] [address] Follow up 12/04/2013 Patient Education: Patient Medication Summary Completed 12/04/2013 Visit Plan: Abdominal pain, diarrhea - recommended pt to finish antibiotic, monitor I/O, start on probiotics,, and check scan of abdomen. 10/25/2013 Appointment: Ibis Preciado WPtel: [address] [place], [place] [phone] Sick 10/25/2013 Patient Education: Patient Medication Summary Completed 10/25/2013 Visit Plan: UTI - pt with positive urinalysis - culture sent if appropriate. Antibiotic electronically prescribed to pt's pharmacy of choice. Pt to call if symptoms do not improve. 10/16/2013 Appointment: Ibis Preciado WPtel: [address] [place] [address] 10/16/2013 Patient Education: Patient Medication Summary Completed [...] medications. 07/30/2013 Appointment: Sabrina Davidson WPtel: [phone] [phone] Follow up 07/30/2013 Patient Education: Patient Medication [...] prn. 10/26/2012 Appointment: Ibis Preciado WPtel: [phone] [facility] Pap Only 10/26/2012 Patient Education: Patient [...] abdominal discomfort. 10/03/2012 Appointment: Ibis Preciado WPtel: [phone] [facility] New Patient 10/03/2012 Patient Education: Patient Medication [...] to help decrease friction with intercourse. . URI - Pt advised to increase [...] treatment needed-call with any questions or concerns Emjyhmyr-pgylfsyy-ngysmfut probiotics as directed-call if diarrhea does not [...]
--- OUTSIDE RECORDS SUMMARY | 2017-04-27 16:16 | XMS REPORT | CCD ---
Author Author Ibis Preciado Organization Ibis Preciado MD, 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/[address]: 171834249 Never smoker 10/03/[address]: 170975477 Never drinks alcohol 10/03/2012 Has the patient [...] Instructions Augmentin 875 mg-125 mg tablet RxNorm: 894691 1 Tablet(s) PO BID 04/06/2017 04/15/2017 Active Zyrtec 10 mg tablet RxNorm: 6678008 1 TABLET(S) PO DAILY 03/0712/01/2017 Active losartan 100 mg-hydrochlorothiazide 12.5 mg tablet RxNorm: 001410 1 TABLET(S) PO DAILY 02/10/2017 09/07/2017 Active ProAir HFA 90 mcg/actuation aerosol inhaler RxNorm: 242787 1-2 INH PRN shortness of breath 11/25/2016 No Stop Date Active Flonase Allergy Relief 50 mcg/actuation nasal spray, suspension RxNorm: 1879465 1 SPRAY NASAL BID 09/16/2016 No Stop Date Active prednisone 20 mg tablet RxNorm: 466419 1 Tablet(s) PO BID 07/1207/11/2016 Inactive Augmentin 875 mg-125 mg tablet RxNorm: 467318 1 Tablet(s) PO BID 07/12/2016 07/18/2016 Inactive prednisone 20 mg tablet RxNorm: 486103 1 Tablet(s) PO BID 07/1207/16/2016 Inactive Kenalog 40 mg/mL suspension for injection RxNorm: 3099945 1.5 Milliliter(s) Inj 07/09/2016 07/09/2016 Inactive losartan 100 mg-hydrochlorothiazide 12.5 mg tablet RxNorm: 153686 1 Tablet(s) PO daily 06/10/2016 02/04/2017 Inactive Flonase Allergy Relief 50 mcg/actuation nasal spray, suspension RxNorm: 6699059 1 SPRAY NASAL BID 05/07/20162016 Inactive Flonase Allergy Relief 50 mcg/actuation nasal spray, suspension RxNorm: 4496459 1 SPRAY NASAL BID 02/19/20162016 Inactive Levaquin 500 mg tablet RxNorm: 638546 1 Tablet(s) PO daily 08/201502/03/2016 Inactive Flonase Allergy Relief 50 mcg/actuation nasal spray, suspension RxNorm: 1620918 1 Geary NASAL BID 01/26/20162015 Inactive Zyrtec 10 mg tablet RxNorm: 6988731 1 Tablet(s) PO daily 01/2511/20/2016 Inactive albuterol sulfate 2.5 mg/3 mL (0.083 %) solution for nebulization RxNorm: 588891 1 Milliliter(s) INH 12/12/20152016 Inactive Zyrtec 10 mg tablet RxNorm: 7922822 1 Tablet(s) PO daily 12/1101/10/2016 Inactive Augmentin 875 mg-125 mg tablet RxNorm: 908900 1 Tablet(s) PO BID 12/12/2015 12/21/2015 Inactive Levaquin 500 mg tablet RxNorm: 884600 1 Tablet(s) PO daily 06/201512/02/2015 Inactive Diflucan 150 mg tablet RxNorm: 175991 1 Tablet(s) PO daily start after finished with levaquin 11/26/2015 11/30/2015 Inactive Kenalog 40 mg/mL suspension for injection RxNorm: 0524556 1 Milliliter(s) Inj 11/26/2015 11/26/2015 Inactive losartan 100 mg-hydrochlorothiazide 12.5 mg tablet RxNorm: 408531 1 Tablet(s) PO daily 06/30/2015 06/09/2016 Inactive Augmentin 875 mg-125 mg tablet RxNorm: 156500 1 Tablet(s) PO BID 06/25/2015 07/04/2015 Inactive Kenalog 40 mg/mL suspension for injection RxNorm: 5611738 Milliliter(s) Inj 06/25/2015 06/25/2015 Inactive Levaquin 500 mg tablet RxNorm: 688965 1 Tablet(s) PO daily 04/21/2015 Inactive prednisone 20 mg tablet RxNorm: 534808 2 Tablet(s) PO daily 04/19/2015 Inactive Augmentin 875 mg-125 mg tablet RxNorm: 697884 1 Tablet(s) PO BID 03/11/2015 03/17/2015 Inactive Kenalog 40 mg/mL suspension for injection RxNorm: 3217481 Milliliter(s) Inj 03/11/2015 03/11/2015 Inactive losartan 100 mg-hydrochlorothiazide 12.5 mg tablet RxNorm: 654125 1 TABLET(S) DAILY 1 TABLET(S) PO DAILY 02/11/2015 Inactive losartan 100 mg-hydrochlorothiazide 12.5 mg tablet RxNorm: 328503 1 TABLET(S) DAILY 1 TABLET(S) PO DAILY 10/10/2014 Inactive Kenalog 40 mg/mL suspension for injection RxNorm: 3710025 Milliliter(s) Inj 09/03/2014 09/03/2014 Inactive amoxicillin 500 mg tablet RxNorm: 899518 1 Tablet(s) PO TID 09/12/2014 Inactive Kenalog 40 mg/mL suspension for injection RxNorm: 5005882 2 Milliliter(s) Inj 05/27/2014 05/27/2014 Inactive prednisone 10 mg tablet RxNorm: 295135 6pills days #1-3, 4pills days #4-6, 2pills days#7-9, 1pill days #10-13, 1/2 pill every other day x4 doses then stop taper 05/27/2014 11/25/2015 Inactive losartan 100 mg-hydrochlorothiazide 12.5 mg tablet RxNorm: 662848 1 Tablet(s) daily 1 TABLET(S) PO DAILY 05/06/201401/2015 Inactive estradiol 0.5 mg tablet RxNorm: 252323 1 Tablet(s) PO BID 04/3011/24/2016 Inactive Kenalog 40 mg/mL suspension for injection RxNorm: 0141916 Milliliter(s) Inj 04/04/2014 04/04/2014 Inactive sulfamethoxazole 800 mg-trimethoprim 160 mg tablet RxNorm: 191152 1 Tablet(s) PO BID 04/04/2014 04/13/2014 Inactive losartan 100 mg-hydrochlorothiazide 12.5 mg tablet RxNorm: 346904 1 TABLET(S) PO DAILY 11/05/2013 04/03/2014 Inactive Flagyl 500 mg tablet RxNorm: 243602 1 Tablet(s) PO TID 201310/20/2013 Inactive ciprofloxacin 500 mg tablet RxNorm: 201016 1 Tablet(s) PO BID 10/16/2013 10/22/2013 Inactive fluconazole 150 mg tablet RxNorm: 078918 1 Tablet(s) PO every other day 10/16/2013 10/24/2013 Inactive Lipitor 10 mg tablet RxNorm: 532950 1 TABLET(S) PO QPM TAKE 1 TABLET BY MOUTH DAILY 10/08/2013 10/08/2013 Inactive Lipitor 10 mg tablet RxNorm: 457312 1 Tablet(s) PO QPM TAKE 1 TABLET BY MOUTH DAILY 07/05/2013 10/02/2013 Inactive Lipitor 10 mg tablet RxNorm: 973313 Tablet(s) PO TAKE 1 TABLET BY MOUTH DAILY 07/05/2013 10/02/2013 Inactive Lipitor 10 mg tablet RxNorm: 685698 Tablet(s) PO TAKE 1 TABLET BY MOUTH DAILY 06/04/2013 07/04/2013 Inactive losartan 100 mg-hydrochlorothiazide 12.5 mg tablet RxNorm: 629662 1 Tablet(s) PO daily 05/16/2013 11/04/2013 Inactive Lipitor 10 mg tablet RxNorm: 940566 1 Tablet(s) PO daily 201210/05/2012 Inactive Lipitor 10 mg tablet RxNorm: 498052 1 Tablet(s) PO daily 201205/03/2013 Inactive losartan 100 mg-hydrochlorothiazide 12.5 mg tablet RxNorm: 463185 1 Tablet(s) PO daily No Start Date 05/15/2013 Inactive Medication Administered Medication Codes Instructions Start Date Status Kenalog 40 mg/mL suspension for injection RxNorm: 1674152 1.5Milliliter 07/09/2016 No longer Active Kenalog 40 mg/mL suspension for injection RxNorm: 1318519 1Milliliter 11/26/2015 No longer Active Kenalog 40 mg/mL suspension for injection RxNorm: 8215704 Milliliter 06/25/2015 No longer Active Kenalog 40 mg/mL suspension for injection RxNorm: 0951646 Milliliter 03/11/2015 No longer Active Kenalog 40 mg/mL suspension for injection RxNorm: 1359161 Milliliter 09/03/2014 No longer Active Kenalog 40 mg/mL suspension for injection RxNorm: 3704657 2Milliliter 05/27/2014 No longer Active Kenalog 40 mg/mL suspension for injection RxNorm: 1336981 Milliliter 04/04/2014 No longer Active Immunizations No [...] 477.9 2014 ACUTE SINUSITIS ICD-9: 461.9 09/03/2014 Zoroastrian tenderness ICD-9: 784.0 2014 Sudden visual loss [...] CPT-4: J3301 09/03/2014 THER/PROPH/DIAG INJ SC/IM CPT-4: 08060 04/04/2014 TRIAMCINOLONE ACET INJ NOS CPT-4: J3301 04/04/2014 C URINE RT (URINE CULTURE/COLONY COUNT) CPT-4: 31232 10/16/2013 URINALYSIS NONAUTO W/O SCOPE CPT-4: 21062 10/16/2013 PREV VISIT EST AGE 40-64 CPT-4: 07613 10/26/2012 Vital Signs Date Vital 04/06/2017 Blood Pressure 1: 120/64 Code : 8480-6 BMI: 37.6 Code : 61636-1 Heart Rate 1 : 101 bpm Height: 5'8" SpO2: 97% Weight: 251 lbs 11/25/2016 Blood Pressure 1: 134/94 Code : 8480-6 BMI: 37.5 Code : 18811-9 Heart Rate 1 : 78 bpm Height: 5'8" SpO2: 95% Weight: 250 lbs 07/09/2016 Blood Pressure 1: 138/90 Code : 8480-6 BMI: 37.9 Code : 61719-8 Heart Rate 1 : 84 bpm Height: 5'8" SpO2: 98% Weight: 253 lbs 01/26/2016 Blood Pressure 1: 138/88 Code : 8480-6 BMI: 37.8 Code : 38155-1 Heart Rate 1 : 72 bpm Height: 5'8" SpO2: 97% Weight: 252 lbs 12/12/2015 Blood Pressure 1: 124/80 Code : 8480-6 BMI: 37.8 Code : 64417-6 Heart Rate 1 : 99 bpm Height: 5'8" SpO2: 97% Weight: 252 lbs 11/26/2015 Blood Pressure 1: 164/100 Code: 8480-6 Blood Pressure 1: 128/82 Code: 8480-6 BMI: 38.8 Code: 42458-3 Heart Rate 1: 84 bpm Height: 5'8" SpO2: 97% Weight: 259 lbs 06/25/2015 Blood Pressure 1: 120/84 Code : 8480-6 BMI: 38.1 Code : 30455-1 Heart Rate 1 : 88 bpm Height: 5'8" SpO2: 97% Weight: 254 lbs 05/02/2015 Blood Pressure 1: 124/90 Code : 8480-6 Heart Rate 1: 98 bpm Height: SpO2: 97% Temperature: 36.8 (C) / 98.2 (F) Weight: 04/21/2015 Blood Pressure 1: 108/68 Code : 8480-6 BMI: 36.6 Code : 64366-5 Heart Rate 1 : 103 bpm Height: 5'8" SpO2: 87% Temperature: 37.5 (C) / 99.5 (F) Weight: 244 lbs 04/15/2015 Blood Pressure 1: 146/100 Code: 8480-6 BMI: 37.5 Code: 34709-9 Heart Rate 1: 96 bpm Height: 5'8" Weight: 250 lbs 03/11/2015 Blood Pressure 1: 126/78 Code : 8480-6 BMI: 37.8 Code : 16649-4 Heart Rate 1 : 68 bpm Height: 5'8" Respiratory Rate: 18 bpm SpO2: 97% Temperature: 36.7 (C) / 98.0 (F ) Weight: 252 lbs 09/03/2014 Blood Pressure 1: 130/92 Code : 8480-6 BMI: 37.6 Code : 25626-7 Heart Rate 1 : 84 bpm Height: 5'8" Temperature: 37.1 (C) / 98.7 (F) Weight: 251 lbs 05/27/2014 Blood Pressure 1: 128/80 Code : 8480-6 BMI: 37.3 Code : 70150-0 Heart Rate 1 : 84 bpm Height: 5'8" Weight: 249 lbs 04/30/2014 Blood Pressure 1: 130/78 Code : 8480-6 BMI: 37.3 Code : 31310-7 Heart Rate 1 : 88 bpm Height: 5'8" Weight: 249 lbs 04/04/2014 Blood Pressure 1: 122/76 Code : 8480-6 BMI: 37.6 Code : 08122-2 Heart Rate 1 : 72 bpm Height: 5'8" Temperature: 36.7 (C) / 98.1 (F) Weight: 251 lbs 12/04/2013 Blood Pressure 1: 132/88 Code : 8480-6 BMI: 38.4 Code : 17563-0 Heart Rate 1 : 81 bpm Height: 5'8" SpO2: 98% Weight: 256 lbs 10/25/2013 Blood Pressure 1: 122/76 Code : 8480-6 BMI: 37.8 Code : 56102-2 Heart Rate 1 : 88 bpm Height: 5'8" SpO2: 96% Weight: 252 lbs 10/16/2013 Blood Pressure 1: 124/88 Code : 8480-6 BMI: 38.5 Code : 23693-0 Heart Rate 1 : 84 bpm Height: 5'8" Weight: 257 lbs 07/30/2013 Blood Pressure 1: 130/80 Code : 8480-6 BMI: 39.0 Code : 89041-9 Heart Rate 1 : 88 bpm Height: 5'8" Weight: 260 lbs 10/26/2012 Blood Pressure 1: 112/84 Code : 8480-6 BMI: 37.2 Code : 11734-0 Heart Rate 1 : 80 bpm Height: 5'8" Weight: 248 lbs 10/03/2012 Blood Pressure 1: 136/94 Code : 8480-6 BMI: 37.3 Code : 55126-6 Heart Rate 1 : 76 bpm Height: [...] data Encounters Encounter Performer Location Codes Date 85174 EST. PATIENT, LEVEL IV Diagnosis: Acute laryngopharyngitis[ICD10: J06.0] Diagnosis: Cough[ICD10: R05] Diagnosis: Other allergic rhinitis[ICD10: J30.89] [facility] CPT-4: 12796 04/06/2017 ([id number]) PREV VISIT EST AGE 40-64 Diagnosis: Encounter for gynecological examination (general) (routine) without abnormal findings[ICD10: Z01.419] [facility] CPT-4: 82086 11/25/2016 ([id number]) 56520 EST. PATIENT, LEVEL III Diagnosis: Low back pain[ICD10: M54.5] Diagnosis: Allergic rhinitis due to pollen[ICD10: J30.1] [facility] CPT-4: 53810 07/09/2016 58861 EST. PATIENT, LEVEL III Diagnosis: Other allergic rhinitis[ICD10: J30.89] Janie Preciado MD [facility] CPT-4: 08079 01/26/2016 02679 EST. PATIENT, LEVEL IV Diagnosis: Other allergic rhinitis[ICD10: J30.89] Diagnosis: Acute laryngopharyngitis[ICD10: J06.0] Janie Preciado MD [facility] CPT-4: 62041 12/12/2015 07701 EST. PATIENT, LEVEL IV Diagnosis: Other acute sinusitis[ICD10: J01.80] Diagnosis: Acute laryngopharyngitis[ICD10: J06.0] Diagnosis: Other allergic rhinitis[ICD10: J30.89] Janie Preciado MD, [facility] CPT-4: 70877 11/26/2015 18899 EST. PATIENT, LEVEL IV Diagnosis: Acute recurrent maxillary sinusitis[ICD10: J01.01] Diagnosis: Acute upper respiratory infection, unspecified[ICD10: J06.9] Diagnosis: Other allergic rhinitis[ICD10: J30.89] Diagnosis: Other obesity due to excess calories[ICD10: E66.09] Ibis Preciado MD, [facility] CPT-4: 78364 06/25/2015 03118 EST. PATIENT, LEVEL III Diagnosis: Cough[ICD10: R05] Diagnosis: Unspecified bacterial pneumonia[ICD10: J15.9] Diagnosis: Encounter for follow-up examination after completed treatment for conditions other than malignant neoplasm[ICD10: Z09] Diagnosis: Other specified noninfective gastroenteritis and colitis[ICD10: K52.89] Sabrina Preciado MD, [facility] CPT-4: 11579 12/2015 ([id number]) Patient admitted to the hospital from clinic (NO CHARGE) Diagnosis: Cough[ICD10: R05] Diagnosis: Unspecified bacterial pneumonia[ICD10: J15.9] Diagnosis: Hypoxemia[ICD10: R09.02] Diagnosis: Nausea with vomiting, unspecified[ICD10: R11.2] Ibis Preciado MD, [facility] CPT-4: 00164G 04/21/2015 35723 EST. PATIENT, LEVEL IV Diagnosis: Other acute sinusitis[ICD10: J01.80] Diagnosis: Cough[ICD10: R05] Diagnosis: Acute upper respiratory infection, unspecified[ICD10: J06.9] Janie Preciado MD [facility] CPT-4: 76776 04/15/2015 ([id number]) 70107 EST. PATIENT, LEVEL III Diagnosis: Acute recurrent maxillary sinusitis[ICD10: J01.01] Ibis Preciado MD [facility] CPT-4: 19560 03/11/2015 ([id number]) 08542 EST. PATIENT, LEVEL III Diagnosis: ACUTE SINUSITIS[ICD9: 461.9] Diagnosis: ALLERGIC RHINITIS[ICD9: 477.9] Sabrina Preciado MD [facility] CPT-4: 21194 09/03/2014 ([id number]) 61511 EST. PATIENT, LEVEL IV Diagnosis: Sudden visual loss of left eye[ICD9: 368.11] Diagnosis: Zoroastrian tenderness[ICD9: 784.0] Ibis Preciado MD [facility] CPT- 4: 04039 05/27/2014 ([id number]) 63301 EST. PATIENT, LEVEL IV Diagnosis: Menopausal symptoms[ICD9: 627.2] Diagnosis: ESSENTIAL HYPERTENSION[ICD9: 401.9] Diagnosis: MALAISE AND FATIGUE[ICD9: 780.79] Ibis Preciado MD [facility] CPT-4: 96143 04/30/2014 ([id number]) 04065 EST. PATIENT, LEVEL III Diagnosis: ACUTE FRONTAL SINUSITIS[ICD9: 461.1] Diagnosis: HEADACHE[ICD9: 784.0] Diagnosis: COUGH[ICD9: 786.2] Ibis Preciado MD, [facility] CPT-4: 65541 04/04/2014 ([id number]) 18511 EST. PATIENT, LEVEL III Diagnosis: Ovarian mass[ICD9: 620.9] Diagnosis: Uterine fibroid[ICD9: 218.9] Diagnosis: Abdominal pain[ICD9: 789.00] Ibis Preciado MD, [facility] CPT- 4: 23036 12/04/2013 ([id number]) 94983 EST. PATIENT, LEVEL III Diagnosis: Abdominal pain[ICD9: 789.00] Diagnosis: Diarrhea[ICD9: 787.91] [facility] CPT-4: 75143 10/25/2013 ([id number]) 61885 EST. PATIENT, LEVEL III Diagnosis: DYSURIA[ICD9: 788.1] JOLYNN Michel MD CPT-4: 06259 10/16/2013 ([id number]) 62610 EST. PATIENT, LEVEL III Diagnosis: ESSENTIAL HYPERTENSION[SNOMED: 10946354] Diagnosis: Hyperlipidemia[ICD9: 272.4] Ibis Preciado MD, JOLYNN CPT- 4: 93812 07/30/2013 ([id number]) OFFICE VISIT, NEW - LEVEL 3 Diagnosis: ESSENTIAL HYPERTENSION[SNOMED: 49221950] Diagnosis: OBESITY[ICD9: 278.00] Diagnosis: Abdominal pain[ICD9: 789.00] [facility] CPT- 4: 63133 10/03/2012 Plan of Care Planned Activity Notes [...] allergy spray. 04/06/2017 Appointment: Janie Grayson WPtel: [address] [place], [place] [address] (15 min) Moderate 04/06/2017 Patient Education: Patient [...] intercourse. 11/25/2016 Appointment[facility]ado [facility] (15 min) Moderate 11/25/2016 Patient Education: Patient [...] injection. 07/09/2016 App[facility]ment[phone] [place] (30 min) Complex 07/09/2016 Patient Education: Patient Medication Summary Completed 07/09/2016 Care Plan: Referral Order history of ruptured disc L5-S1- had injections 8 or 9 years ago that were helpful SNOMED-CT : 726197475 Pending 07/09/2016 Visit Plan: Allergies - chronic [...] patient's pharmacy. 12/12/2015 Appointment: Sabrina Davidson WPtel: [address] [place], [place] [phone] (10 min) Simple 12/12/2015 Patient Education: Patient [...] allergy spray. 11/26/2015 Appointment: Sabrina Davidson WPtel: [address] [place], [place] [phone] (15 min) Moderate 11/26/2015 Patient Education: Patient [...] worse 05/02/2015 Appointment: [phone] (15 min) Moderate 05/02/2015 Patient [...] the office 03/11/2015 Appointment: Sabrina Davidson WPtel: [facility] [place] [phone] (15 min) Moderate 03/11/2015 Patient Education: Patient Medication Summary Completed 03/11/2015 Visit Plan: Sinusitis - Pt has acute infection - pain in face, maxillary region, Pt informed to use decongestant, RX given to patient, sinus rinses also recommended. Call if symptoms do not show improvement. 09/03/2014 Appointment: Sabrina Davidson WPtel: [phone] (15 min) Moderate 09/03/2014 Patient [...] aging process. 05/27/2014 Appointment: Ibis Preciado WPtel: [address] [place] [address] Follow up 05/27/2014 Patient Education: Patient Medication [...] at home. 04/30/2014 Appointment: Ibis Preciado WPtel: [facility] Follow up 04/30/2014 Patient Education: Patient Medication Summary Completed 04/30/2014 Patient Education: Hypertension Completed 04/30/2014 Visit Plan: Sinusitis - Pt has acute infection - pain in face, maxillary region, Pt informed to use decongestant, RX given to patient, sinus rinses also recommended. Call if symptoms do not show improvement. 04/04/2014 Appointment: Ibis Preciado WPtel: [facility] Sick 04/04/2014 Patient Education: Patient Medication Summary Completed 04/04/2014 Visit Plan: Mass in right ovary - discussed report results with the patient - appt with Dr. Curry - 12/11/13 @ 1100 12/04/2013 Appointment: Ibis Preciado WPtel: [address] [place] [address] Follow up 12/04/2013 Patient Education: Patient Medication Summary Completed 12/04/2013 Visit Plan: Abdominal pain, diarrhea - recommended pt to finish antibiotic, monitor I/O, start on probiotics,, and check scan of abdomen. 10/25/2013 Appointment: Ibis Preciado WPtel: [address] [place], [place] [phone] Sick 10/25/2013 Patient Education: Patient Medication Summary Completed 10/25/2013 Visit Plan: UTI - pt with positive urinalysis - culture sent if appropriate. Antibiotic electronically prescribed to pt's pharmacy of choice. Pt to call if symptoms do not improve. 10/16/2013 Appointment: Ibis Preciado WPtel: [address] [place] [address] 10/16/2013 Patient Education: Patient Medication Summary Completed [...] medications. 07/30/2013 Appointment: Sabrina Davidson WPtel: [phone] [phone] Follow up 07/30/2013 Patient Education: [...] prn. 10/26/2012 Appointment: Ibis Preciado WPtel: 1015 [facility] Pap Only 10/26/2012 Patient Education: Patient [...] discomfort. 10/03/2012 Appointment: Ibis Preciado WPtel: 1015 [facility] New Patient 10/03/2012 Patient Education: Patient [...] treatment needed-call with any questions or concerns Ezmlnttk-griswngn-wspebyts probiotics as directed-call if diarrhea does not [...]
--- OUTSIDE RECORDS SUMMARY | 2017-04-27 16:16 | XMS REPORT | Continuity of Care Document ---
Author Author [facility] Address Unknown Phone Unavailable Allergies Active Description Code Type Severity Reaction Onset Reported/Identified Relationship to Patient Clinical Status Yes Keflex Drug Allergy 09/09/2011 Yes Keflex Drug Allergy N/A N/A 09/09/2011 Yes cephalexin [id number] Drug Allergy Unknown HIVES 01/01/2014 Medications There is no data. Problems Date Dx Coded Attending Type Code Diagnosis Diagnosed By 08/14/2010 Ot 272.4 HYPERLIPIDEMIA NEC/NOS 08/14/2010 Ot 276.8 HYPOPOTASSEMIA 08/14/2010 Ot 288.60 LEUKOCYTOSIS , UNSPECIFIED 08/14/2010 Ot 401.9 HYPERTENSION NOS 08/14/2010 Ot 530.81 ESOPHAGEAL REFLUX 08/14/2010 Ot 724.5 BACKACHE NOS 08/14/2010 Ot 784.0 HEADACHE 08/14/2010 Ot 786.59 CHEST PAIN NEC 08/14/2010 Ot 916.4 INSECT BITE HIP LEG 08/14/2010 Ot E000.8 OTHER EXTERNAL CAUSE STATUS 08/14/2010 Ot E906.4 NONVENOM ARTHROPOD BITE 09/09/2011 GRISELDA NORTON DO K 401.1 HYPERTENSION, BENIGN ESSENTIAL 09/09/2011 GRISELDA NORTON DO K 461.9 Sinusitis Acute 09/09/2011 GRISELDA NORTON DO K 780.79 OTHER MALAISE AND FATIGUE 09/09/2011 CIERRA BENITO GRISELDA K V70.0 ROUTINE GENERAL MEDICAL EXAMINATION AT A HEALTH CARE FACILITY 09/09/2011 GRISELDA NORTON DO K 401.1 HYPERTENSION, BENIGN ESSENTIAL 09/09/2011 ALMA NORTON DOA K 461.9 Sinusitis Acute 09/09/2011 CIERRA BENITO GRISELDA K 780.79 OTHER MALAISE AND FATIGUE 09/09/2011 CIERRA BENITO GRISELDA K V70.0 ROUTINE GENERAL MEDICAL EXAMINATION AT A HEALTH CARE FACILITY 10/04/2011 GRISELDA NORTON DO 625.9 PELVIC PAIN 10/04/2011 ALMA NORTON DOA K V76.10 BREAST CANCER SCREENING 10/04/2011 CIERRA BENITO GRISELDA K V76.2 CERVICAL CANCER SCREENING (PAP SMEAR) 10/04/2011 CIERRA BENITO GRISELDA K 625.9 PELVIC PAIN 10/04/2011 CIERRA BENITO GRISELDA K V76.10 BREAST CANCER SCREENING 10/04/2011 CIERRA BENITO GRISELDA K V76.2 CERVICAL CANCER SCREENING (PAP SMEAR) 10/06/2011 CIERRA BENITO GRISELDA K 272.4 DYSLIPIDEMIA 10/06/2011 CIERRA BENITO GRISELDA K 272.4 DYSLIPIDEMIA 12/23/2011 CIERRA BENITO GRISELDA K 008.8 GASTROENTERITIS, VIRAL 12/23/2011 CIERRA BENITO, GRISELDA K 787.02 NAUSEA ALONE 12/23/2011 CIERRA BENITO, GRISELDA K 008.8 GASTROENTERITIS, VIRAL 12/23/2011 CIERRA BENITO, GRISELDA K 787.02 NAUSEA ALONE 01/11/2014 MILAGROS BENITO, ABHISHEK S Ot 218.2 SUBSEROUS LEIOMYOMA 01/11/2014 FENMARVIN DO ABHISHEK S Ot 620.2 OVARIAN CYST NEC/NOS 01/28/2014 FENECH DO ABHISHEK S Ot 625.9 01/28/2014 FENECH DO ABHISHEK S Ot V72.63 01/28/2014 FENECH DO, ABHISHEK S Ot V74.8 05/29/2014 ISHAN HOWE, SHARON Keller Ot 368.8 VISUAL DISTURBANCES NEC 05/29/2014 ISHAN HOWE, SHARON Keller Ot 401.9 HYPERTENSION NOS 05/29/2014 ISHAN HOWE, SHARON Keller Ot 784.0 HEADACHE 06/04/2014 WILMER HOWE, CHAPIN Macias Ot 368.9 06/04/2014 WILMER HOWE, CHAPIN Macias Ot 784.0 06/04/2014 WILMER HOWE, CHAPIN Macias Ot 794.09 06/17/2014 WILMER HOWE, CHAPIN Macias Ot 368.9 06/17/2014 WILMER HOWE, CHAPIN Macias Ot 784.0 06/17/2014 WILMER HOWE, CHAPIN Macias Ot 794.09 06/17/2014 WILMER HOWE, CHAPIN Macias Ot 368.11 06/17/2014 CHAPIN GUILLEN MD Ot 784.0 06/17/2014 CHAPIN GUILLEN MD Ot V58.69 12/27/2014 Ot 793.89 12/27/2014 Ot V76.12 12/27/2014 CHAPIN GUILLEN MD Ot V76.12 12/27/2014 WILMER HOWE, CHAPIN Macias Ot 218.9 12/27/2014 CHAPIN GUILLEN MD Ot 625.8 12/27/2014 WILMER HOWE, CHAPIN Macias Ot 789.03 12/27/2014 CHAPIN GUILLEN MD Ot 218.1 12/27/2014 CHAPIN GUILLEN MD Ot 218.2 12/27/2014 CHAPIN GUILLEN MD Ot 620.9 12/27/2014 FENECH DO, ABHISHEK S Ot 625.9 12/27/2014 FENECH DO, ABHISHEK S Ot V72.63 12/27/2014 FENECH DO, ABHISHEK S Ot V74.8 12/27/2014 WILMER HOWE, CHAPIN Macias Ot 368.9 12/27/2014 WILMER HOWE, CHAPIN Macias Ot 784.0 12/27/2014 CHAPIN GUILLEN MD Ot 794.09 12/27/2014 CHAPIN GUILLEN MD Ot 368.11 12/27/2014 CHAPIN GUILLEN MD Ot 784.0 12/27/2014 CHAPIN GUILLEN MD Ot V58.69 01/13/2015 АННА ROSE EMERGENCY SPILL RESPONSE TECHNICIAN Ot H46.9 01/13/2015 АННА ROSE EMERGENCY SPILL RESPONSE TECHNICIAN Ot Z12.31 04/25/2015 CHAPIN GUILLEN MD Ot E78.5 HYPERLIPIDEMIA, UNSPECIFIED 04/25/2015 CHAPIN GUILLEN MD Ot I10 ESSENTIAL (PRIMARY) HYPERTENSION 04/25/2015 CHAPIN GUILLEN MD Ot J18.9 PNEUMONIA, UNSPECIFIED ORGANISM 04/25/2015 CHAPIN GUILLEN MD Ot M54.9 DORSALGIA, UNSPECIFIED 04/25/2015 CHAPIN GUILLEN MD Ot R09.02 HYPOXEMIA 12/05/2015 Ot 793.89 OTH (ABN) FINDINGS ON RADIOLOGICAL EXAMI 12/05/2015 Ot V76.12 OTH SCREEN MAMMO-MALIGN NEOPLASM OF CRISTA 12/05/2015 CHAPIN GUILLEN MD Ot V76.12 OTH SCREEN MAMMO-MALIGN NEOPLASM OF CRISTA 12/05/2015 CHAPIN GUILLEN MD Ot 218.9 UTERINE LEIOMYOMA NOS 12/05/2015 CHAPIN GUILLEN MD Ot 625.8 FEM GENITAL SYMPTOMS NEC 12/05/2015 WILMER HOWE, CHAPIN Macias Ot 789.03 ABDOMINAL PAIN, RIGHT LOWER QUADRANT 12/05/2015 CHAPIN GUILLEN MD Ot 218.1 INTRAMURAL LEIOMYOMA 12/05/2015 CHAPIN GUILLEN MD Ot 218.2 SUBSEROUS LEIOMYOMA 12/05/2015 CHAPIN GUILLEN MD Ot 620.9 NONINFL DIS OVA/ADNX NOS 12/05/2015 FENECH DO, ABHISHEK S Ot 625.9 FEM GENITAL SYMPTOMS NOS 12/05/2015 FENECH DO, ABHISHEK S Ot V72.63 PRE-PROCEDURAL LABORATORY EXAMINATION 12/05/2015 LALITOECH DO, ABHISHEK S Ot V74.8 SCREEN-BACTERIAL DIS NEC 12/05/2015 CHAPIN GUILLEN MD Ot 368.9 VISUAL DISTURBANCE NOS 12/05/2015 CHAPIN GUILLEN MD Ot 784.0 HEADACHE 12/05/2015 CHAPIN GUILLEN MD Ot 794.09 ABN LABORER GOLF COURSE FUNCT STUDY NEC 12/05/2015 CHAPIN GUILLEN MD Ot 368.11 SUDDEN VISUAL LOSS 12/05/2015 CHAPIN GUILLEN MD Ot 784.0 HEADACHE 12/05/2015 CHAPIN GUILLEN MD Ot V58.69 OT MED,LT,CURRENT USE 12/05/2015 АННА ROSE Ot 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 Results There is no data. Encounters ACCT No. Visit Date/Time Discharge Status Pt. Type Provider Facility Loc./Unit Complaint [id number] 12/23/2011 16:07:00 12/23/2011 23:59:59 [place] [id number] 10/04/2011 14:43:00 10/04/2011 23:59:59 CLS Outpatient GRISELDA NORTON DO [id number] 12/05/2015 09:55:00 12/05/2015 23:59:59 CLS Outpatient АННА ROSE [facility] RAD WHITE MATTER LESIONS - 1 YEAR FOLLOW UP [id number] 04/21/2015 15:24:00 04/25/2015 13:30:00 DIS Inpatient CHAPIN GUILLEN MD [facility] 4TH PNEUMONIA [id number] 12/27/2014 12:24:00 12/27/2014 23:59:59 CLS Outpatient MILTON АННАSUDHAKAR JJ [facility] RAD SCREENING,F/U L OPTIC NERUITIS [id number] 05/29/2014 06:55:00 05/29/2014 13:00:00 DIS Outpatient SHARON OLMSTEAD MD [facility] TEMPORAL ARTHRITIS; TEMPORAL HEADACHES;VISION PAZ [id number] 05/28/2014 07:42:00 05/28/2014 23:59:59 CLS Outpatient CHAPIN GUILLEN MD [facility] RAD HEADACHE,SUDDEN VISION CHANGE, LEFT TEMPORAL PAIN [id number] 05/27/2014 12:24:00 05/27/2014 23:59:59 CLS Outpatient CHAPIN GUILLEN MD [facility] LAB SEE,SUDDEN VISION LOSS [id number] 01/10/2014 07:08:00 01/11/2014 09:00:00 DIS Outpatient ABHISHEK LINARES DO [facility] PELVIC MASS; FIBROUS UTERUS [id number] 01/01/2014 07:56:00 01/01/2014 23:59:59 CLS Outpatient ABHISHEK LINARES DO [facility] PREOP PELVIC MASS; FIBROUS UTERUS [id number] 11/23/2013 12:14:00 11/23/2013 23:59:59 CLS Outpatient CHAPIN GUILLEN MD [facility] RAD RIGHT ADNEXAL DENSITY [id number] 11/05/2013 08:23:00 11/05/2013 23:59:59 CLS Outpatient CHAPIN GUILLEN MD [facility] RAD ABD PELVIC PAIN, RLQ PAIN [id number] 11/01/2012 15:28:00 11/01/2012 23:59:59 CLS Outpatient CAHPIN GUILLEN MD [facility] RAD SCREENING [id number] 10/28/2011 15:30:00 Document Registration [id number] 08/13/2010 21:50:00 Document Registration
--- NOTE | 2017-04-27 17:47 | Diagnostic Imaging Report ---
INDICATION: Fell in hole. Bruising and swelling to right ankle, laterally. EXAMINATION: Three views of the right ankle were obtained. FINDINGS: The ankle mortise is in good alignment. Articulating surfaces are smooth. No fractures are demonstrated. There is soft tissue swelling over the lateral malleolus. IMPRESSION: Soft tissue swelling with no bony abnormalities. Dictated by: Dictated on workstation # [id number]
--- NOTE | 2017-04-27 17:55 | ED Fall/Injury ---
General Chief Complaint: Trauma-Non Activation Stated Complaint: ANKLE INJ Source: patient Exam Limitations: no limitations History of Present Illness Date Seen by Provider: Apr 27, 2017 Time Seen by Provider: 17:15 Initial Comments Patient presents to the emergency room with complaints of right ankle pain and swelling after inverting her foot when falling in a local retailer's parking lot. She has a minor contusion to the left knee as well but denies any other injury such as head or neck. She has been ambulating on the foot with pain. She has not taken any medications other than aspirin this morning. The incident happened early in the day. Allergies and Home Medications Allergies Coded Allergies: cephalexin (Unverified Allergy, Unknown, HIVES, 01/01/14) Home Medications Amoxicillin/Potassium Clav 1 Each Tablet, 1 EACH PO BID Prescribed by: CHAPIN GUILLEN on 04/25/15 1110 Ipratropium/Albuterol Sulfate 3 Ml Ampul.neb, 3 ML INH RTTID ONE INHALE TID X 5 DAYS AND Q 2 HOURS PRN SHORTNESS OF BREATH, THEN PRN SHORTNESS OF BREATH Prescribed by: CHAPIN GUILLEN on 04/25/15 1110 Lactobacillus Acidophilus 1 Each Capsule, 1 EACH PO TID Prescribed by: CHAPIN GUILLEN on 04/25/15 1110 Levofloxacin 750 Mg Tablet, 750 MG PO DAILY@1500 Prescribed by: CHAPIN GUILLEN on 04/25/15 1110 Loratadine 10 Mg Tablet, 10 MG PO DAILY, (Reported) Losartan/Hydrochlorothiazide 1 Each Tablet, 1 TAB PO DAILY, (Reported) Promethazine HCl/Codeine 118 Ml Syrup, 5-10 ML PO Q6H PRN for COUGH, (Reported) Patient Home Medication List Home Medication List Reviewed: Yes Constitutional: no symptoms reported Musculoskeletal: see HPI Skin: see HPI Psychiatric/Neurological: No Symptoms Reported Past Clzlkun-Iydibs-Tzkjnw Hx Patient Social History Recent Foreign Travel: No Contact w/Someone Who Travel: No Immunizations Up To Date Tetanus Booster (TDap): Unknown PED Vaccines UTD: Yes Surgeries History of Surgeries: Yes (wisdom teeth) Respiratory History of Respiratory Disorde: No Currently Using CPAP: No Currently Using BIPAP: No Cardiovascular History of Cardiac Disorders: Yes Cardiac Disorders: Hypertension Neurological History of Neurological Disord: No Reproductive System : No Hx Reproductive Disorders: No Genitourinary History of Genitourinary Disor: No Gastrointestinal History of Gastrointestinal Di: No Musculoskeletal History of Musculoskeletal Dis: No Endocrine History of Endocrine Disorders: No HEENT History of HEENT Disorders: No Cancer History of Cancer: No Psychosocial History of Psychiatric Problem: No Integumentary History of Skin or Integumenta: No Family Medical History Family Medial History: Alzheimer's disease 19 FATHER Arthritis 19 FATHER Cardiovascular disease 19 FATHER 19 MOTHER Completed stroke 19 MOTHER Hypertension 19 FATHER 19 MOTHER G8 BROTHER Myocardial infarction 19 MOTHER Thyroid disease 19 MOTHER No Family History of: AIDS Alcoholism Asthma Colon cancer Diabetes mellitus Drug abuse Kidney disease Parkinson's disease Prostate cancer Psychosocial problem Respiratory disorder Seizure disorder Severe allergy Tuberculosis Physical Exam Vital Signs Vital Signs - First Documented 04/27/17 16:24 Temp 98.6 Pulse 86 Resp 14 B/P (MAP) 134/107 (116) Pulse Ox 98 O2 Delivery Room Air Capillary Refill : General Appearance: WD/WN, no apparent distress HEENT: normal ENT inspection Cardiovascular: regular rate, rhythm, no edema, no murmur Respiratory: lungs clear, normal breath sounds, no respiratory distress Extremities: swelling, other (Tenderness and swelling about the right ankle, especially the lateral malleolus. Ecchymosis inferior to the lateral malleolus. Movement, capillary refill, and sensation of the toes intact.) Neurologic/Psychiatric: double end tenoner setter II-XII nml as tested, no motor/sensory deficits, alert, normal mood/affect, oriented x 3 Skin: warm/dry, ecchymosis Dipesh Coma Score Best Eye Response: (4) Open Spontaneously Best Verbal Response: (5) Oriented Best Motor Response: (6) Obeys Commands Dipesh Total: 15 Progress/Results/Core Measures Results/Orders My Orders Orders - EMILIE HINES MD Ankle, Right, 3 Views (04/27/17 17:23) Crutches (04/27/17 18:11) Vital Signs/I&O Vital Sign - Last 12Hours 04/27/17 04/27/17 16:24 18:59 Temp 98.6 Pulse 86 85 Resp 14 18 B/P (MAP) 134/107 (116) 134/87 Pulse Ox 98 98 O2 Delivery Room Air Room Air Progress Note : Progress Note No fracture or dislocation was identified. Ankle was wrapped with Abdulaziz bandages and crutches were dispensed. Diagnostic Imaging Diagonstic Imaging: Xray Plain Films/CT/US/NM/MRI: ankle Comments X-ray the ankle viewed by me and report reviewed. See report below: NAME: SKYLER KAY [facility] REC#: [id number] PT STATUS: REG ER : 1965 PHYSICIAN: EMILIE HINES MD ADMIT DATE: 04/27/17/ER Signed Date of Exam: 04/27/17 ANKLE, RIGHT, 3 VIEWS INDICATION: Fell in hole. Bruising and swelling to right ankle, laterally. EXAMINATION: Three views of the right ankle were obtained. FINDINGS: The ankle mortise is in good alignment. Articulating surfaces are smooth. No fractures are demonstrated. There is soft tissue swelling over the lateral malleolus. IMPRESSION: Soft tissue swelling with no bony abnormalities. Dictated by: Dictated on workstation # [id number] Dict: 04/27/171742 Trans: 04/27/171817 Interpreted by: RUBY CHERY MD Electronically signed by: RUBY CHERY MD 04/27/171817 Departure Impression Impression: Primary Impression: Right ankle sprain Qualified Codes: S93.401A - Sprain of unspecified ligament of right ankle, initial encounter Disposition: 01 HOME, SELF-CARE Condition: Stable Departure-Patient Inst. Decision time for Depature: 18:00 Referrals: CHAPIN GUILLEN MD (PCP/Family) Primary Care Physician Patient Instructions: Ankle Sprain, Ankle Strengthening Exercises Add. Discharge Instructions: Rest, elevation, icing in 20 minute intervals, and compression should help with pain and swelling. I recommend using a Velcro or lace up ankle brace when active for the next 4-6 weeks to prevent reinjury. You may use ibuprofen up to 600 mg every 6 hours as needed for pain. Add Tylenol (acetaminophen) up to 1000 mg every 6 hours as needed for additional pain relief. Return to care if symptoms are worsening or not improving as expected. All discharge instructions reviewed with patient and/or family. Voiced understanding. EMILIE HINES MD Apr 27, 2017 17:55
[2017-04-27 18:59] VITALS: BP 134/87
== END 2017-04-27 18:41 | disposition home or self-care (01) ==
LOC: EDUNIT# 16:04 → ER 16:06
DX: S93.401A Sprain of unspecified ligament of right ankle, initial encounter (principal); R40.2142 Coma scale, eyes open, spontaneous, at arrival to emergency department; R40.2252 Coma scale, best verbal response, oriented, at arrival to emergency department; R40.2362 Coma scale, best motor response, obeys commands, at arrival to emergency department; I10 Essential (primary) hypertension; Z82.49 Family history of ischemic heart disease and other diseases of the circulatory system; Z88.1 Allergy status to other antibiotic agents; W18.30XA Fall on same level, unspecified, initial encounter; Y92.481 Parking lot as the place of occurrence of the external cause
CPT/HCPCS: 73610

== ENCOUNTER 2017-10-07 08:02 | Outpatient (RCR) | payer BC ==
[~2017-10-07 08:02] MED LIST changes: -CODE118S2 PO; +CODE118S4 PO; -IPRA3AMP INH; +IPRA3AMP31 INH
== END 2017-11-15 11:10 | disposition home or self-care (01) ==
PROVIDERS: ATTEND Family Medicine
DX: M54.2 Cervicalgia (principal)

== ENCOUNTER → 2018-03-17 | Outpatient (CLI) | payer BC ==
--- NOTE | 2018-03-17 17:12 | Diagnostic Imaging Report ---
INDICATION: Palpable lumps in each breast. COMPARISON: Correlation is made with the diagnostic mammogram earlier the same day. EXAMINATION: Sonographic interrogation of the areas of lumps in both breasts was performed. FINDINGS: This corresponds to the 8 o'clock location of the right breast and 4-5 o'clock location of the left breast. No sonographic abnormality is seen. No solid or cystic mass is detected. IMPRESSION: No sonographic abnormality is seen. Continued close clinical and self breast exams recommended to confirm stability of the areas of palpable abnormality. ACR BI-RADS Category 1: Negative. Result letter will be mailed to the patient. Note: At least 10% of breast cancer is not imaged by mammography. Dictated on workstation # [id number]
--- NOTE | 2018-03-17 22:22 | Diagnostic Imaging Report ---
INDICATION: Painful lumps in bilateral breasts. COMPARISON: Correlation made with mammograms from 12/27/2014 and 11/01/2012. EXAMINATION: 2D and 3D bilateral diagnostic mammography was performed. BB markers were placed at areas of palpable abnormality in both breasts. This corresponds to inferior slightly outer right breast as well as the inferior slightly outer left breast at posterior depth. FINDINGS: Scattered fibroglandular densities are identified, bilaterally. The overall parenchymal pattern appears stable. No mass or malignant-appearing microcalcifications are seen. There are benign calcifications scattered throughout both breasts. Axillae are unremarkable. IMPRESSION: No mammographic features suspicious for malignancy are identified. Even so, directed sonographic interrogation of the areas of palpable abnormality in bilateral breasts is recommended and will be performed today. ACR BI-RADS Category 0: Incomplete. (Needs additional imaging evaluation). Result letter will be mailed to the patient. Note: At least 10% of breast cancer is not imaged by mammography. Dictated on workstation # [id number]
== END ==
LOC: RAD 13:24
PROVIDERS: ATTEND Nurse Practitioner Family
DX: N63.10 Unspecified lump in the right breast, unspecified quadrant (principal); N63.20 Unspecified lump in the left breast, unspecified quadrant
CPT/HCPCS: 76642; 77066

== ENCOUNTER → 2021-02-27 | Outpatient (CLI) | payer BC ==
[~2021-02-27] MED LIST changes: -LEVO500T80 PO; +LEVO500T81 PO
--- NOTE | 2021-03-02 09:15 | Diagnostic Imaging Report ---
INDICATION: Routine screening. COMPARISON: 03/17/2018 and 12/27/2014. TECHNIQUE: 2D and 3D bilateral screening mammography was performed with CAD. FINDINGS: Both breasts are heterogeneously dense, limiting the sensitivity of mammography. The overall parenchymal pattern appears stable. There are scattered benign calcifications. No spiculated mass or malignant appearing microcalcifications are seen. The axillae are unremarkable. IMPRESSION: No mammographic features suspicious for malignancy are identified. ACR BI-RADS Category 2: Benign findings. Result letter will be mailed to the patient. Note: At least 10% of breast cancer is not imaged by mammography. Dictated by: Dictated on workstation # [id number]
== END ==
LOC: RAD 14:32
PROVIDERS: ATTEND Family Medicine
DX: Z12.31 Encounter for screening mammogram for malignant neoplasm of breast (principal)
CPT/HCPCS: 77063; 77067

== ENCOUNTER 2022-05-29 12:08 | Emergency (ER) | payer BC ==
[~2022-05-29] VITALS: Ht 172 cm; Wt 110.0 kg
[~2022-05-29 12:08] MED LIST changes: +LEVO-55 PO; -LEVO500T81 PO; +LEVO750T PO; -LEVO750T39 PO
[2022-05-29] MEDS ORDERED: ASPIRIN 81 MG CHEW (CHILDREN'S ASA) PO ONE (12:15)
[2022-05-29] MEDS ORDERED: ASPIRIN 81 MG CHEW (CHILDREN'S ASA) ONE (12:15)
[2022-05-29] MEDS ORDERED: NITROGLYCERIN 0.4 MG SL TABS BTL 25'S SL PRN (12:15)
--- NOTE | 2022-05-29 12:19 | ED Cardiac General ---
History of Present Illness General Stated Complaint: SOA Source: patient History of Present Illness Date Seen by Provider: May 29, 2022 Time Seen by Provider: 12:06 Initial Comments PT ARRIVES VIA POV FROM HOME PT STATES SINCE AROUND MIDNIGHT LAST NIGHT SHE HAS HAD: -LEFT CHEST PAIN--PAIN IS CONSTANT, RATES PAIN /10 -SHORTNESS OF BREATH -PAIN WITH BREATHING--STATES "LIKE LIGHTNING ACROSS MY DIAPHRAGM EVERY TIME I TAKE A DEEP BREATH" "LIKE MY DIAPHRAGM SEIZES UP EVERY TIME I TAKE A DEEP DEBRA ATH" -SWEATS THIS AM NO CHANGE IN CHRONIC LEG/ANKLE SWELLING NO COUGH OR URI SYMPTOMS NO FEVER NO GI SYMPTOMS NO DIZZINESS OR SYNCOPE NO PALPITATIONS SHE HAS NOT TAKEN ANYTHING FOR PAIN SHE HAS HISTORY OF HTN, CHRONIC LEG EDEMA AND SEASONAL ALLERGIES SHE HAS A STRONG FAMILY HISTORY OF HEART DISEASE--ALL OVER THE AGE OF 50 SHE IS NOT COVID OR FLU VACCINATED. PCP: DR. GUILLEN Allergies and Home Medications Allergies Coded Allergies: cephalexin (Unverified Allergy, Unknown, HIVES, 01/01/14) Patient Home Medication List Home Medication List Reviewed: Yes Amoxicillin/Potassium Clav (Augmentin 500-125 Tablet) 1 Each Tablet, 1 EACH PO BID Prescribed by: CHAPIN GUILLEN on 04/25/15 1110 Ipratropium/Albuterol Sulfate (Iprat-Albut 0.5-3(2.5) mg/3 ml) 3 Ml Ampul.neb, 3 ML INH RTTID Prescribed by: CHAPIN GUILLEN on 04/25/15 1110 Lactobacillus Acidophilus (Acidophilus) 1 Each Capsule, 1 EACH PO TID Prescribed by: CHAPIN GUILLEN on 04/25/15 1110 Levofloxacin (Levofloxacin) 750 Mg Tablet, 750 MG PO DAILY@1500 Prescribed by: CHAPIN GUILLEN on 04/25/15 1110 Loratadine (Claritin) 10 Mg Tablet, 10 MG PO DAILY, (Reported) Entered as Reported by: EWA MARR on 01/01/14 0903 Losartan/Hydrochlorothiazide (Losartan-Hctz 100-12.5 mg Tab) 1 Each Tablet, 1 TAB PO DAILY, (Reported) Entered as Reported by: CHEKO HOFFMANN on 04/21/15 1532 Nebulizer (Aeroneb Go Nebuliser) 1 Each Each, 1 EACH UD, (DME) Prescribed by: CHAPIN GUILLEN on 04/25/15 1110 Promethazine HCl/Codeine (Promethazine-Codeine Syrup) 118 Ml Syrup, 5-10 ML PO Q6H PRN for COUGH, (Reported) Entered as Reported by: CHEKO HOFFMANN on 04/21/15 1532 Review of Systems Review of Systems Constitutional: see HPI; No chills; diaphoresis; No dizziness, No fever EENTM: Nose Congestion Respiratory: See HPI; Denies Cough; Shortness of Air Cardiovascular: See HPI, Chest Pain, Edema; Denies Lightheadedness, Denies Palpitations, Denies Syncope Past Ezfpocu-Czatrw-Xavdza Hx Patient Social History Tobacco Use?: No Substance use?: No Alcohol Use?: No Immunizations Up To Date Tetanus Booster (TDap): Unknown PED Vaccines UTD: Yes Seasonal Allergies Seasonal Allergies: Yes Past Medical History Surgeries: Yes (wisdom teeth) Hysterectomy, Oophorectomy Respiratory: No Currently Using CPAP: No Currently Using BIPAP: No Cardiac: Yes Hypertension Neurological: No Reproductive Disorders: Yes Female Reproductive Disorders: 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 Genitourinary: No Gastrointestinal: No Musculoskeletal: No Endocrine: No HEENT: No Cancer: No Psychosocial: No Integumentary: No Blood Disorders: No Family Medical History Alzheimer's disease 19 FATHER Arthritis 19 FATHER Cardiovascular disease 19 FATHER 19 MOTHER Completed stroke 19 MOTHER Hypertension 19 FATHER 19 MOTHER G8 BROTHER Myocardial infarction 19 MOTHER Thyroid disease 19 MOTHER No Family History of: AIDS Alcoholism Asthma Colon cancer Diabetes mellitus Drug abuse Kidney disease Parkinson's disease Prostate cancer Psychosocial problem Respiratory disorder Seizure disorder Severe allergy Tuberculosis Physical Exam Vital Signs Vital Signs - First Documented Capillary Refill : Height, Weight, BMI Height: 5'8.00" Weight: 250lbs. 1.0oz. [id number]; 36.34 BMI Method:Stated General Appearance: No Apparent Distress, WD/WN HEENT: PERRL/EOMI Neck: Full Range of Motion, Normal Inspection, Non Tender, Supple; No Carotid Bruit, No JVD Respiratory: Chest Non Tender, Normal Breath Sounds, No Accessory Muscle Use, No Respiratory Distress Cardiovascular: Regular Rate, Rhythm, No JVD, No Murmur, Normal Peripheral Pulses Gastrointestinal: Non Tender, Soft Extremity: Normal Capillary Refill, Normal Range of Motion, Non Tender, No Calf Tenderness, Pedal Edema (TRACE BILATERALLY) Neurologic/Psychiatric: Alert, Oriented x3, No Motor/Sensory Deficits, Normal 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/Affect, 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 Norm as Tested Skin: Normal Color, Warm/Dry Progress/Results/Core Measures Results/Orders Lab Results Laboratory Tests Test 05/29/22 12:16 05/29/22 12:23 05/29/22 15:04 Range/Units White Blood Count 7.0 4.3-11.0 10^3/uL Red Blood Count 5.44 H 3.80-5.11 10^6/uL Hemoglobin 15.4 11.5-16.0 g/dL Hematocrit 46 35-52 % Mean Corpuscular Volume 84 80-99 fL Mean Corpuscular Hemoglobin 28 25-34 pg Mean Corpuscular Hemoglobin Concent 34 32-36 g/dL Red Cell Distribution Width 12.7 10.0-14.5 % Platelet Count 329 130-400 10^3/uL Mean Platelet Volume 9.0 9.0-12.2 fL Immature Granulocyte % (Auto) 0 % Neutrophils (%) (Auto) 59 42-75 % Lymphocytes (%) (Auto) 32 12-44 % Monocytes (%) (Auto) 7 0-12 % Eosinophils (%) (Auto) 1 0-10 % Basophils (%) (Auto) 1 0-10 % Neutrophils # (Auto) 4.1 1.8-7.8 10^3/uL Lymphocytes # (Auto) 2.2 1.0-4.0 10^3/uL Monocytes # (Auto) 0.5 0.0-1.0 10^3/uL Eosinophils # (Auto) 0.1 0.0-0.3 10^3/uL Basophils # (Auto) 0.1 0.0-0.1 10^3/uL Immature Granulocyte # (Auto) 0.0 0.0-0.1 10^3/uL Prothrombin Time 12.4 12.2-14.7 SEC INR Comment 0.9 0.8-1.4 Activated Partial Thromboplast Time 37 H 24-35 SEC D-Dimer 0.34 0.00-0.49 UG/ML Sodium Level 143 135-145 MMOL/L Potassium Level 3.6 3.6-5.0 MMOL/L Chloride Level 104 98-107 MMOL/L Carbon Dioxide Level 29 21-32 MMOL/L Anion Gap 10 5-14 MMOL/L Blood Urea Nitrogen 9 7-18 MG/DL Creatinine 0.75 0.60-1.30 MG/DL Estimat Glomerular Filtration Rate 93 BUN/Creatinine Ratio 12 Glucose Level 97 70-105 MG/DL Calcium Level 9.6 8.5-10.1 MG/DL Corrected Calcium 9.3 8.5-10.1 MG/DL Magnesium Level 2.3 1.6-2.4 MG/DL Total Bilirubin 0.6 0.1-1.0 MG/DL Aspartate Amino Transf (AST/SGOT) 23 5-34 U/L Alanine Aminotransferase (ALT/SGPT) 37 0-55 U/L Alkaline Phosphatase 111 40-136 U/L Total Creatine Kinase 66 29-168 U/L Creatine Kinase MB 0.6 <6.6 NG/ML Myoglobin 24.7 10.0-92.0 NG/ML Troponin I < 0.028 < 0.028 <0.028 NG/ML B-Type Natriuretic Peptide < 10.0 <100.0 PG/ML Total Protein 7.4 6.4-8.2 GM/DL Albumin 4.4 3.2-4.5 GM/DL Amylase Level 50 25-125 U/L Lipase 26 8-78 U/L Influenza Type A (RT-PCR) Not Detected Not Detecte Influenza Type B (RT-PCR) Not Detected Not Detecte SARS-CoV-2 RNA (RT-PCR) Not Detected Not Detecte My Orders Orders - ZAIN MOORE DO Cbc With Automated Diff (05/29/22 12:14) Magnesium (05/29/22 12:14) Chest 1 View, Ap/Pa Only (05/29/22 12:14) Ekg Tracing (05/29/22 12:14) Comprehensive Metabolic Panel (05/29/22 12:14) Myoglobin Serum (05/29/22 12:14) Protime With Inr (05/29/22 12:14) Partial Thromboplastin Time (05/29/22 12:14) O2 (05/29/22 12:14) Monitor-Rhythm Ecg Trace Only (05/29/22 12:14) Ed Iv/Invasive Line Start (05/29/22 12:14) Creatine Kinase (05/29/22 12:14) Creatine Kinase Mb (05/29/22 12:14) Lipase (05/29/22 12:14) Amylase (05/29/22 12:14) Bnp [employer] (05/29/22 12:14) Fibrin Degradation Products (05/29/22 12:14) Troponin I [employer] (05/29/22 12:14) Nitroglycerin 0.4 Mg Btl 25's (Nitrostat (05/29/22 12:15) Aspirin Chewable Tablet (Baby Aspirin Ch (05/29/22 12:15) Covid 19 Inhouse Test (05/29/22 12:14) Influenza A And B By Pcr (05/29/22 12:14) Isolation Central Supply Req (05/29/22 12:14) Aspirin Chewable Tablet (Baby Aspirin Ch (05/29/22 12:15) Ct Angio Chest W (R/O Pe) (05/29/22 12:55) Iohexol Injection (Omnipaque 350 Mg/Ml 1 (05/29/22 13:00) Received Contrast (Hold Metformin- Contr (05/29/22 13:00) Ns (Ivpb) (Sodium Chloride 0.9% Ivpb Bag (05/29/22 13:00) Ekg Tracing (05/29/22 15:01) Troponin I Cornelio (05/29/22 15:01) Medications Given in ED Current Medications Medications Dose Ordered Sig/Lawson Route Start Time Stop Time Status Last Admin Dose Admin Aspirin 324 mg ONCE ONCE PO 05/29/22 12:15 05/29/22 12:16 DC 05/29/22 12:17 324 MG Iohexol 100 ml ONCE ONCE IV 05/29/22 13:00 05/29/22 13:01 DC 05/29/22 13:20 90 ML Nitroglycerin 0.4 mg UD PRN SL 05/29/22 12:15 05/29/22 12:23 0.4 MG Sodium Chloride 100 ml ONCE ONCE IV 05/29/22 13:00 05/29/22 13:01 DC 05/29/22 13:20 70 ML Vital Signs/I&O 05/29/22 05/29/22 12:09 12:09 Temp 36.3 Pulse 76 Resp 20 B/P (MAP) 144/112 (123) Pulse Ox 99 99 O2 Delivery Room Air Room Air Progress Progress Note : Progress Note PPE WORN COVID AND FLU TESTING DONE CHEST PAIN PROTOCOL INITIATED GIVEN: -ASPIRIN -NTG X 3--PAIN DOWN TO 3/10. 1400--PT IS SYMPTOM-FREE AT THIS TIME. ALL STUDIES ARE ESSENTIALLY NORMAL AT THIS TIME. VITALS ARE STABLE. WILL DO 3 HOUR REPEAT EKG AND LAB. REPEAT EKG IS UNCHANGED AND REPEAT TROPONIN IS NEGATIVE. PT IS SYMPTOM FREE REVIEWED ALL TEST RESULTS, ANTICIPATED COURSE, SYMPTOMATIC TREATMENT, NEED FOR FOLLOW UP --PT WILL FOLLOW UP WITH DR. HERNÁNDEZ FOR POSSIBLE OUTPATIENT STRESS TEST, AND RETURN PRECAUTIONS Initial ECG Impression Date: May 29, 2022 Initial ECG Impression Time: 12:17 Initial ECG Rate: 78 Initial ECG Rhythm: Normal Sinus Initial ECG Intervals [place] 175 QRS 96 QT/QTC 393/448 Initial ECG Impression: Nonspecific Changes Initial ECG Comparisson: Unchanged Comment INTERPRETED BY ME EKG : EKG Time: 15:09 Rate: 76 Rhythm: Normal Sinus Intervals [place] 176 QRS 93 QT/QTC 408/459 INTERPRETED BY ME ECG Comparisson: Unchanged Diagnostic Imaging Comments CXR--PER RADIOLOGIST REPORT AT 1245 FINDINGS: The lung volumes are normal. No focal consolidation is seen. No large pleural effusion or pneumothorax is seen. The cardiomediastinal silhouette is normal in size and contour. No acute osseous abnormality is seen. IMPRESSION: No acute pulmonary abnormality seen. CT CHEST ANGIOGRAM--PER RADIOLOGIST REPORT AT 1355 FINDINGS: No pulmonary artery filling defects. Normal caliber thoracic aorta. Normal heart size. No pericardial effusion. No mediastinal, hilar or axillary lymphadenopathy. Mild dependent atelectasis in the lungs which are otherwise clear. No pleural effusion or pneumothorax. No acute osseous findings. Visualized upper abdominal contents are unremarkable. IMPRESSION: 1. No pulmonary emboli. 2. Mild dependent atelectasis in the lungs. Remainder negative. Reviewed: Reviewed by Me Departure Communication (Admissions) 2540--SPOKE WITH DR. HERNÁNDEZ, DERMATOLOGY NURSE, HE IS AGREEABLE WITH PT GOING HOME, WILL FOLLOW UP IN THE OFFICE FOR POSSIBLE OUTPATIENT STRESS TEST. Impression Primary Impression: Chest pain Disposition: 01 HOME, SELF-CARE Condition: Improved Departure-Patient Inst. Decision time for Depature: 15:45 Referrals: CHAPIN GUILLEN MD (PCP/Family) Primary Care Physician VIKI HERNÁNDEZ MD Patient Instructions: Chest Pain, Adult ED Add. Discharge Instructions: HOME, REST AVOID ANY EXERCISE OR STRENUOUS ACTIVITY TYLENOL AND MOTRIN FOR PAIN CONTINUE YOUR REGULAR MEDICATIONS FOLLOW UP WITH DR. HERNÁNDEZ, DERMATOLOGY NURSE, NEXT WEEK--CALL ON TUESDAY TO SCHEDULE AN APPOINTMENT. RETURN TO ER IF YOUR SYMPTOMS RETURN ZAIN MOORE DO May 29, 2022 12:18
[2022-05-29 12:25] LABS: BASOPHILS # (AUTO) 0.1 10^3/uL (0.0-0.1); BASOPHILS % (AUTO) 1 % (0-10); EOSINOPHILS # (AUTO) 0.1 10^3/uL (0.0-0.3); EOSINOPHILS % (AUTO) 1 % (0-10); HEMATOCRIT 46 % (35-52); HEMOGLOBIN 15.4 g/dL (11.5-16.0); LYMPHOCYTES # (AUTO) 2.2 10^3/uL (1.0-4.0); LYMPHOCYTES % (AUTO) 32 % (12-44); MEAN CORPUSCULAR HEMOGLOBIN 28 pg (25-34); MEAN CORPUSCULAR HGB CONC 34 g/dL (32-36); MEAN CORPUSCULAR VOLUME 84 fL (80-99); MONOCYTES # (AUTO) 0.5 10^3/uL (0.0-1.0); MONOCYTES % (AUTO) 7 % (0-12); NEUTROPHILS # (AUTO) 4.1 10^3/uL (1.8-7.8); NEUTROPHILS % (AUTO) 59 % (42-75); PLATELET COUNT 329 10^3/uL (130-400)
[2022-05-29 12:36] LABS: ALBUMIN 4.4 GM/DL (3.2-4.5); POTASSIUM 3.6 MMOL/L (3.6-5.0)
--- NOTE | 2022-05-29 12:36 | Diagnostic Imaging Report ---
PATIENT HISTORY: Chest pain. TECHNIQUE: Single frontal view of the chest. COMPARISON: 04/24/2015 FINDINGS: The lung volumes are normal. No focal consolidation is seen. No large pleural effusion or pneumothorax is seen. The cardiomediastinal silhouette is normal in size and contour. No acute osseous abnormality is seen. IMPRESSION: No acute pulmonary abnormality seen. Dictated by: Dictated on workstation # [id number]
[2022-05-29 12:37] LABS: CALCIUM 9.6 MG/DL (8.5-10.1)
[2022-05-29 12:38] LABS: INR 0.9 (0.8-1.4); PROTHROMBIN TIME PATIENT 12.4 SEC (12.2-14.7); TOTAL PROTEIN 7.4 GM/DL (6.4-8.2)
[2022-05-29 12:40] LABS: BILIRUBIN,TOTAL 0.6 MG/DL (0.1-1.0)
[2022-05-29 12:42] LABS: CREATININE SERUM 0.75 MG/DL (0.60-1.30)
[2022-05-29 12:45] LABS: MAGNESIUM 2.3 MG/DL (1.6-2.4)
[2022-05-29 12:52] LABS: CREATINE KINASE MB 0.6 NG/ML (<6.6)
[2022-05-29] MEDS ORDERED: NS 100 ML (IVPB) BAG IV ONE (13:00)
[2022-05-29] MEDS ORDERED: IOHEXOL 350 MG/ML 100 ML (OMNIPAQUE 350) VIAL IV ONE (13:00)
[2022-05-29] MEDS ORDERED: HOLD METFORMIN - RECEIVED CONTRAST 20 ML VIAL IV SCH (13:00)
--- NOTE | 2022-05-29 13:52 | Diagnostic Imaging Report ---
EXAM: CT ANGIO CHEST W (R/O PE) INDICATION: Pain. COMPARISON: Chest radiograph 05/29/2022. FINDINGS: No pulmonary artery filling defects. Normal caliber thoracic aorta. Normal heart size. No pericardial effusion. No mediastinal, hilar or axillary lymphadenopathy. Mild dependent atelectasis in the lungs which are otherwise clear. No pleural effusion or pneumothorax. No acute osseous findings. Visualized upper abdominal contents are unremarkable. IMPRESSION: 1. No pulmonary emboli. 2. Mild dependent atelectasis in the lungs. Remainder negative. Dictated by: Dictated on workstation # [id number]
[2022-05-29 15:57] VITALS: BP 126/75
== END 2022-05-29 15:57 | disposition home or self-care (01) ==
LOC: EDUNIT# 12:08 → ER 12:10
DX: R07.89 Other chest pain (principal); R60.0 Localized edema; Z20.822 Contact with and (suspected) exposure to COVID-19; Z28.310 Unvaccinated for COVID-19
CPT/HCPCS: 36415; 71045; 71275; 80053; 82150; 82550; 82553; 83690; 83735; 83874; 83880; 84484; 85025; 85379; 85610; 85730; 87636; 93005; 93041

== ENCOUNTER → 2022-07-06 | Outpatient (CLI) | payer BC | LOC: CARD 15:00 | PROVIDERS: ATTEND Internal Medicine Cardiovascular Disease | DX: R06.09 Other forms of dyspnea (principal) | CPT/HCPCS: 93306 ==

== ENCOUNTER → 2022-07-21 | Outpatient (CLI) | payer BC ==
[~2022-07-21] VITALS: Ht 172 cm; Wt 109.0 kg
[~2022-07-21] MED LIST changes: +CATHETER FLUSH 10 ML SYR IVP PRN
[2022-07-21 13:06] VITALS: BP 155/100
--- NOTE | 2022-07-21 14:16 | Cardiology Stress Test Report ---
Stress Test Report Date of Procedure/Referring: Date of Procedure: July 21, 2022 PCP Chapin Preciado MD Admitting Physician Admitting Physician: Attending Physician: Cata Rajput MD Indications: CP Baseline Heart Rate: 70 Baseline Blood Pressure: Blood Pressure Systolic: 155 Blood Pressure Diastolic: 100 Vital Signs Date Time Temp Pulse Resp B/P (MAP) Pulse Ox O2 Delivery O2 Flow Rate FiO2 07/21/22 13:06 70 16 155/100 (118) 96 Room Air Baseline Vital Signs Vital Signs Date Time Temp Pulse Resp B/P (MAP) Pulse Ox O2 Delivery O2 Flow Rate FiO2 07/21/22 13:06 70 16 155/100 (118) 96 Room Air Baseline EKG: Baseline EKG: NSR Summary: After explaining the procedure and details to the patient, she signed the consent and was brought to the stress nuclear laboratory. Patient exercised on standard [place] protocol, EKG, heart rate and blood pressure were monitored continuously, resting and stress doses of radio tracer were injected, imaging was acquired and reviewed in the short axis, horizontal long axis and vertical long axis views Patient was able to exercise for a total of 3.30 minutes on Everett protocol, METs 4.7 Maximum heart rate 141 Maximum blood pressure 251/117 Stress EKG, Minimal nondiagnostic changes Recovery EKG, Return to baseline TID: 1.06 SSS: 4 SDS: 4 EF: 59 Conclusion: Fair exercise tolerance for 3 minutes and 30 seconds on standard [place]rett protocol, 4.7 METS achieving 85% of maximal expected heart rate Appropriate heart rate response to exercise with hypertensive response to exercise with peak blood pressure 251/117 return to baseline during recovery Nondiagnostic EKG changes with exercise return to baseline during recovery Breast attenuation with mild decrease uptake at the mid to apical anterolateral wall with mild reversibility, no significant ischemia or infarction noted on SPECT images Normal left ventricular size, ejection fraction 59% Copy Copies To 1: CHAPIN PRECIADO MD, BASHAR J MD July 21, 2022 14:15
== END ==
LOC: CARD 11:22
PROVIDERS: ATTEND Internal Medicine Cardiovascular Disease
DX: R07.9 Chest pain, unspecified (principal)
CPT/HCPCS: 78452; 93017; A9502

== ENCOUNTER → 2022-12-08 | Outpatient (CLI) | payer BC ==
[~2022-12-08] MED LIST changes: -CATHETER FLUSH 10 ML SYR IVP PRN
--- NOTE | 2022-12-08 15:18 | Diagnostic Imaging Report ---
EXAMINATION: CT calcium scoring without contrast. TECHNIQUE: Multiple contiguous axial images were obtained through the chest without the use of intravenous contrast for purposes of calcium scoring. All CT scans use one or more of the following dose optimizing techniques: automated exposure control, MA and/or KvP adjustment based on patient size and exam type or iterative reconstruction. HISTORY: Chest pain COMPARISON: None available. FINDINGS: The calculated coronary artery calcium score is 0. Visualized portions of the lungs are clear. Heart size is normal. No pericardial effusion. Aorta is normal in caliber. No lymphadenopathy is seen. There are no suspicious osseus lesions. IMPRESSION: 1. Calculated coronary artery calcium score of 0. Dictated by: Dictated on workstation # [id number]
== END ==
LOC: RAD 13:45
PROVIDERS: ATTEND Internal Medicine Cardiovascular Disease
DX: R07.9 Chest pain, unspecified (principal)
CPT/HCPCS: 75571